=== PATIENT | female | born 1940 | race African-American/Black ===

== ENCOUNTER 2017-04-04 09:41 | Emergency (ER) | payer MEDICARE, OTHER ==
--- NOTE | 2017-04-04 11:27 | ED ---
GI Bleed HPI - General Chief complaint: GI Bleed Stated complaint: Blood in stool Time Seen by Provider: 04/04/17 11:00 Source: patient, RN notes reviewed Mode of arrival: wheelchair Limitations: no limitations - History of Present Illness Initial comments: This is a 77-year-old female who presents with complaints of blood per rectum. She did have a history of hemorrhoids in the past she denies any overt abdominal pain though she did have some left-sided chest pain was sharp in nature and radiated to her back area. He does state the pain was sharp she has had this chest pain and back pain for last 4 days she states it gets worse with movements and deep breathing she has any fevers chills sweats cough or other symptoms. MD complaint: blood on toilet paper - Related Data Home Medications Medication Instructions Recorded Confirmed Ascorbic Acid [Vitamin C] 500 mg PO DAILY@1200 06/20/14 04/04/17 Chlorthalidone 25 mg PO DAILY 06/20/14 04/04/17 Isosorbide Mononitrate [Imdur] 30 mg PO DAILY 06/20/14 04/04/17 Lisinopril [Lisinopril] 20 mg PO HS 06/20/14 04/04/17 Nitroglycerin Sl Tabs [Nitrostat] 0.4 mg SUBLINGUAL Q5M PRN 06/20/14 04/04/17 Simvastatin [Simvastatin] 40 mg PO HS 06/20/14 04/04/17 amLODIPine [amLODIPine] 10 mg PO DAILY 06/20/14 04/04/17 Cholecalciferol [Vitamin D3] 1,000 unit PO DAILY 04/04/17 04/04/17 Fish Oil/Dha/Epa [Fish Oil 1,200 1 cap PO DAILY 04/04/17 04/04/17 mg Fish Oil] Allergies Allergy/AdvReac Type Severity Reaction Status Date / Time Penicillins AdvReac Unknown Verified 04/04/17 11:25 Review of Systems ROS Statement: Those systems with pertinent positive or pertinent negative responses have been documented in the HPI. ROS Other: All systems not noted in ROS Statement are negative. Past Medical History Past Medical History: Coronary Artery Disease (CAD), Chest Pain / Angina, Heart Failure, COPD, GERD/Reflux, Hyperlipidemia, Hypertension, Pneumonia Additional Past Medical History / Comment(s): GOUT History of Any Multi-Drug Resistant Organisms: None Reported Additional Past Surgical History / Comment(s): breast biopdy Past Anesthesia/Blood Transfusion Reactions: No Reported Reaction Past Psychological History: No Psychological Hx Reported Smoking Status: Never smoker Past Alcohol Use History: None Reported Past Drug Use History: None Reported General Exam - General Exam Comments Initial Comments: This is a well-developed well-nourished awake alert oriented 3 female Limitations: no limitations General appearance: alert, in no apparent distress Head exam: Present: atraumatic, normocephalic, normal inspection Eye exam: Present: normal appearance, PERRL, EOMI. Absent: scleral icterus, conjunctival injection, periorbital swelling ENT exam: Present: normal exam, mucous membranes moist Neck exam: Present: normal inspection. Absent: tenderness, meningismus, lymphadenopathy Respiratory exam: Present: normal lung sounds bilaterally, chest wall tenderness (Reproducible tenderness palpation along the costochondral margin.). Absent: respiratory distress, wheezes, rales, rhonchi, stridor Cardiovascular Exam: Present: regular rate, normal rhythm, normal heart sounds. Absent: systolic murmur, diastolic murmur, rubs, gallop, clicks GI/Abdominal exam: Present: soft, normal bowel sounds. Absent: distended, tenderness, guarding, rebound, rigid, pulsatile mass, hernia Extremities exam: Present: normal inspection, full ROM, normal capillary refill. Absent: tenderness, pedal edema, joint swelling, calf tenderness Back exam: Present: normal inspection Neurological exam: Present: alert, oriented X3, CN II-XII intact Psychiatric exam: Present: normal affect, normal mood Skin exam: Present: warm, dry, intact, normal color. Absent: rash Course Vital Signs 04/04/17 04/04/17 04/04/17 10:11 10:28 14:26 Temperature 98.4 F 97.1 F L 97.2 F L Pulse Rate 62 56 L 55 L Respiratory 20 15 18 Rate Blood Pressure 142/61 125/63 160/72 O2 Sat by Pulse 98 100 100 Oximetry - Reevaluation(s) Reevaluation #1: 04/04/17 14:48 I did perform rectal exam of the patient with female 7 present no gross blood and was heme-negative. Medical Decision Making - Medical Decision Making I did discuss findings with the patient family - Lab Data Result diagrams: 04/04/17 11:30 04/04/17 11:30 Lab Results 04/04/17 04/04/17 04/04/17 Range/Units 11:30 11:30 11:30 WBC 4.9 (3.8-10.6) k/uL RBC 3.70 L (3.80-5.40) m/uL Hgb 11.1 L (11.4-16.0) gm/dL Hct 34.0 (34.0-46.0) % MCV 91.9 (80.0-100.0) fL MCH 30.1 (25.0-35.0) pg MCHC 32.7 (31.0-37.0) g/dL RDW 13.1 (11.5-15.5) % Plt Count 162 (150-450) k/uL Neutrophils % 51 % Lymphocytes % 36 % Monocytes % 7 % Eosinophils % 2 % Basophils % 1 % Neutrophils # 2.5 (1.3-7.7) k/uL Lymphocytes # 1.7 (1.0-4.8) k/uL Monocytes # 0.4 (0-1.0) k/uL Eosinophils # 0.1 (0-0.7) k/uL Basophils # 0.1 (0-0.2) k/uL PT (9.0-12.0) sec INR (<1.1) APTT (22.0-30.0) sec Sodium 138 (137-145) mmol/L Potassium 4.2 (3.5-5.1) mmol/L Chloride 100 (98-107) mmol/L Carbon Dioxide 30 (22-30) mmol/L Anion Gap 8 mmol/L BUN 22 H (7-17) mg/dL Creatinine 1.16 H (0.52-1.04) mg/dL Est GFR (MDRD) Af Amer 55 (>60 ml/min/1.73 sqM) Est GFR (MDRD) Non-Af 45 (>60 ml/min/1.73 sqM) Glucose 96 (74-99) mg/dL Calcium 9.5 (8.4-10.2) mg/dL Magnesium 1.9 (1.6-2.3) mg/dL Total Bilirubin 0.7 (0.2-1.3) mg/dL AST 37 H (14-36) U/L ALT 31 (9-52) U/L Alkaline Phosphatase 43 (38-126) U/L Total Creatine Kinase 460 H (30-135) U/L CK-MB (CK-2) 2.6 H* (0.0-2.4) ng/mL CK-MB (CK-2) Rel Index 0.6 Troponin I <0.012 (0.000-0.034) ng/mL Total Protein 7.2 (6.3-8.2) g/dL Albumin 4.0 (3.5-5.0) g/dL Stool Occult Blood (Negative) Blood Type Blood Type Recheck Antibody Screen Spec Expiration Date 04/04/17 04/04/17 04/04/17 Range/Units 11:30 11:30 13:33 WBC (3.8-10.6) k/uL RBC (3.80-5.40) m/uL Hgb (11.4-16.0) gm/dL Hct (34.0-46.0) % MCV (80.0-100.0) fL MCH (25.0-35.0) pg MCHC (31.0-37.0) g/dL RDW (11.5-15.5) % Plt Count (150-450) k/uL Neutrophils % % Lymphocytes % % Monocytes % % Eosinophils % % Basophils % % Neutrophils # (1.3-7.7) k/uL Lymphocytes # (1.0-4.8) k/uL Monocytes # (0-1.0) k/uL Eosinophils # (0-0.7) k/uL Basophils # (0-0.2) k/uL PT 10.5 (9.0-12.0) sec INR 1.0 (<1.1) APTT 24.3 (22.0-30.0) sec Sodium (137-145) mmol/L Potassium (3.5-5.1) mmol/L Chloride (98-107) mmol/L Carbon Dioxide (22-30) mmol/L Anion Gap mmol/L BUN (7-17) mg/dL Creatinine (0.52-1.04) mg/dL Est GFR (MDRD) Af Amer (>60 ml/min/1.73 sqM) Est GFR (MDRD) Non-Af (>60 ml/min/1.73 sqM) Glucose (74-99) mg/dL Calcium (8.4-10.2) mg/dL Magnesium (1.6-2.3) mg/dL Total Bilirubin (0.2-1.3) mg/dL AST (14-36) U/L ALT (9-52) U/L Alkaline Phosphatase (38-126) U/L Total Creatine Kinase (30-135) U/L CK-MB (CK-2) (0.0-2.4) ng/mL CK-MB (CK-2) Rel Index Troponin I (0.000-0.034) ng/mL Total Protein (6.3-8.2) g/dL Albumin (3.5-5.0) g/dL Stool Occult Blood Negative (Negative) Blood Type O Positive Blood Type Recheck No Antibody Screen NEGATIVE Spec Expiration Date 04/07/2017 - 7164 - EKG Data -: EKG Interpreted by Nv EKG shows normal: sinus rhythm (Sinus bradycardia with a rate of 55 LA interval 206 QRS duration 90 QT/QTC of 470/449 moderate voltage criteria for LVH no acute ST-T wave changes.) - Radiology Data Radiology results: report reviewed (I did review the imaging and reports no acute findings.), image reviewed Disposition Clinical Impression: Chest wall pain, Costochondritis Disposition: HOME SELF-CARE Condition: Good Instructions: Costochondritis (ED) Referrals: Blaise Liao MD [Primary Care Provider] - 1-2 days
[2017-04-04 11:45] LABS: Basophils # (A) 0.1 k/uL (0-0.2); Basophils % (A) 1 %; CH 30.1; CHCM 32.9; Eosinophils # (A) 0.1 k/uL (0-0.7); Eosinophils % (A) 2 %; HDW 2.11; HGB 11.1 gm/dL (11.4-16.0); Luc # (Auto) 0.14; Luc % (Auto) 3; Lymphocytes # (A) 1.7 k/uL (1.0-4.8); Lymphocytes % (A) 36 %; MCH 30.1 pg (25.0-35.0); MCHC 32.7 g/dL (31.0-37.0); MCV 91.9 fL (80.0-100.0); Mean Platelet Volume 7.4; Monocytes # (A) 0.4 k/uL (0-1.0); Monocytes % (A) 7 %; Neutrophils # (A) 2.5 k/uL (1.3-7.7); Neutrophils % (A) 51 %; RDW 13.1 % (11.5-15.5); WBC 4.9 k/uL (3.8-10.6); WBC (Perox) 4.69
[2017-04-04 11:56] LABS: Partial Thromboplastin Time 24.3 sec (22.0-30.0); Prothrombin Time 10.5 sec (9.0-12.0)
--- NOTE | 2017-04-04 11:56 | XR ---
EXAMINATION TYPE: XR abdomen 1V DATE OF EXAM: 04/04/2017 11:51 AM COMPARISON: NONE HISTORY: Rectal bleeding TECHNIQUE: One view abdominal series FINDINGS: The osseous structures are intact. The bowel gas pattern is nonspecific. Severe scoliosis noted. Art hropathy of the hips. IMPRESSION: 1. Nonspecific abdomen.
--- NOTE | 2017-04-04 11:58 | XR ---
EXAMINATION TYPE: XR chest 2V DATE OF EXAM: 04/04/2017 11:51 AM COMPARISON: 12/27/2013 TECHNIQUE: PA and lateral views submitted. HISTORY: Cough FINDINGS: The lungs are clear and there is no pneumothorax, pleural effusion, or focal pneumonia. Scoliotic c urvature noted. Limited inspiration. Calcified granuloma left upper lobe suspected stable apical pleu ral thickening. Arthropathy of the shoulders and diffuse osteopenia. No overt failure. IMPRESSION: 1. No acute process.
[2017-04-04 12:04] LABS: Calcium 9.5 mg/dL (8.4-10.2); Magnesium 1.9 mg/dL (1.6-2.3); Potassium 4.2 mmol/L (3.5-5.1); Total Bilirubin 0.7 mg/dL (0.2-1.3); Total Protein 7.2 g/dL (6.3-8.2)
[2017-04-04 12:10] LABS: Creatine Kinase 460 U/L (30-135)
[2017-04-04 12:24] LABS: Troponin I <0.012 ng/mL (0.000-0.034)
[2017-04-04 12:45] LABS: Creatine Kinase MB 2.6 ng/mL (0.0-2.4)
[2017-04-04 14:26] VITALS: BP 160/72; PULSE 55; RESP 18; TEMP 97.2
== END 2017-04-04 15:00 | disposition home or self-care (01) ==
LOC: EC 09:41
DX: M94.0 Chondrocostal junction syndrome [Tietze] (principal); K92.2 Gastrointestinal hemorrhage, unspecified; I25.10 Atherosclerotic heart disease of native coronary artery without angina pectoris; E78.5 Hyperlipidemia, unspecified; I11.0 Hypertensive heart disease with heart failure; I50.9 Heart failure, unspecified; Z79.899 Other long term (current) drug therapy; Z88.0 Allergy status to penicillin
CPT/HCPCS: 36415; 71020; 74000; 80053; 82272; 82550; 82553; 83735; 84484; 85025; 85610; 85730; 86850; 86900; 86901; 93005; 99285

== ENCOUNTER 2018-01-15 10:04 | Emergency (ER) | payer MEDICARE, OTHER ==
[2018-01-15] MEDS ORDERED: SODIUM CHLORIDE 0.9% 1,000 ML IV STA (11:04)
[2018-01-15] MEDS ORDERED: FAMOTIDINE 20 MG/2 ML VIAL IV STA (11:05)
--- NOTE | 2018-01-15 11:21 | ED ---
GI Bleed HPI - General Chief complaint: GI Bleed Stated complaint: black stool Time Seen by Provider: 01/15/18 10:29 Source: patient, family, RN notes reviewed Mode of arrival: ambulatory Limitations: no limitations - History of Present Illness Initial comments: This is an 78-year-old female who states she had the onset of diarrhea on the first of this month some mild epigastric discomfort which she states she's been having black stools for last day or so she does admit she's been taking Pepto- Bismol. She has no prior history of GI bleed. Her son states she's been eating pigtail and believes this may be part of the problem. She also looks a little pale per the patient's son she has been slightly lightheaded she had no nausea vomiting fevers chills sweats or other symptoms. MD complaint: melena - Related Data Home Medications Medication Instructions Recorded Confirmed Ascorbic Acid [Vitamin C] 500 mg PO DAILY 06/20/14 01/15/18 Chlorthalidone 25 mg PO DAILY 06/20/14 01/15/18 Isosorbide Mononitrate [Imdur] 30 mg PO DAILY 06/20/14 01/15/18 Cholecalciferol [Vitamin D3] 1,000 unit PO DAILY 04/04/17 01/15/18 Fish Oil/Dha/Epa [Fish Oil 1,200 2 cap PO DAILY@1200 04/04/17 01/15/18 mg Fish Oil] amLODIPine [Norvasc] 5 mg PO DAILY 09/16/17 01/15/18 Albuterol Inhaler [Ventolin Hfa 2 puff INHALATION RT-QID PRN 01/15/18 01/15/18 Inhaler] Cyanocobalamin [Vitamin B-12] 500 mcg PO DAILY@1200 01/15/18 01/15/18 Lisinopril [Zestril] 20 mg PO DAILY 01/15/18 01/15/18 Allergies Allergy/AdvReac Type Severity Reaction Status Date / Time Penicillins AdvReac Unknown Verified 01/15/18 10:43 Review of Systems ROS Statement: Those systems with pertinent positive or pertinent negative responses have been documented in the HPI. ROS Other: All systems not noted in ROS Statement are negative. Past Medical History Past Medical History: Coronary Artery Disease (CAD), Chest Pain / Angina, Heart Failure, COPD, GERD/Reflux, Hyperlipidemia, Hypertension, Pneumonia Additional Past Medical History / Comment(s): GOUT History of Any Multi-Drug Resistant Organisms: None Reported Additional Past Surgical History / Comment(s): breast biopdy Past Anesthesia/Blood Transfusion Reactions: No Reported Reaction Past Psychological History: No Psychological Hx Reported Smoking Status: Never smoker Past Alcohol Use History: None Reported Past Drug Use History: None Reported General Exam - General Exam Comments Initial Comments: This is a well-developed well-nourished awake alert oriented 3 female Limitations: no limitations General appearance: alert, in no apparent distress Head exam: Present: atraumatic, normocephalic, normal inspection Eye exam: Present: normal appearance, PERRL, EOMI. Absent: scleral icterus, conjunctival injection, periorbital swelling ENT exam: Present: normal exam, mucous membranes moist Neck exam: Present: normal inspection. Absent: tenderness, meningismus, lymphadenopathy Respiratory exam: Present: normal lung sounds bilaterally. Absent: respiratory distress, wheezes, rales, rhonchi, stridor Cardiovascular Exam: Present: regular rate, normal rhythm, normal heart sounds. Absent: systolic murmur, diastolic murmur, rubs, gallop, clicks GI/Abdominal exam: Present: soft, normal bowel sounds. Absent: distended, tenderness, guarding, rebound, rigid Rectal exam: Present: normal inspection, other (Brown soft stool no gross blood no evidence of any black material) Extremities exam: Present: normal inspection, full ROM, normal capillary refill. Absent: tenderness, pedal edema, joint swelling, calf tenderness Back exam: Present: normal inspection Neurological exam: Present: alert, oriented X3, CN II-XII intact Psychiatric exam: Present: normal affect, normal mood Skin exam: Present: warm, dry, intact, normal color. Absent: rash Course Vital Signs 01/15/18 01/15/18 10:25 12:31 Temperature 97.7 F Pulse Rate 70 55 L Respiratory 20 18 Rate Blood Pressure 145/72 165/70 O2 Sat by Pulse 100 99 Oximetry Medical Decision Making - Medical Decision Making Reevaluation patient reveals no symptoms. I did discuss the findings with her and her son were present. The dark-colored stools are consistent with Pepto- Bismol ingestion. The Hemoccult was negative. Patient be discharged to follow- up with her doctor. - Lab Data Result diagrams: 01/15/18 11:55 01/15/18 11:55 Lab Results 01/15/18 01/15/18 01/15/18 Range/Units 11:55 11:55 11:55 WBC 4.9 (3.8-10.6) k/uL RBC 3.68 L (3.80-5.40) m/uL Hgb 10.8 L (11.4-16.0) gm/dL Hct 32.9 L (34.0-46.0) % MCV 89.3 (80.0-100.0) fL MCH 29.4 (25.0-35.0) pg MCHC 32.9 (31.0-37.0) g/dL RDW 13.3 (11.5-15.5) % Plt Count 163 (150-450) k/uL Neutrophils % 52 % Lymphocytes % 37 % Monocytes % 6 % Eosinophils % 2 % Basophils % 0 % Neutrophils # 2.5 (1.3-7.7) k/uL Lymphocytes # 1.8 (1.0-4.8) k/uL Monocytes # 0.3 (0-1.0) k/uL Eosinophils # 0.1 (0-0.7) k/uL Basophils # 0.0 (0-0.2) k/uL PT 10.2 (9.0-12.0) sec INR 1.0 (<1.2) APTT 23.5 (22.0-30.0) sec Sodium 138 (137-145) mmol/L Potassium 3.5 (3.5-5.1) mmol/L Chloride 100 (98-107) mmol/L Carbon Dioxide 31 H (22-30) mmol/L Anion Gap 7 mmol/L BUN 28 H (7-17) mg/dL Creatinine 1.24 H (0.52-1.04) mg/dL Est GFR (MDRD) Af Amer 50 (>60 ml/min/1.73 sqM) Est GFR (MDRD) Non-Af 42 (>60 ml/min/1.73 sqM) Glucose 87 (74-99) mg/dL Calcium 9.4 (8.4-10.2) mg/dL Magnesium 2.1 (1.6-2.3) mg/dL Total Bilirubin 0.4 (0.2-1.3) mg/dL AST 29 (14-36) U/L ALT 27 (9-52) U/L Alkaline Phosphatase 49 (38-126) U/L Total Creatine Kinase (30-135) U/L CK-MB (CK-2) (0.0-2.4) ng/mL CK-MB (CK-2) Rel Index Troponin I (0.000-0.034) ng/mL Total Protein 6.8 (6.3-8.2) g/dL Albumin 3.8 (3.5-5.0) g/dL Stool Occult Blood (Negative) 01/15/18 01/15/18 Range/Units 11:55 11:55 WBC (3.8-10.6) k/uL RBC (3.80-5.40) m/uL Hgb (11.4-16.0) gm/dL Hct (34.0-46.0) % MCV (80.0-100.0) fL MCH (25.0-35.0) pg MCHC (31.0-37.0) g/dL RDW (11.5-15.5) % Plt Count (150-450) k/uL Neutrophils % % Lymphocytes % % Monocytes % % Eosinophils % % Basophils % % Neutrophils # (1.3-7.7) k/uL Lymphocytes # (1.0-4.8) k/uL Monocytes # (0-1.0) k/uL Eosinophils # (0-0.7) k/uL Basophils # (0-0.2) k/uL PT (9.0-12.0) sec INR (<1.2) APTT (22.0-30.0) sec Sodium (137-145) mmol/L Potassium (3.5-5.1) mmol/L Chloride (98-107) mmol/L Carbon Dioxide (22-30) mmol/L Anion Gap mmol/L BUN (7-17) mg/dL Creatinine (0.52-1.04) mg/dL Est GFR (MDRD) Af Amer (>60 ml/min/1.73 sqM) Est GFR (MDRD) Non-Af (>60 ml/min/1.73 sqM) Glucose (74-99) mg/dL Calcium (8.4-10.2) mg/dL Magnesium (1.6-2.3) mg/dL Total Bilirubin (0.2-1.3) mg/dL AST (14-36) U/L ALT (9-52) U/L Alkaline Phosphatase (38-126) U/L Total Creatine Kinase 252 H (30-135) U/L CK-MB (CK-2) 1.9 (0.0-2.4) ng/mL CK-MB (CK-2) Rel Index 0.8 Troponin I <0.012 (0.000-0.034) ng/mL Total Protein (6.3-8.2) g/dL Albumin (3.5-5.0) g/dL Stool Occult Blood Negative (Negative) - EKG Data -: EKG Interpreted by La EKG shows normal: sinus rhythm (EKG shows sinus bradycardia rate of 49 UT interval 192 QRS duration 94 QT since QTC of 468/422 minimal voltage criteria for LVH no acute ST-T wave changes) - Radiology Data Radiology results: report reviewed (Imaging was reviewed no acute findings.), image reviewed Disposition Clinical Impression: Enteritis, Feared condition not demonstrated, Chronic renal insufficiency, Chronic anemia Disposition: HOME SELF-CARE Condition: Good Instructions: Enteritis (ED) Referrals: Blaise Liao MD [Primary Care Provider] - 1-2 days
[2018-01-15 12:22] LABS: Basophils % (A) 0 %; Eosinophils # (A) 0.1 k/uL (0-0.7); Eosinophils % (A) 2 %; HCT 32.9 % (34.0-46.0); HGB 10.8 gm/dL (11.4-16.0); Lymphocytes # (A) 1.8 k/uL (1.0-4.8); Lymphocytes % (A) 37 %; MCH 29.4 pg (25.0-35.0); MCHC 32.9 g/dL (31.0-37.0); MCV 89.3 fL (80.0-100.0); Mean Platelet Volume 7.3; Monocytes # (A) 0.3 k/uL (0-1.0); Monocytes % (A) 6 %; Neutrophils # (A) 2.5 k/uL (1.3-7.7); Neutrophils % (A) 52 %; Platelet Count 163 k/uL (150-450); RBC 3.68 m/uL (3.80-5.40); RDW 13.3 % (11.5-15.5); WBC 4.9 k/uL (3.8-10.6)
[2018-01-15 12:29] LABS: Partial Thromboplastin Time 23.5 sec (22.0-30.0); Prothrombin Time 10.2 sec (9.0-12.0)
[2018-01-15 12:31] LABS: Albumin 3.8 g/dL (3.5-5.0); Calcium 9.4 mg/dL (8.4-10.2); Potassium 3.5 mmol/L (3.5-5.1); Total Bilirubin 0.4 mg/dL (0.2-1.3); Total Protein 6.8 g/dL (6.3-8.2)
[2018-01-15 12:32] VITALS: RESP 18
[2018-01-15 12:34] LABS: Creatine Kinase 252 U/L (30-135)
--- NOTE | 2018-01-15 12:44 | XR ---
EXAMINATION TYPE: XR abdomen acute w cxr DATE OF EXAM: 01/15/2018 CLINICAL HISTORY: Diarrhea for 4 days. Chest pain. TECHNIQUE: Single frontal view of chest is obtained. Supine and upright views of the abdomen are acq uired. COMPARISON: CXR from 09/16/2017. FINDINGS: There is chronic parenchymal change without suspicious focal airspace opacity, pleural effu gino, or pneumothorax seen bilaterally. Cardiac silhouette size appears stable and upper limits of n ormal with ectatic thoracic aorta. Underlying scoliosis is redemonstrated. Gas is noted in nondistended small bowel loops. Gas and fecal material is seen in nondistended colon . Scattered pelvic phleboliths are seen. Underlying scoliosis is present. No pneumoperitoneum is iden tified. IMPRESSION: 1. No acute pulmonary process. 2. Overall nonspecific but likely nonobstructive bowel gas pattern.
[2018-01-15 12:47] LABS: Creatine Kinase MB 1.9 ng/mL (0.0-2.4); Troponin I <0.012 ng/mL (0.000-0.034)
[2018-01-15 13:44] VITALS: BP 166/79; PULSE 60; TEMP 98
== END 2018-01-15 13:41 | disposition home or self-care (01) ==
LOC: EC 10:04
DX: K52.9 Noninfective gastroenteritis and colitis, unspecified (principal); D64.9 Anemia, unspecified; N18.9 Chronic kidney disease, unspecified; Z71.1 Person with feared health complaint in whom no diagnosis is made; R00.1 Bradycardia, unspecified; I13.0 Hypertensive heart and chronic kidney disease with heart failure and stage 1 through stage 4 chronic kidney disease, or unspecified chronic kidney disease; I50.9 Heart failure, unspecified; I25.10 Atherosclerotic heart disease of native coronary artery without angina pectoris; Z79.899 Other long term (current) drug therapy; Z88.0 Allergy status to penicillin; Z86.79 Personal history of other diseases of the circulatory system
CPT/HCPCS: 36415; 74022; 80053; 82272; 82550; 82553; 83735; 84484; 85025; 85610; 85730; 86850; 86900; 86901; 93005; 96361; 96374; 99285

== ENCOUNTER → 2018-03-12 | Outpatient (CLI) | payer MEDICARE, OTHER ==
[2018-03-12 12:01] LABS: Basophils % (A) 1 %; Eosinophils # (A) 0.1 k/uL (0-0.7); Eosinophils % (A) 1 %; HCT 36.4 % (34.0-46.0); HGB 11.5 gm/dL (11.4-16.0); Lymphocytes # (A) 2.2 k/uL (1.0-4.8); Lymphocytes % (A) 39 %; MCH 28.4 pg (25.0-35.0); MCHC 31.5 g/dL (31.0-37.0); Mean Platelet Volume 7.2; Monocytes # (A) 0.4 k/uL (0-1.0); Monocytes % (A) 7 %; Neutrophils # (A) 2.9 k/uL (1.3-7.7); Neutrophils % (A) 51 %; Platelet Count 219 k/uL (150-450); RBC 4.05 m/uL (3.80-5.40); RDW 13.1 % (11.5-15.5); WBC 5.7 k/uL (3.8-10.6)
[2018-03-12 12:12] LABS: Appearance,Urine Cloudy (Clear); Bilirubin,Urine Negative (Negative); Blood,Urine Negative (Negative); Calcium 9.8 mg/dL (8.4-10.2); Color,Urine Yellow; Glucose,Urine (UA) Negative (Negative); Hyaline Casts,Urine 3 /lpf (0-2); Ketones,Urine Negative (Negative); Leukocyte Esterase,Urine Trace (Negative); Mucus,Urine Rare /hpf; Nitrite,Urine Negative (Negative); PH, Urine 6.5 (5.0-8.0); Phosphorus 3.7 mg/dL (2.5-4.5); Potassium 3.8 mmol/L (3.5-5.1); Protein,Urine Trace (Negative); RBC,Urine <1 /hpf (0-5); Specific Gravity,Urine 1.017 (1.001-1.035); Squamous Epithelial Cell,Urine 6 /hpf (0-4); Uric Acid 6.7 mg/dL (3.7-7.4); Urobilinogen,Urine <2.0 mg/dL (<2.0); WBC,Urine 1 /hpf (0-5)
[2018-03-12 17:33] LABS: Parathyroid Hormone Intact 54.3 pg/mL (14.0-72.0)
[2018-03-12 17:49] LABS: Iron Saturation 18.15 (12.00-45.00)
[2018-03-12 17:57] LABS: Vitamin D 25 Hydroxy 27.4 ng/mL (30.0-100.0)
== END | disposition home or self-care (01) ==
LOC: LABWHC1 11:14
PROVIDERS: ATTEND Internal Medicine Nephrology
DX: M10.9 Gout, unspecified (principal); D63.1 Anemia in chronic kidney disease; E83.39 Other disorders of phosphorus metabolism; N18.3 Chronic kidney disease, stage 3 (moderate)
CPT/HCPCS: 36415; 80048; 81001; 82306; 82728; 83540; 83550; 83735; 83970; 84100; 84550; 85025

== ENCOUNTER → 2018-07-31 | Outpatient (CLI) | payer MEDICARE, OTHER ==
--- NOTE | 2018-07-31 11:39 | XR ---
EXAMINATION TYPE: XR foot complete bilateral DATE OF EXAM: 07/31/2018 COMPARISON: NONE HISTORY: Pain TECHNIQUE: Three views are submitted of each foot. FINDINGS: The osseous structures are intact. There is no acute fracture or dislocation. There is diffuse ost eopenia. There is arthropathy of the first MTP joint bilaterally. Pes planus deformity noted bilatera lly and there are calcaneal spurs bilaterally. Hammertoe deformities bilaterally. Hallux valgus defor mity of the first digit bilaterally. There is a hypertrophic change and narrowing of the calcaneocuboid joint on the left greater than the right. IMPRESSION: 1. Pes planus deformities bilaterally 2. Diffuse osteopenia 3. Arthropathy
== END | disposition home or self-care (01) ==
LOC: RADXRMAIN 11:05
PROVIDERS: ATTEND Family Medicine
DX: M21.42 Flat foot [pes planus] (acquired), left foot (principal); M21.41 Flat foot [pes planus] (acquired), right foot; M85.872 Other specified disorders of bone density and structure, left ankle and foot; M85.871 Other specified disorders of bone density and structure, right ankle and foot; M12.872 Other specific arthropathies, not elsewhere classified, left ankle and foot; M12.871 Other specific arthropathies, not elsewhere classified, right ankle and foot

== ENCOUNTER → 2018-11-02 | Outpatient (CLI) | payer MEDICARE, OTHER ==
--- NOTE | 2018-11-08 10:05 | MM ---
Reason for exam: screening (asymptomatic). Last mammogram was performed 1 year ago. History: Patient is postmenopausal. Benign excisional biopsy of the left breast, June 2014. Benign left mammotome panel of the left breast, October 21, 2013. Benign core biopsy of the left breast. Benign excisional biopsy of the left breast. Took hormonal contraceptives for 2 years. Physical Findings: A clinical breast exam by your physician is recommended on an annual basis and results should be correlated with mammographic findings. MG 3D Screening Mammo W/Cad Bilateral CC and MLO view(s) were taken. Prior study comparison: October 24, 2017, bilateral MG 3d screening mammo w/cad. October 03, 2016, bilateral MG 3d screening mammo w/cad. There are scattered fibroglandular densities. Stable benign calcifications. There is no discrete abnormality. No significant changes when compared with prior studies. ASSESSMENT: Benign, BI-RAD 2 RECOMMENDATION: Routine screening mammogram of both breasts in 1 year.
== END | disposition home or self-care (01) ==
LOC: RADMAMWWP 13:53
PROVIDERS: ATTEND Family Medicine
DX: Z12.31 Encounter for screening mammogram for malignant neoplasm of breast (principal)
CPT/HCPCS: 77063; 77067

== ENCOUNTER 2018-11-09 13:35 | Emergency (ER) | payer MEDICARE, OTHER ==
[2018-11-09 13:47] VITALS: RESP 18; TEMP 98.1
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
[2018-11-09 14:34] LABS: Basophils % (A) 1 %; Eosinophils # (A) 0.2 k/uL (0-0.7); Eosinophils % (A) 3 %; HCT 35.6 % (34.0-46.0); HGB 11.9 gm/dL (11.4-16.0); Lymphocytes # (A) 2.4 k/uL (1.0-4.8); Lymphocytes % (A) 38 %; MCH 29.9 pg (25.0-35.0); MCHC 33.3 g/dL (31.0-37.0); MCV 89.7 fL (80.0-100.0); Mean Platelet Volume 6.8; Monocytes # (A) 0.4 k/uL (0-1.0); Monocytes % (A) 6 %; Neutrophils # (A) 3.1 k/uL (1.3-7.7); Neutrophils % (A) 51 %; Platelet Count 194 k/uL (150-450); RBC 3.97 m/uL (3.80-5.40); RDW 13.7 % (11.5-15.5); WBC 6.2 k/uL (3.8-10.6)
[2018-11-09 14:44] LABS: Calcium 9.6 mg/dL (8.4-10.2)
--- NOTE | 2018-11-09 15:22 | US ---
EXAMINATION TYPE: US venous doppler duplex LE DATE OF EXAM: 11/09/2018 2:09 PM COMPARISON: NONE CLINICAL HISTORY: Pain. SIDE PERFORMED: Bilateral TECHNIQUE: The lower extremity deep venous system is examined utilizing real time linear array sonog ozzy with graded compression, doppler sonography and color-flow sonography. VESSELS IMAGED: External Iliac Vein (EIV) Common Femoral Vein Deep Femoral Vein Greater Saphenous Vein * Femoral Vein Popliteal Vein Small Saphenous Vein * Proximal Calf Veins (* superficial vessels) Right Leg: Negative for DVT Left Leg: Negative for DVT Unable to augment due to patient position. IMPRESSION: 1. Bilateral Lower extremity ultrasound negative for deep venous tendinosis.
--- NOTE | 2018-11-09 16:31 | XR ---
EXAMINATION TYPE: XR chest 2V DATE OF EXAM: 11/09/2018 COMPARISON: Chest x-ray September 16, 2017 HISTORY: Lower leg swelling and chest pain. TECHNIQUE: Frontal and lateral views of the chest are obtained. FINDINGS: Exam suboptimal due to patient's large body habitus There is redemonstration of cardiomega ly with ectatic thoracic aorta. Densities over the epigastric region on frontal view do not reproduc e on lateral view presumed external to the patient. Suspect mild central vascular congestion. No new focal airspace opacity, pleural effusion, or pneumothorax is seen. Underlying scoliosis is redemonstr ated. IMPRESSION: Cardiomegaly with perhaps mild central vascular congestion but no focal infiltrate.
[2018-11-09 16:59] VITALS: BP 149/74; PULSE 61
== END 2018-11-09 16:59 | disposition home or self-care (01) ==
LOC: EC 13:35
DX: M79.89 Other specified soft tissue disorders (principal); M79.604 Pain in right leg; M79.605 Pain in left leg; I25.10 Atherosclerotic heart disease of native coronary artery without angina pectoris; I11.0 Hypertensive heart disease with heart failure; I50.9 Heart failure, unspecified; Z79.899 Other long term (current) drug therapy; Z88.0 Allergy status to penicillin
CPT/HCPCS: 36415; 71046; 80048; 83880; 85025; 93005; 93970; 99284

== ENCOUNTER → 2019-01-11 | Outpatient (CLI) | payer MEDICARE, OTHER ==
[2019-01-11 13:21] LABS: Appearance,Urine Clear (Clear); Bilirubin,Urine Negative (Negative); Blood,Urine Negative (Negative); Color,Urine Yellow; Glucose,Urine (UA) Negative (Negative); Ketones,Urine Negative (Negative); Leukocyte Esterase,Urine Negative (Negative); Nitrite,Urine Negative (Negative); Protein,Urine Trace (Negative); Specific Gravity,Urine 1.009 (1.001-1.035); Urobilinogen,Urine <2.0 mg/dL (<2.0)
[2019-01-11 13:22] LABS: Basophils % (A) 1 %; Eosinophils # (A) 0.1 k/uL (0-0.7); Eosinophils % (A) 2 %; HCT 37.9 % (34.0-46.0); HGB 12.2 gm/dL (11.4-16.0); Lymphocytes # (A) 2.1 k/uL (1.0-4.8); Lymphocytes % (A) 38 %; MCH 29.5 pg (25.0-35.0); MCHC 32.3 g/dL (31.0-37.0); MCV 91.4 fL (80.0-100.0); Mean Platelet Volume 6.3; Monocytes # (A) 0.3 k/uL (0-1.0); Monocytes % (A) 6 %; Neutrophils # (A) 2.9 k/uL (1.3-7.7); Neutrophils % (A) 52 %; Platelet Count 211 k/uL (150-450); RBC 4.15 m/uL (3.80-5.40); RDW 13.7 % (11.5-15.5); WBC 5.6 k/uL (3.8-10.6)
[2019-01-11 19:42] LABS: Iron Saturation 31.62 (12.00-45.00)
[2019-01-11 19:48] LABS: Albumin 4.5 g/dL (3.80-4.90); Anion Gap 10.6 mmol/L (4.00-12.00); Carbon Dioxide 27.4 mmol/L (21.6-31.8); LDL Cholesterol,Calculated 141.8 mg/dL (0.0-131.0); Phosphorus 4.2 mg/dL (2.4-5.1); Potassium 4.4 mmol/L (3.5-5.5); Uric Acid 5.8 mg/dL (2.9-7.7); VLDL Calculation 12.2 mg/dL (5.00-40.00)
[2019-01-11 20:15] LABS: Parathyroid Hormone Intact 73.7 pg/mL (14.0-72.0)
== END ==
LOC: LABWHC1 01-10 13:14
PROVIDERS: ATTEND Nurse Practitioner Family
DX: E55.9 Vitamin D deficiency, unspecified (principal); E83.39 Other disorders of phosphorus metabolism; D63.1 Anemia in chronic kidney disease; N18.3 Chronic kidney disease, stage 3 (moderate); D50.9 Iron deficiency anemia, unspecified; N25.81 Secondary hyperparathyroidism of renal origin; M10.9 Gout, unspecified; N39.0 Urinary tract infection, site not specified; E83.52 Hypercalcemia
CPT/HCPCS: 36415; 80048; 80061; 81003; 82040; 82728; 83540; 83550; 83735; 83970; 84100; 84550; 85025

== ENCOUNTER 2019-01-16 12:26 | Emergency (ER) | payer MEDICARE, OTHER ==
[2019-01-16] MEDS ORDERED: Acetaminophen-Codeine 300-30mg TAB PO STA (13:19)
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
[2019-01-16 15:58] VITALS: BP 158/70; PULSE 68; RESP 18; TEMP 98
== END 2019-01-16 15:30 | disposition home or self-care (01) ==
LOC: EC 12:26
DX: S39.012A Strain of muscle, fascia and tendon of lower back, initial encounter (principal); S16.1XXA Strain of muscle, fascia and tendon at neck level, initial encounter; I25.119 Atherosclerotic heart disease of native coronary artery with unspecified angina pectoris; I11.0 Hypertensive heart disease with heart failure; I50.9 Heart failure, unspecified; Z79.899 Other long term (current) drug therapy; Z88.0 Allergy status to penicillin; V89.2XXA Person injured in unspecified motor-vehicle accident, traffic, initial encounter; Y92.410 Unspecified street and highway as the place of occurrence of the external cause
CPT/HCPCS: 70450; 72125; 72128; 72131; 99284

== ENCOUNTER → 2019-02-28 | Outpatient (CLI) | payer MEDICARE, OTHER ==
--- NOTE | 2019-02-28 14:11 | US ---
EXAMINATION TYPE: US venous doppler duplex LE LT DATE OF EXAM: 02/28/2019 1:51 PM COMPARISON: Bilateral lower extremity venous ultrasound November 09, 2018 CLINICAL HISTORY: R60.0 left leg swelling. Left leg swelling x couple weeks SIDE PERFORMED: Left TECHNIQUE: The lower extremity deep venous system is examined utilizing real time linear array sonog ozzy with graded compression, doppler sonography and color-flow sonography. VESSELS IMAGED: External Iliac Vein (EIV) Common Femoral Vein Deep Femoral Vein Greater Saphenous Vein * Femoral Vein Popliteal Vein Small Saphenous Vein * Proximal Calf Veins (* superficial vessels) Left Leg: Appears negative for DVT Grayscale, color doppler, spectral doppler imaging performed of the deep veins of the left lower extr emity. There is normal flow, compressibility, vascular waveforms. IMPRESSION: No ultrasound evidence for acute DVT in the left lower extremity. No significant change from prior.
== END | disposition home or self-care (01) ==
LOC: RADUSWWP 13:22
PROVIDERS: ATTEND Family Medicine
DX: R60.0 Localized edema (principal); Z88.0 Allergy status to penicillin

== ENCOUNTER → 2019-03-20 | Outpatient (CLI) | payer MEDICARE, OTHER ==
--- NOTE | 2019-03-21 09:45 | XR ---
EXAMINATION TYPE: XR tibia fibula LT DATE OF EXAM: 03/20/2019 COMPARISON: NONE HISTORY: Pain TECHNIQUE: Two views are submitted. FINDINGS: The osseous structures are intact. There is severe narrowing of the medial compartment knee joint wit h hypertrophic spurring. Findings compatible severe osteoarthritis. Soft tissue edema noted distally. IMPRESSION: 1. No acute osseous abnormality.
--- NOTE | 2019-03-21 09:48 | XR ---
EXAMINATION TYPE: XR knee complete LT DATE OF EXAM: 03/20/2019 COMPARISON: NONE HISTORY: Pain TECHNIQUE: Four views are submitted. FINDINGS: There is hypertrophic spurring and narrowing of all elements of the joint spaces. Spur extending off the left noted.. Osseous structures are intact. No acute fracture seen. IMPRESSION: 1. No acute fracture or dislocation. 2. Severe osteoarthritis.
== END | disposition home or self-care (01) ==
LOC: RADXRMAIN 15:53
PROVIDERS: ATTEND Family Medicine
DX: M17.12 Unilateral primary osteoarthritis, left knee (principal); M79.662 Pain in left lower leg

== ENCOUNTER → 2019-04-12 | Outpatient (CLI) | payer MEDICARE, OTHER ==
--- NOTE | 2019-04-12 16:35 | US ---
EXAMINATION TYPE: US venous doppler duplex LE LT DATE OF EXAM: 04/12/2019 4:22 PM COMPARISON: NONE CLINICAL HISTORY: M25.562 PAIN LT KNEE,M79.662 PAIN LT LOWER LEG. SIDE PERFORMED: TECHNIQUE: The lower extremity deep venous system is examined utilizing real time linear array sonog ozzy with graded compression, doppler sonography and color-flow sonography. VESSELS IMAGED: External Iliac Vein (EIV) Common Femoral Vein Deep Femoral Vein Greater Saphenous Vein * Femoral Vein Popliteal Vein Small Saphenous Vein * Proximal Calf Veins (* superficial vessels) Left Leg: Negative for DVT Left GSV also scanned per order, no thrombus seen. Posterior tib veins not visualized due to edema in left calf. IMPRESSION: No evidence of deep venous thrombosis in the left leg.
== END | disposition home or self-care (01) ==
LOC: RADUSWWP 15:54
PROVIDERS: ATTEND Orthopaedic Surgery Sports Medicine
DX: M79.662 Pain in left lower leg (principal); M25.562 Pain in left knee

== ENCOUNTER → 2019-10-02 | Outpatient (CLI) | payer MEDICARE, OTHER ==
--- NOTE | 2019-10-02 14:25 | US ---
EXAMINATION TYPE: US kidneys/renal and bladder DATE OF EXAM: 10/02/2019 COMPARISON: None CLINICAL HISTORY: N18.3 STAGE 3 CKD. Patient states having CKD. EXAM MEASUREMENTS: Right Kidney: 8.8 x 3.8 x 4.4 cm Left Kidney: 8.9 x 4.2 x 4.7 cm Limited exam due to overlying bowel gas Right Kidney: No hydronephrosis or masses seen Left Kidney: No hydronephrosis or masses seen, limited visualization due to bowel gas. Scanned throu gh ribs. Bladder: distended, anechoic Left jet seen There is no evidence for hydronephrosis at this point in time. No nephrolithiasis is seen. No enrique s are identified. The urinary bladder is anechoic. Bilateral ureteral jets are seen. IMPRESSION: Somewhat suboptimal visualization of the left kidney due to overlying bowel gas. Overall unremarkable examination with no hydronephrosis or nephrolithiasis seen.
== END ==
LOC: RADUSWWP 12:59
PROVIDERS: ATTEND Internal Medicine Nephrology
DX: N18.3 Chronic kidney disease, stage 3 (moderate) (principal)
CPT/HCPCS: 76770

== ENCOUNTER 2019-10-11 13:46 | Inpatient (IN) | payer MEDICARE, OTHER ==
[2019-10-11] MEDS ORDERED: SODIUM CHLORIDE 0.9% 1,000 ML IV STA (14:12)
[2019-10-11] MEDS ORDERED: PANTOPRAZOLE 40 MG/10 ML VIAL IVP STA (14:12)
[2019-10-11] MEDS ORDERED: ONDANSETRON 4 MG/2 ML VIAL IVP STA (14:12)
--- NOTE | 2019-10-11 14:16 | ED ---
General Adult HPI - General Chief complaint: Nausea/Vomiting/Diarrhea Stated complaint: Vomiting Time Seen by Provider: 10/11/19 14:04 Source: patient Mode of arrival: ambulatory Limitations: no limitations - History of Present Illness Initial comments: Patient is an 79-year-old female with history of heart failure is presenting to emergency Department with a chief complaint of nausea vomiting abdominal pain and diarrhea. Patient reports she woke up this morning with sudden onset of nausea and multiple episodes of nonbilious vomiting. Patient reports he was same time She has developed diarrhea. She states there is left upper quadrant and epigastric abdominal pain that is more burning sensation. Patient denies increased urgency frequency or dysuria. Patient denies hematuria, hematochezia or melena. Patient denies any chest pain or shortness of breath. Patient denies night sweats or chills. Patient reports she was at it is giving her yesterday and was eating the same food as everybody else, however another person also had similar symptoms with vomiting. - Related Data Home Medications Medication Instructions Recorded Confirmed Ascorbic Acid [Vitamin C] 500 mg PO DAILY 06/20/14 01/16/19 Isosorbide Mononitrate [Imdur] 30 mg PO DAILY 06/20/14 01/16/19 Cyanocobalamin [Vitamin B-12] 500 mcg PO DAILY 01/15/18 01/16/19 Lisinopril [Zestril] 20 mg PO DAILY 01/15/18 01/16/19 Ferrous Sulfate [Feosol] 325 mg PO DAILY 11/09/18 01/16/19 amLODIPine [Norvasc] 10 mg PO DAILY 11/09/18 01/16/19 Cholecalciferol [Vitamin D3] 1,000 unit PO DAILY 01/16/19 01/16/19 [place]-3 Fatty Acids/Fish Oil [Fish 1 cap PO DAILY 01/16/19 01/16/19 Oil 1,000 mg Softgel] Allergies Allergy/AdvReac Type Severity Reaction Status Date / Time Penicillins AdvReac Unknown Verified 10/11/19 13:55 Review of Systems ROS Statement: Those systems with pertinent positive or pertinent negative responses have been documented in the HPI. ROS Other: All systems not noted in ROS Statement are negative. Past Medical History Past Medical History: Coronary Artery Disease (CAD), Chest Pain / Angina, Heart Failure, COPD, GERD/Reflux, Hyperlipidemia, Hypertension, Pneumonia Additional Past Medical History / Comment(s): GOUT History of Any Multi-Drug Resistant Organisms: None Reported Past Surgical History: Back Surgery Additional Past Surgical History / Comment(s): breast biopsy Past Anesthesia/Blood Transfusion Reactions: No Reported Reaction Past Psychological History: No Psychological Hx Reported Smoking Status: Never smoker Past Alcohol Use History: Occasional Past Drug Use History: None Reported General Exam Limitations: no limitations General appearance: alert, in no apparent distress Head exam: Present: atraumatic, normocephalic, normal inspection Eye exam: Present: normal appearance Pupils: Present: normal accommodation ENT exam: Present: normal exam, mucous membranes moist Neck exam: Present: normal inspection, full ROM Respiratory exam: Present: normal lung sounds bilaterally Cardiovascular Exam: Present: regular rate, normal rhythm, normal heart sounds GI/Abdominal exam: Present: soft, tenderness (Left lower quadrant and epigastric tenderness.), normal bowel sounds. Absent: distended, guarding, rebound, rigid, organomegaly, mass, bruit, pulsatile mass, hernia Extremities exam: Present: normal inspection, full ROM, normal capillary refill Back exam: Present: normal inspection, full ROM Neurological exam: Present: alert, oriented X3 Psychiatric exam: Present: normal affect, normal mood Skin exam: Present: warm, dry, intact, normal color Course Vital Signs 10/11/19 13:54 Pulse Rate 67 Respiratory 20 Rate O2 Sat by Pulse 90 L Oximetry Medical Decision Making - Medical Decision Making Patient is an 79-year-old female with history of heart failure is presenting to emergency Department with a chief complaint of nausea vomiting abdominal pain. Physical exam is indicative of diffuse abdominal pain and is otherwise unremarkable. Patient does appear to be slightly dehydrated. UA showed 1+1 ketones. Patient given fluids and antiemetics. A reevaluation patient reports improvement and her symptoms. Patient had a tubal ligation several taking to go and that was the only abdominal surgery. CT of the abdomen and pelvis was obtained showing a distal small bowel obstruction and mild ascites. I suspect the ascites to be related to her heart failure. Patient has no shortness of breath or chest pain at this time. Patient will be admitted for further medical management. Case discussed with Dr. Salmeron. Accepting physician is Dr Little - Lab Data Result diagrams: 10/11/19 14:32 10/11/19 14:32 Lab Results 10/11/19 10/11/1919 Range/Units 14:32 14:32 15:27 WBC 9.1 (3.8-10.6) k/uL RBC 4.42 (3.80-5.40) m/uL Hgb 13.2 (11.4-16.0) gm/dL Hct 40.6 (34.0-46.0) % MCV 91.7 (80.0-100.0) fL MCH 29.9 (25.0-35.0) pg MCHC 32.6 (31.0-37.0) g/dL RDW 13.2 (11.5-15.5) % Plt Count 199 (150-450) k/uL Neutrophils % 87 % Lymphocytes % 10 % Monocytes % 2 % Eosinophils % 1 % Basophils % 0 % Neutrophils # 7.9 H (1.3-7.7) k/uL Lymphocytes # 0.9 L (1.0-4.8) k/uL Monocytes # 0.2 (0-1.0) k/uL Eosinophils # 0.1 (0-0.7) k/uL Basophils # 0.0 (0-0.2) k/uL Sodium 139 (137-145) mmol/L Potassium 3.6 (3.5-5.1) mmol/L Chloride 100 (98-107) mmol/L Carbon Dioxide 27 (22-30) mmol/L Anion Gap 12 mmol/L BUN 20 H (7-17) mg/dL Creatinine 1.02 (0.52-1.04) mg/dL Est GFR (CKD-EPI)AfAm 60 (>60 ml/min/1.73 sqM) Est GFR (CKD-EPI)NonAf 52 (>60 ml/min/1.73 sqM) Glucose 161 H (74-99) mg/dL Calcium 10.1 (8.4-10.2) mg/dL Total Bilirubin 0.7 (0.2-1.3) mg/dL AST 32 (14-36) U/L ALT 23 (9-52) U/L Alkaline Phosphatase 72 (38-126) U/L Total Protein 8.2 (6.3-8.2) g/dL Albumin 4.7 (3.5-5.0) g/dL Amylase 125 H (30-110) U/L Lipase 110 (23-300) U/L Urine Color Light Yellow Urine Appearance Clear (Clear) Urine pH 6.0 (5.0-8.0) Ur Specific [place] 1.012 (1.001-1.035) Urine Protein 1+ H (Negative) Urine Glucose (UA) Negative (Negative) Urine Ketones 1+ H (Negative) Urine Blood Negative (Negative) Urine Nitrite Negative (Negative) Urine Bilirubin Negative (Negative) Urine Urobilinogen <2.0 (<2.0) mg/dL Ur Leukocyte Esterase Negative (Negative) Urine RBC 1 (0-5) /hpf Urine WBC 1 (0-5) /hpf Ur Squamous Epith Cells 2 (0-4) /hpf Disposition Clinical Impression: Small bowel obstruction Disposition: ADMITTED IP TO THIS [facility] Condition: Good Instructions (If sedation given, give patient instructions): Acute Nausea and Vomiting (ED) Additional Instructions: Patient will be admitted Is patient prescribed a controlled substance at d/c from ED?: No Referrals: Blaise Liao MD [Primary Care Provider] - 1-2 days Time of Disposition: 17:00
[2019-10-11 14:53] LABS: Basophils % (A) 0 %; Eosinophils # (A) 0.1 k/uL (0-0.7); Eosinophils % (A) 1 %; HCT 40.6 % (34.0-46.0); HGB 13.2 gm/dL (11.4-16.0); Lymphocytes # (A) 0.9 k/uL (1.0-4.8); Lymphocytes % (A) 10 %; MCH 29.9 pg (25.0-35.0); MCHC 32.6 g/dL (31.0-37.0); MCV 91.7 fL (80.0-100.0); Mean Platelet Volume 7.1; Monocytes # (A) 0.2 k/uL (0-1.0); Monocytes % (A) 2 %; Neutrophils # (A) 7.9 k/uL (1.3-7.7); Neutrophils % (A) 87 %; Platelet Count 199 k/uL (150-450); RBC 4.42 m/uL (3.80-5.40); RDW 13.2 % (11.5-15.5); WBC 9.1 k/uL (3.8-10.6)
[2019-10-11 15:02] LABS: Albumin 4.7 g/dL (3.5-5.0); Calcium 10.1 mg/dL (8.4-10.2); Potassium 3.6 mmol/L (3.5-5.1); Total Bilirubin 0.7 mg/dL (0.2-1.3); Total Protein 8.2 g/dL (6.3-8.2)
[2019-10-11 15:41] LABS: Appearance,Urine Clear (Clear); Bilirubin,Urine Negative (Negative); Blood,Urine Negative (Negative); Color,Urine Light Yellow; Glucose,Urine (UA) Negative (Negative); Ketones,Urine 1+ (Negative); Leukocyte Esterase,Urine Negative (Negative); Nitrite,Urine Negative (Negative); Protein,Urine 1+ (Negative); RBC,Urine 1 /hpf (0-5); Specific Gravity,Urine 1.012 (1.001-1.035); Squamous Epithelial Cell,Urine 2 /hpf (0-4); Urobilinogen,Urine <2.0 mg/dL (<2.0)
--- NOTE | 2019-10-11 16:34 | CT ---
EXAMINATION TYPE: CT abdomen pelvis w con DATE OF EXAM: 10/11/2019 COMPARISON: 11/12/2012 HISTORY: Left sided abdominal pain with nausea, vomiting and dysuria. CT DLP: 1090.6 mGycm CONTRAST: CT scan of the abdomen and pelvis is performed without Oral Contrast and with IV Contrast, patient in jected with 100 mL of Isovue 300. FINDINGS: LUNG BASES-: No visible nodule. No infiltrate. LIVER/GB: No calcified gallstones. No space occupying hepatic lesion. Biliary tree is of normal ca liber. PANCREAS: No inflammation. No distinct mass. SPLEEN: No splenic enlargement. No lesion seen. ADRENALS: No nodule. No thickening. KIDNEYS/BLADDER: No hydronephrosis. No nephrolithiasis. No distinct renal mass. Urinary bladder g rossly unremarkable. BOWEL: Dilated small bowel measuring up to 3.1 cm with right lower quadrant transition zone. Small am ount of interloop fluid noted. No evidence for free air. There is ascites left upper quadrant noted a s well as within the pelvis. GENITAL ORGANS: No gross abnormality. LYMPH NODES: No greater than 1cm abdominal or pelvic lymph nodes are appreciated. AORTA: No significant abnormality. OSSEOUS STRUCTURES: No significant abnormality is seen. OTHER: No significant additional abnormality is seen. IMPRESSION: 1. Distal small bowel obstruction with zone of transition right lower quadrant. 2. Mild Ascites.
[2019-10-11] MEDS ORDERED: ONDANSETRON 4 MG/2 ML VIAL IVP PRN (17:17)
[2019-10-11] MEDS ORDERED: NALOXONE 0.4 MG/ML 1 ML VIAL IV PRN (17:17)
[2019-10-11] MEDS ORDERED: Acetaminophen-Codeine 300-30mg TAB PO PRN (17:17)
[2019-10-11] MEDS ORDERED: HYDROmorphone 1 MG/ML 1 ML SYRINGE IVP PRN (17:17)
[2019-10-11] MEDS ORDERED: ALPRAZolam 0.25 MG TAB PO PRN (17:17)
--- NOTE | 2019-10-11 19:16 | XR ---
EXAMINATION TYPE: XR chest 1V portable DATE OF EXAM: 10/11/2019 COMPARISON: 11/09/2018 HISTORY: Small bowel obstruction. Heart failure TECHNIQUE: Single frontal view of the chest is obtained. FINDINGS: There is no heart failure nor confluent pneumonic infiltrate. Thoracic aorta is atheromato us. Costophrenic angles are clear. IMPRESSION: No active cardiopulmonary disease. No change.
--- NOTE | 2019-10-11 20:18 | HP ---
HISTORY AND PHYSICAL I am covering for Dr. Liao. DATE OF SERVICE: 10/11/2019 CHIEF COMPLAINTS: Vomiting and abdominal pain. HISTORY OF PRESENT ILLNESS: This 79-year-old woman with a past medical history of multiple medical problems, including CAD, CHF, COPD, GERD, hypertension, hyperlipidemia, history of pneumonia, history of gout, history of back surgery, being followed by Dr. Liao in the outpatient setting, is complaining of abdominal discomfort and pain for the last several days. The patient had some nausea. The patient also had some diarrhea. The pain was diffuse in nature. The patient was taken to [facility] for further evaluation and treatment. Initial labs showed normal CBC and UA was unremarkable. However, CT scan of the abdomen and pelvis was done which showed distal small-bowel obstruction with a zone of transition in the right lower quadrant with some mild ascites. Patient was admitted for evaluation. There is no history of any fever, rigor or chills. No history of headache, loss of consciousness, seizures, chest pain or palpitations at this time. PAST MEDICAL HISTORY: 1. History of CAD. 2. History of chest pain. 3. CHF. 4. COPD. 5. GERD. 6. Hypertension. 7. Hyperlipidemia. 8. History of pneumonia. 9. History of gout. HOME MEDICATIONS: Home medications are reviewed and include: 1. Iron sulfate 325 mg p.o. daily. 2. Vitamin B12 500 mcg p.o. daily. 3. . 4. Norvasc 5 mg p.o. daily. 5. [place]-3 fish oil 2 capsules p.o. daily. 6. Zestril 20 mg p.o. daily. 7. Lasix 20 mg p.o. daily. 8. Imdur 30 mg p.o. daily. ALLERGIES: PENICILLIN. FAMILY HISTORY: No history of heart disease or strokes in the family. SOCIAL HISTORY: No history of smoking. Occasional alcohol intake. REVIEW OF SYSTEMS: ENT: No diminished hearing. No diminished vision. CARDIOVASCULAR SYSTEM: No angina, palpitations. RESPIRATORY SYSTEM: No cough, hemoptysis. GI: As mentioned earlier. : No dysuria or retention. NERVOUS SYSTEM: No numbness, weakness. ALLERGY/IMMUNOLOGY: No asthma, hayfever. MUSCULOSKELETAL: As mentioned earlier. HEMATOLOGY/ONCOLOGY: No history of anemia. ENDOCRINE: No history of diabetes, hypothyroidism. CONSTITUTIONAL: As mentioned earlier. DERMATOLOGY: Negative. RHEUMATOLOGY: Negative. PSYCHIATRY: As mentioned earlier. PHYSICAL EXAMINATION: Patient alert and oriented x3. Pulse is 83, blood pressure 158/84, respiration 18, temperature normal, pulse ox 96% on room air. HEENT: Conjunctivae normal. Oral mucosa moist. NECK: No jugular venous distention. No carotid bruit. No lymph node enlargement. CARDIOVASCULAR SYSTEM: S1, S2 muffled. RESPIRATORY SYSTEM: Breath sounds diminished at the bases. A few scattered rhonchi. No crackles. ABDOMEN: Soft. Obese. Mild diffuse distention present. Mild diffuse tenderness also present. No guarding. No rigidity. Bowel sounds diminished. No ascites. No mass palpable. LEGS: No edema. No swelling. NERVOUS SYSTEM: Higher functions as mentioned earlier. Moves all 4 limbs. No focal motor or sensory deficit. LYMPHATICS: No lymph node palpable in neck, axillae or groin. SKIN: No ulcer, rash, bleeding. JOINTS: No active deforming arthropathy. LABS/IMAGING: Labs at this time show CBC within normal limits and sodium 139, potassium 3.6. CT scan personally reviewed. ASSESSMENT: 1. Abdominal pain, nausea; possible acute gastroenteritis, possible acute small-bowel obstruction with a transition zone. 2. History of coronary artery disease. 3. History of chest pain. 4. History of congestive heart failure, ejection fraction unknown. 5. Chronic obstructive pulmonary disease. 6. Gastroesophageal reflux disease. 7. Hypertension. 8. Hyperlipidemia. 9. History of pneumonia. 10.History of gout. 11.History of back surgery. 12.History of breast biopsy. 13.Obesity with body mass index of 33.2. 14.FULL CODE. RECOMMENDATIONS AND DISCUSSION: In 79-year-old woman who presented with multiple complex medical issues, we will monitor the patient closely, continue the current medications, continue with symptomatic treatment. Will keep the patient n.p.o. except medications. Surgical consultation. Resume the home medications. DVT prophylaxis. Conservative line of management. The exact etiology of the abdominal symptoms is unclear at this time. The CT scan findings point to the possibility of bowel obstruction. Will observe closely and continue to monitor. Prognosis guarded because of multiple complex medical issues. Discussed with the patient and family and granddaughter at the bedside. Further recommendations to follow. Surgical consultation has been requested. A copy of this dictation is being forwarded to Dr. Liao, who is the primary physician. MMODL / IJN: [id number] /
[2019-10-11] MEDS: PANTOPRAZOLE 40 MG/10 ML VIAL IVP SCH (21:18)
[2019-10-11] MEDS: LISINOPRIL 20 MG TAB PO SCH ×2 (21:20→21:26)
[2019-10-11] MEDS: HEPARIN SODIUM,PORCINE 5,000 UNIT/ML 1 ML VIAL SQ SCH (21:20)
[2019-10-11] MEDS: SODIUM CHLORIDE 0.9% 1,000 ML IV SCH (21:21)
[2019-10-11] MEDS: ONDANSETRON 4 MG/2 ML VIAL IVP PRN (22:11)
[2019-10-11] MEDS: HYDROmorphone 0.5 MG/0.5 ML SYRINGE IVP PRN (22:12)
[2019-10-12] MEDS: PANTOPRAZOLE 40 MG/10 ML VIAL IVP SCH ×2 (07:01→22:24)
[2019-10-12] MEDS: amLODIPine 5 MG TAB PO SCH (07:01)
[2019-10-12] MEDS: ISOSORBIDE MONONITRATE ER 30 MG TAB.ER.24H PO SCH (07:01)
[2019-10-12] MEDS: FUROSEMIDE 20 MG TAB PO SCH (07:01)
[2019-10-12] MEDS: HEPARIN SODIUM,PORCINE 5,000 UNIT/ML 1 ML VIAL SQ SCH ×2 (07:02→22:24)
[2019-10-12] MEDS: SODIUM CHLORIDE 0.9% 1,000 ML IV SCH ×2 (07:07→22:37)
[2019-10-12 08:05] LABS: Calcium 9.2 mg/dL (8.4-10.2); Potassium 4.2 mmol/L (3.5-5.1)
[2019-10-12 08:09] LABS: Basophils % (A) 0 %; Eosinophils % (A) 0 %; HCT 39.5 % (34.0-46.0); HGB 13.3 gm/dL (11.4-16.0); Lymphocytes # (A) 1.1 k/uL (1.0-4.8); Lymphocytes % (A) 12 %; MCH 30.5 pg (25.0-35.0); MCHC 33.6 g/dL (31.0-37.0); MCV 90.9 fL (80.0-100.0); Monocytes # (A) 0.6 k/uL (0-1.0); Monocytes % (A) 7 %; Neutrophils # (A) 7.2 k/uL (1.3-7.7); Neutrophils % (A) 80 %; Platelet Count 181 k/uL (150-450); RBC 4.34 m/uL (3.80-5.40); RDW 13.2 % (11.5-15.5)
--- NOTE | 2019-10-12 08:54 | XR ---
EXAMINATION TYPE: XR abdomen 2V DATE OF EXAM: 10/12/2019 CLINICAL HISTORY: Small bowel obstruction TECHNIQUE: Supine and upright views of the abdomen are obtained. COMPARISON: CT abdomen and pelvis from one day earlier FINDINGS: Underlying scoliosis is redemonstrated. Contrast from recent CT filled urinary bladder. Dil ated fluid-filled small bowel loops on CT corresponds possibly of bowel gas in the lower abdomen and pelvis. Gas filled mildly prominent small and large bowel loops upper to mid abdomen with air-fluid l evels in small bowel loops remains present. Lung bases are not included. IMPRESSION: Overall nonspecific bowel gas pattern remains present favoring distal small bowel obstru ction redemonstrated without significant interval change.
--- NOTE | 2019-10-12 10:07 | P.GSCN ---
History of Present Illness Consult date: 10/12/19 Reason for Consult: Small bowel obstruction History of present illness: 79-year-old female comes in the hospital complaining of abdominal pain. This started over the last 2 days. This is associated with episodes of nausea and vomiting. Pain was crampy in nature. Similar episodes per the family less than 2 years ago. Patient underwent laparoscopy followed by laparotomy for bowel obstruction. They believe patient had a bowel resection. Other surgeries include C-sections in the past. She has minimal pain currently. Small amount of emesis last night. No hunger. Still having some mild left-sided abdominal pain. Repeat abdominal x-rays today show some persistent mildly dilated small bowel loops. White blood cell count is normal. Patient is afebrile without tachycardia. Review of Systems The patient denies any acute changes in vision or hearing, no dysphagia or odynophagia, no chest pain or shortness of breath, no dysuria or hematuria, no headache, no runny nose, no rectal bleeding or melena, no unexplained weight loss Past Medical History Past Medical History: Coronary Artery Disease (CAD), Chest Pain / Angina, Heart Failure, COPD, GERD/Reflux, Hyperlipidemia, Hypertension, Pneumonia Additional Past Medical History / Comment(s): GOUT History of Any Multi-Drug Resistant Organisms: None Reported Past Surgical History: Back Surgery Additional Past Surgical History / Comment(s): breast biopsy Past Anesthesia/Blood Transfusion Reactions: No Reported Reaction Past Psychological History: No Psychological Hx Reported Smoking Status: Never smoker Past Alcohol Use History: Occasional Past Drug Use History: None Reported Medications and Allergies Home Medications Medication Instructions Recorded Confirmed Type Isosorbide Mononitrate [Imdur] 30 mg PO DAILY@0900 06/20/14 10/11/19 History Cyanocobalamin [Vitamin B-12] 500 mcg PO DAILY@1200 01/15/18 10/11/19 History Lisinopril [Zestril] 20 mg PO DAILY@2100 01/15/18 10/11/19 History Ferrous Sulfate [Feosol] 325 mg PO DAILY@1200 11/09/18 10/11/19 History amLODIPine [Norvasc] 5 mg PO DAILY@0900 11/09/18 10/11/19 History [place]-3 Fatty Acids/Fish Oil [Fish 2 cap PO DAILY@1800 01/16/19 10/11/19 History Oil 1,000 mg Softgel] Furosemide [Lasix] 20 mg PO DAILY@0900 10/11/19 10/11/19 History Allergies Allergy/AdvReac Type Severity Reaction Status Date / Time Penicillins AdvReac Unknown Verified 10/11/19 17:08 Surgical - Exam Vital Signs Pulse Resp Pulse Ox 67 20 90 L 10/11/19 13:54 10/11/19 13:54 10/11/19 13:54 Physical exam: General: Well-developed, well-nourished HEENT: Normocephalic, sclerae nonicteric Abdomen: Mild left-sided tenderness, nondistended Extremities: No edema Neuro: Alert and oriented Results - Labs 10/12/19 07:09 10/12/19 07:09 Abnormal Lab Results - Last 24 Hours (Table) 10/11/19 10/11/19 10/11/19 Range/Units 14:32 14:32 15:27 Neutrophils # 7.9 H (1.3-7.7) k/uL Lymphocytes # 0.9 L (1.0-4.8) k/uL BUN 20 H (7-17) mg/dL Creatinine (0.52-1.04) mg/dL Glucose 161 H (74-99) mg/dL Amylase 125 H (30-110) U/L Urine Protein 1+ H (Negative) Urine Ketones 1+ H (Negative) 10/12/19 Range/Units 07:09 Neutrophils # (1.3-7.7) k/uL Lymphocytes # (1.0-4.8) k/uL BUN 26 H (7-17) mg/dL Creatinine 1.85 H (0.52-1.04) mg/dL Glucose 116 H (74-99) mg/dL Amylase (30-110) U/L Urine Protein (Negative) Urine Ketones (Negative) Diabetes panel 10/11/19 10/12/19 Range/Units 14:32 07:09 Sodium 139 138 (137-145) mmol/L Potassium 3.6 4.2 (3.5-5.1) mmol/L Chloride 100 105 (98-107) mmol/L Carbon Dioxide 27 25 (22-30) mmol/L BUN 20 H 26 H (7-17) mg/dL Creatinine 1.02 1.85 H (0.52-1.04) mg/dL Glucose 161 H 116 H (74-99) mg/dL Calcium 10.1 9.2 (8.4-10.2) mg/dL AST 32 (14-36) U/L ALT 23 (9-52) U/L Alkaline Phosphatase 72 (38-126) U/L Total Protein 8.2 (6.3-8.2) g/dL Albumin 4.7 (3.5-5.0) g/dL Calcium panel 10/11/19 10/12/19 Range/Units 14:32 07:09 Calcium 10.1 9.2 (8.4-10.2) mg/dL Albumin 4.7 (3.5-5.0) g/dL Pituitary panel 10/11/19 10/12/19 Range/Units 14:32 07:09 Sodium 139 138 (137-145) mmol/L Potassium 3.6 4.2 (3.5-5.1) mmol/L Chloride 100 105 (98-107) mmol/L Carbon Dioxide 27 25 (22-30) mmol/L BUN 20 H 26 H (7-17) mg/dL Creatinine 1.02 1.85 H (0.52-1.04) mg/dL Glucose 161 H 116 H (74-99) mg/dL Calcium 10.1 9.2 (8.4-10.2) mg/dL Adrenal panel 10/11/19 10/12/19 Range/Units 14:32 07:09 Sodium 139 138 (137-145) mmol/L Potassium 3.6 4.2 (3.5-5.1) mmol/L Chloride 100 105 (98-107) mmol/L Carbon Dioxide 27 25 (22-30) mmol/L BUN 20 H 26 H (7-17) mg/dL Creatinine 1.02 1.85 H (0.52-1.04) mg/dL Glucose 161 H 116 H (74-99) mg/dL Calcium 10.1 9.2 (8.4-10.2) mg/dL Total Bilirubin 0.7 (0.2-1.3) mg/dL AST 32 (14-36) U/L ALT 23 (9-52) U/L Alkaline Phosphatase 72 (38-126) U/L Total Protein 8.2 (6.3-8.2) g/dL Albumin 4.7 (3.5-5.0) g/dL Assessment and Plan (1) Small bowel obstruction Narrative/Plan: 79-year-old female with recurrent small bowel obstruction. Keep nothing by mouth for now with the exception of ice chips and popsicles. Will reevaluate tomorrow. Possible small bowel series Monday morning depending on the patient's progress. Increase ambulation. Current Visit: Yes Status: Acute Code(s): K56.609 - UNSP INTESTNL OBST, UNSP TO PARTIAL VERSUS COMPLETE OBST SNOMED Code(s): 031126411
[2019-10-12] MEDS: HYDROmorphone 0.5 MG/0.5 ML SYRINGE IVP PRN ×2 (11:05→18:12)
--- NOTE | 2019-10-12 19:47 | PN ---
PROGRESS NOTE DATE OF SERVICE: 10/12/2019 This 79-year-old woman was admitted with abdominal pain, nausea, possibly had a small bowel obstruction with a transition zone surgery. Dr. Santiago has seen the patient and recommended n.p.o. and re-evaluation at this time. Abdominal x-ray did show some by dilated bowel loops. PAST MEDICAL HISTORY: Reviewed. REVIEW OF SYSTEMS: Cardiovascular system: No angina or palpitations. Respiration as mentioned earlier. GI: As mentioned earlier. : No dysuria or hematuria. CENTRAL NERVOUS SYSTEM: No focal deficits. CURRENT MEDICATIONS: Reviewed and include: 1. Tylenol No.3 q.4h p.r.n. 2. Xanax 0.5 q.6h. 3. Norvasc 5 mg b.i.d. 4. Lasix 20 mg daily. 5. Heparin 5000 units subcu b.i.d. 6. Dilaudid p.r.n. 7. Imdur 30 mg daily. 8. Zestril 20 mg p.o. daily. 9. Narcan. 10.Zofran. 11.Protonix. PHYSICAL EXAM: Patient is alert, oriented x3. Pulse is 80. Blood pressure 168/83, respiration 16, temperature 98.6, pulse ox 98% on room air. HEENT is conjunctivae normal. NECK: No JVD. CARDIOVASCULAR: S1, S2 muffled. RESPIRATORY SYSTEM: Breath sounds diminished at the bases. Scattered rhonchi and crackles. ABDOMEN: Soft, obese, nontender. No mass palpable. LEGS are no edema. No swelling. CENTRAL NERVOUS SYSTEM: No focal deficits. LABORATORY DATA: CBC within normal limits and creatinine is 1.85. ASSESSMENT: 1. Abdominal pain, nausea, possible acute gastroenteritis, possible acute small-bowel obstruction with a transition zone. 2. Elevated creatinine, possibly acute renal failure secondary to contrast nephropathy. 3. History of coronary artery disease. 4. History of chest pain. 5. History of congestive heart failure acute ejection fraction unknown. 6. Chronic obstructive pulmonary disease. 7. Gastroesophageal reflux disease. 8. Hypertension. 9. Hyperlipidemia. 10.History of pneumonia. 11.History of gout. 12.History of back surgery. 13.History of breast biopsy. 14.Obesity with body mass index 33.2. 15.FULL CODE. RECOMMENDATIONS AND DISCUSSION: I recommend to continue current medications, management and symptomatic treatment. The n.p.o. except medications as mentioned earlier. Otherwise creatinine is elevated. I would recommend continue with IV fluids and continue to monitor. Plain x-rays personally reviewed by me. Chest x-ray showed no active changes. Repeat labs are ordered. Closely follow with surgery. Avoid nephrotoxic medications. Continue the proton pump inhibitors. DVT prophylaxis. Further recommendations to follow. See orders for further details. MMODL / IJN: [id number] /
[2019-10-12] MEDS: LISINOPRIL 20 MG TAB PO SCH (22:24)
[2019-10-13] MEDS: ONDANSETRON 4 MG/2 ML VIAL IVP PRN (00:07)
[2019-10-13] MEDS: HYDROmorphone 0.5 MG/0.5 ML SYRINGE IVP PRN ×4 (04:56→17:51)
[2019-10-13] MEDS: SODIUM CHLORIDE 0.9% 1,000 ML IV SCH ×2 (05:03→23:50)
[2019-10-13] MEDS: ISOSORBIDE MONONITRATE ER 30 MG TAB.ER.24H PO SCH (07:04)
[2019-10-13] MEDS: FUROSEMIDE 20 MG TAB PO SCH (07:04)
[2019-10-13] MEDS: PANTOPRAZOLE 40 MG/10 ML VIAL IVP SCH ×2 (07:05→20:19)
[2019-10-13] MEDS: amLODIPine 5 MG TAB PO SCH (07:05)
[2019-10-13] MEDS: HEPARIN SODIUM,PORCINE 5,000 UNIT/ML 1 ML VIAL SQ SCH ×2 (07:05→20:19)
[2019-10-13 07:57] LABS: Basophils % (A) 0 %; Eosinophils % (A) 0 %; HCT 37.4 % (34.0-46.0); HGB 12.2 gm/dL (11.4-16.0); Lymphocytes # (A) 1.4 k/uL (1.0-4.8); Lymphocytes % (A) 15 %; MCH 30.1 pg (25.0-35.0); MCHC 32.5 g/dL (31.0-37.0); MCV 92.8 fL (80.0-100.0); Monocytes # (A) 0.4 k/uL (0-1.0); Monocytes % (A) 5 %; Neutrophils # (A) 7.1 k/uL (1.3-7.7); Neutrophils % (A) 79 %; Platelet Count 183 k/uL (150-450); RBC 4.04 m/uL (3.80-5.40); RDW 13.2 % (11.5-15.5)
[2019-10-13 07:59] LABS: Potassium 4.1 mmol/L (3.5-5.1)
--- NOTE | 2019-10-13 10:26 | P.PN ---
Subjective Progress Note Date: 10/13/19 Principal diagnosis: Small bowel obstruction Patient says she feels better today. Still with mild pain. No vomiting. Some nausea earlier this morning however. White blood cell count 9. Objective - Vital Signs Vital signs: Vital Signs Temp 98.9 F 10/13/19 05:00 Pulse 84 10/13/19 05:00 Resp 17 10/13/19 07:20 BP 173/81 10/13/19 05:00 Pulse Ox 94 L 10/13/19 05:00 Intake & Output 10/12/19 10/13/19 10/13/19 18:59 06:59 18:59 Intake Total 0 Balance 0 Intake: Oral 0 Other: # Voids 1 1 # [place] 0 - Exam Abdomen: Soft, nondistended, minimal tenderness - Labs CBC & Chem 7: 10/13/19 07:22 10/13/19 07:22 Labs: Abnormal Lab Results - Last 24 Hours (Table) 10/13/19 Range/Units 07:22 Chloride 108 H (98-107) mmol/L BUN 27 H (7-17) mg/dL Creatinine 1.52 H (0.52-1.04) mg/dL Glucose 109 H (74-99) mg/dL Assessment and Plan (1) Small bowel obstruction Narrative/Plan: Continue nothing by mouth. Check abdominal x-rays tomorrow. Further decisions based on those films. Current Visit: Yes Status: Acute Code(s): K56.609 - UNSP INTESTNL OBST, UNSP TO PARTIAL VERSUS COMPLETE OBST SNOMED Code(s): 041103809
--- NOTE | 2019-10-13 16:54 | PN ---
PROGRESS NOTE DATE OF SERVICE: 10/13/2019. This 79-year-old woman who was admitted with abdominal pain and nausea, had possible acute gastroenteritis, possible acute small-bowel obstruction also being considered with transition zone. Patient is being seen by surgery with conservative line of management. No chest pain. No palpitations. No fever. EXAM: Alert and oriented x3. Pulse 79, blood pressure 165/69, respiration 20, temperature 98.8, pulse ox 94% on room air. HEENT: Conjunctivae normal. NECK: No JVD. CARDIOVASCULAR: S1, S2 muffled. RESPIRATORY SYSTEM: Breath sounds diminished at the bases. Scattered rhonchi. ABDOMEN soft, nontender. No mass palpable. LEGS are no edema, no swelling. CENTRAL NERVOUS SYSTEM: No focal deficits. LABS: CBC within normal limits. Creatinine is 1.52. ASSESSMENT: 1. Abdominal pain, nausea, possible acute partial small bowel obstruction with transition zone or acute gastroenteritis. 2. Elevated creatinine, possible acute renal failure secondary to contrast nephropathy. 3. History of coronary artery disease. 4. History of chest pain. 5. History of congestive heart failure, ejection fraction unknown. 6. Chronic obstructive pulmonary disease. 7. Gastroesophageal reflux disease. 8. Hypertension. 9. Hyperlipidemia. 10.History of pneumonia. 11.History of gout. 12.History of back surgery. 13.History of breast biopsy. 14.Obesity with body mass index of 33.2. 15.FULL CODE. RECOMMENDATIONS AND DISCUSSION: Recommend to continue current medications, continue with monitoring, management and symptomatic treatment. Otherwise, at this time I recommend monitor the creatinine closely. Creatinine is rather stable at this time. We will repeat creatinine tomorrow and Dr. Liao will follow. MMODL / IJN: [id number] /
[2019-10-13] MEDS: LISINOPRIL 20 MG TAB PO SCH (20:19)
[2019-10-14] MEDS: ONDANSETRON 4 MG/2 ML VIAL IVP PRN ×2 (02:38→08:21)
[2019-10-14] MEDS: amLODIPine 5 MG TAB PO SCH (05:20)
--- NOTE | 2019-10-14 07:45 | P.PN ---
Subjective Progress Note Date: 10/14/19 Principal diagnosis: Small bowel obstruction. This is an 79-year-old black female essentially admitted for partial small bowel obstruction. Still no flatus today. She feels bloating. However, this morning she does have a sense of humor and does not look in acute respiratory distress. Objective - Vital Signs Vital signs: Vital Signs Temp 97.4 F L 10/14/19 05:05 Pulse 81 10/14/19 06:19 Resp 20 10/14/19 05:05 BP 172/79 10/14/19 06:19 Pulse Ox 94 L 10/14/19 05:05 Intake & Output 10/13/19 10/14/19 10/14/19 18:59 06:59 18:59 Other: Voiding Method Toilet Toilet # Voids 1 1 # Emeses 0 0 - Constitutional General appearance: Present: average body habitus - EENT Eyes: Absent: abnormal pupil - Neck Neck: Absent: lymphadenopathy - Respiratory Respiratory: bilateral: CTA - Cardiovascular Rhythm: regular Heart sounds: normal: S1, S2 Abnormal Heart Sounds: Absent: S3 Gallop - Gastrointestinal General gastrointestinal: Present: decreased bowel sounds, distended - Psychiatric Psychiatric: Present: A&O x's 3 - Labs CBC & Chem 7: 10/13/19 07:22 10/13/19 07:22 Labs: Abnormal Lab Results - Last 24 Hours (Table) 10/13/19 Range/Units 07:22 Chloride 108 H (98-107) mmol/L BUN 27 H (7-17) mg/dL Creatinine 1.52 H (0.52-1.04) mg/dL Glucose 109 H (74-99) mg/dL Assessment and Plan (1) Small bowel obstruction Current Visit: Yes Status: Acute Code(s): K56.609 - UNSP INTESTNL OBST, UNSP TO PARTIAL VERSUS COMPLETE OBST SNOMED Code(s): 619281756 (2) Dehydration Current Visit: No Status: Acute Code(s): E86.0 - DEHYDRATION SNOMED Code(s): 44408271 Plan: Continue current regimen of treatment. Abdominal film is pending. Appreciate surgery input. We'll continue to follow. See orders otherwise.
[2019-10-14 08:09] LABS: Calcium 9.1 mg/dL (8.4-10.2); Potassium 3.3 mmol/L (3.5-5.1)
[2019-10-14] MEDS: HEPARIN SODIUM,PORCINE 5,000 UNIT/ML 1 ML VIAL SQ SCH ×2 (08:11→21:32)
[2019-10-14 08:17] LABS: Basophils % (A) 0 %; Eosinophils # (A) 0.1 k/uL (0-0.7); Eosinophils % (A) 1 %; HCT 36.6 % (34.0-46.0); HGB 12.4 gm/dL (11.4-16.0); Lymphocytes % (A) 14 %; MCH 30.6 pg (25.0-35.0); MCHC 33.9 g/dL (31.0-37.0); MCV 90.2 fL (80.0-100.0); Mean Platelet Volume 7.1; Monocytes # (A) 0.5 k/uL (0-1.0); Monocytes % (A) 7 %; Neutrophils # (A) 5.5 k/uL (1.3-7.7); Neutrophils % (A) 78 %; Platelet Count 177 k/uL (150-450); RBC 4.06 m/uL (3.80-5.40); RDW 13.1 % (11.5-15.5)
[2019-10-14] MEDS: PANTOPRAZOLE 40 MG/10 ML VIAL IVP SCH ×2 (08:20→21:32)
--- NOTE | 2019-10-14 08:20 | XR ---
EXAMINATION TYPE: XR abdomen 2V DATE OF EXAM: 10/14/2019 COMPARISON: 10/12/2019 HISTORY: Bowel obstruction TECHNIQUE: One view abdominal series FINDINGS: The osseous structures are intact. The bowel gas pattern is nonspecific. Numerous dilated small blossom l loops with air-fluid levels in a pattern highly suggestive of small bowel obstruction. Report dunne d to the patient's nurse. Scoliosis and degenerative changes of the spine. Arthropathy of the hips. O steitis pubis condensans noted. IMPRESSION: 1. Interval increase in dilation of small bowel loops in a pattern highly suggestive of small bowel o bstruction.
[2019-10-14] MEDS: FUROSEMIDE 20 MG TAB PO SCH (08:21)
[2019-10-14] MEDS: ISOSORBIDE MONONITRATE ER 30 MG TAB.ER.24H PO SCH (08:21)
[2019-10-14] MEDS ORDERED: Potassium Replacement Protocol 1 EACH MISC MISCELLANE PRN (08:35)
[2019-10-14] MEDS: POTASSIUM CHLORIDE 10 MEQ in WATER FOR INJECTION 1 100ML.BAG IVPB SCH ×5 (09:45→21:52)
[2019-10-14] MEDS ORDERED: IV FLUID CONTINUATION 1,000 ML IV ONE (12:13)
[2019-10-14] MEDS: SODIUM CHLORIDE 0.9% 1,000 ML IV SCH ×2 (13:06→21:53)
[2019-10-14] MEDS ORDERED: fentaNYL (PF) 50 MCG/ML 2 ML AMP IVP ONE ×2 (13:27→13:37)
[2019-10-14] MEDS ORDERED: MIDAZOLAM 2 MG/2 ML VIAL IVP ONE (13:27)
[2019-10-14] MEDS ORDERED: NALOXONE 0.4 MG/ML 1 ML VIAL IV PRN (13:55)
[2019-10-14] MEDS ORDERED: ROPIVACAINE EPIDURAL PRN (13:55)
[2019-10-14] MEDS ORDERED: HYDROMORPHONE EPIDURAL PRN (13:55)
[2019-10-14] MEDS ORDERED: SODIUM CHLORIDE 0.9% EPIDURAL PRN (13:55)
[2019-10-14] MEDS ORDERED: ONDANSETRON 4 MG/2 ML VIAL IVP ONE (14:03)
[2019-10-14] MEDS ORDERED: HEPARIN SODIUM,PORCINE 5,000 UNIT/ML 1 ML VIAL SQ ONE (14:03)
[2019-10-14] MEDS ORDERED: CLINDAMYCIN 600 MG in DEXTROSE 5% IN WATER 50 ML IVPB STA ×2 (14:08)
--- NOTE | 2019-10-14 16:04 | P.PN ---
Progress Note - Text Progress Note Date: 10/14/19 The patient has complaints of abdominal pain. Her recent x-rays show persistent small bowel obstruction. Patient undergo exploratory laparotomy today.
[2019-10-14] MEDS ORDERED: SUCCINYLCHOLINE CHLORIDE 100 MG/5 ML SYR IV ONE (16:06)
[2019-10-14] MEDS ORDERED: fentaNYL (PF) 50 MCG/ML 2 ML AMP ONE (16:06)
[2019-10-14] MEDS ORDERED: ROCURONIUM BROMIDE 10 MG/ML 10 ML VIAL IV ONE (16:06)
[2019-10-14] MEDS ORDERED: PHENYLEPHRINE-0.9% NACL SYG 1 MG/10 ML SYRINGE ONE (16:06)
[2019-10-14] MEDS ORDERED: NEOSTIGMINE 1 MG/ML 10 ML VIAL ONE (16:06)
[2019-10-14] MEDS ORDERED: GLYCOPYRROLATE 0.2 MG/ML 2 ML VIAL ONE (16:06)
[2019-10-14] MEDS ORDERED: PROPOFOL 10 MG/ML 20 ML VIAL IV ONE (16:06)
[2019-10-14] MEDS ORDERED: LACTATED RINGERS 1,000 ML IV ONE (16:52)
--- NOTE | 2019-10-14 16:56 | P.OP ---
Date of Procedure: 10/14/19 Preoperative Diagnosis: Small bowel obstruction Postoperative Diagnosis: Small bowel obstruction secondary to internal hernia Procedure(s) Performed: Exploratory laparotomy Lysis of adhesions Anesthesia: LUCIANO Surgeon: Sterling Dumont Estimated Blood Loss (ml): 10 Pathology: none sent Condition: stable Disposition: PACU Description of Procedure: The patient's placed on the operative table in supine position. She received general anesthesia. Her abdomen was prepped and draped in usual sterile fashion. The abdomen was entered through a midline. There was some serosanguineous ascites. The small bowel was grossly dilated. The Bookwalter tract with wound. Small bowel was run and in the pelvis there was a closed loop obstruction secondary to internal hernia. The adhesive band was lysed. The transition point was seen. Small bowel was then run from the ileocecal valve to the ligament Treitz. No other structure was seen. The small bowel appeared to be viable. There is no evidence of any significant ischemia. At this point the abdomen was irrigated there is no bleeding seen. The fascia was closed with looped #1 PDS suture. 2 sutures used to close the fascia. Skin was closed og. Patient top she will was sent to recovery room stable condition.
[2019-10-14] MEDS ORDERED: HYDROmorphone 1 MG/ML 1 ML SYRINGE IM PRN (16:57)
[2019-10-14] MEDS: LISINOPRIL 20 MG TAB PO SCH (21:32)
--- NOTE | 2019-10-15 07:58 | P.PN ---
Progress Note - Text 10/15 650am 79-year-old female status post exploratory lap, dysemia. Patient has an epidural catheter for postop pain control and was hemodynamically unstable last night epidural had to be switched off, patient required fluid boluses. Patient has seen this morning and evaluated again, epidural solution is running at 2 mL an hour with a VAS of 0 and she is hemodynamically stable. Plan to continue epidural infusion
[2019-10-15] MEDS: HEPARIN SODIUM,PORCINE 5,000 UNIT/ML 1 ML VIAL SQ SCH ×2 (08:32→22:07)
[2019-10-15] MEDS: PANTOPRAZOLE 40 MG/10 ML VIAL IVP SCH ×2 (08:32→22:07)
[2019-10-15] MEDS: ONDANSETRON 4 MG/2 ML VIAL IVP PRN (08:32)
[2019-10-15] MEDS: FUROSEMIDE 20 MG TAB PO SCH (08:33)
[2019-10-15] MEDS: amLODIPine 5 MG TAB PO SCH (08:33)
[2019-10-15] MEDS: ISOSORBIDE MONONITRATE ER 30 MG TAB.ER.24H PO SCH (08:33)
[2019-10-15] MEDS ORDERED: BENZOCAINE SPRAY 1 CAN MUCOUS MEM PRN (14:56)
--- NOTE | 2019-10-15 15:51 | P.PN ---
Subjective Progress Note Date: 10/15/19 CHIEF COMPLAINT: Abdominal pain HISTORY OF PRESENT ILLNESS: Patient is status post exploratory laparotomy and lysis of adhesions secondary to internal hernia. Postop day #1. Patient examined at the bedside. She reports her pain is tolerable. Epidural infusing at 2 mL an hour. NG tube with minimal output. Patient denies passing flatus. PHYSICAL EXAM: VITAL SIGNS: Reviewed. GENERAL: Well-developed in no acute distress. HEENT: No sclera icterus. Extraocular movements grossly intact. Moist buccal mucosa. Head is atraumatic, normocephalic. ABDOMEN: Soft. Nondistended. Appropriate surgical tenderness. NEUROLOGIC: Alert and oriented. Cranial nerves II through XII grossly intact. ASSESSMENT: 1. Small bowel obstruction secondary to internal hernia, status post exploratory laparotomy with lysis of adhesions PLAN: Pain control. Continue epidural Continue Turpin catheter Discontinue NG tube Patient may have ice chips and popsicles. Await bowel function Incentive spirometer Activity as tolerated Nurse practitioner note has been reviewed by physician. Signing provider agrees with the documented findings, assessment, and plan of care. Objective - Vital Signs Vital signs: Vital Signs Temp 99.0 F 10/15/19 14:16 Pulse 81 10/15/19 14:16 Resp 16 10/15/19 15:16 BP 153/79 10/15/19 14:16 Pulse Ox 99 10/15/19 14:16 Intake & Output 10/14/19 10/15/19 10/15/19 18:59 06:59 18:59 Intake Total 1354 Output Total 70 225 Balance 1284 -225 Weight 77.111 kg Intake: IV 1354 Output: Urine 50 225 Estimated Blood Loss 20 Other: Voiding Method Toilet Indwelling Catheter Indwelling Catheter # Voids 2 # Bowel Movements 0 # Emeses 0 - Labs CBC & Chem 7: 10/14/19 07:37 10/14/19 07:37
[2019-10-15] MEDS: SODIUM CHLORIDE 0.9% 1,000 ML IV SCH (16:10)
--- NOTE | 2019-10-15 21:57 | P.PN ---
Subjective Principal diagnosis: Small bowel obstruction. This is an 79-year-old black female essentially admitted for partial small bowel obstruction. Status post laparotomy with surgical repair. The patient feels much better this evening. Objective - Vital Signs Vital signs: Vital Signs Temp 99.0 F 10/15/19 20:34 Pulse 97 10/15/19 20:34 Resp 14 10/15/19 20:34 BP 160/69 10/15/19 20:34 Pulse Ox 92 L 10/15/19 20:34 Intake & Output 10/15/19 10/15/19 10/16/19 06:59 18:59 06:59 Output Total 225 300 250 Balance -225 -300 -250 Weight 77.111 kg Output: Urine 225 300 250 Other: Voiding Method Indwelling Catheter Indwelling Catheter # Bowel Movements 0 - Constitutional General appearance: Present: no acute distress - EENT Eyes: Absent: abnormal pupil - Neck Neck: Absent: lymphadenopathy - Respiratory Respiratory: bilateral: CTA - Cardiovascular Rhythm: regular Heart sounds: normal: S1, S2 Abnormal Heart Sounds: Absent: S3 Gallop - Gastrointestinal General gastrointestinal: Present: soft. Absent: tenderness - Psychiatric Psychiatric: Present: A&O x's 3, appropriate affect - Labs CBC & Chem 7: 10/14/19 07:37 10/14/19 07:37 Assessment and Plan (1) Small bowel obstruction Current Visit: Yes Status: Acute Code(s): K56.609 - UNSP INTESTNL OBST, UNSP TO PARTIAL VERSUS COMPLETE OBST SNOMED Code(s): 631403542 (2) Dehydration Current Visit: No Status: Acute Code(s): E86.0 - DEHYDRATION SNOMED Code(s): 28715454 Plan: Continue current regimen of treatment. Status post Exploratory laparotomy with surgical repair. Check CBC and CMP in a.m. Time with Patient: Less than 30
[2019-10-15] MEDS: LISINOPRIL 20 MG TAB PO SCH (22:07)
[2019-10-16] MEDS: SODIUM CHLORIDE 0.9% 1,000 ML IV SCH ×2 (06:15→16:40)
[2019-10-16] MEDS: amLODIPine 5 MG TAB PO SCH (06:22)
[2019-10-16] MEDS: PANTOPRAZOLE 40 MG/10 ML VIAL IVP SCH ×2 (07:30→21:17)
[2019-10-16] MEDS: HEPARIN SODIUM,PORCINE 5,000 UNIT/ML 1 ML VIAL SQ SCH ×2 (07:30→21:17)
[2019-10-16] MEDS: FUROSEMIDE 20 MG TAB PO SCH (07:30)
[2019-10-16] MEDS: ISOSORBIDE MONONITRATE ER 30 MG TAB.ER.24H PO SCH (07:30)
--- NOTE | 2019-10-16 08:54 | P.PN ---
Subjective Principal diagnosis: Small bowel obstruction. Status post expiratory laparotomy with repair. This is an 79-year-old black female essentially admitted for partial small bowel obstruction. Status post laparotomy with surgical repair. The patient feels much better this morning and would like to eat. Postop day #2 Objective - Vital Signs Vital signs: Vital Signs Temp 98.2 F 10/16/19 05:59 Pulse 96 10/16/19 05:59 Resp 18 10/16/19 05:59 BP 170/90 10/16/19 07:45 Pulse Ox 94 L 10/16/19 05:59 Intake & Output 10/15/19 10/16/19 10/16/19 18:59 06:59 18:59 Intake Total 200 Output Total 300 600 Balance -300 -400 Weight 77.111 kg Intake: Oral 200 Output: Urine 300 600 Other: Voiding Method Indwelling Catheter Indwelling Catheter # Voids 0 # Bowel Movements 0 - Constitutional General appearance: Present: average body habitus - EENT Eyes: Absent: abnormal pupil - Neck Neck: Absent: lymphadenopathy - Respiratory Respiratory: bilateral: CTA - Cardiovascular Rhythm: regular Heart sounds: normal: S1, S2 Abnormal Heart Sounds: Absent: S3 Gallop - Gastrointestinal General gastrointestinal: Present: decreased bowel sounds - Integumentary Integumentary: Present: normal - Labs CBC & Chem 7: 10/14/19 07:37 10/14/19 07:37 Assessment and Plan (1) Small bowel obstruction Current Visit: Yes Status: Acute Code(s): K56.609 - UNSP INTESTNL OBST, UNSP TO PARTIAL VERSUS COMPLETE OBST SNOMED Code(s): 353491244 (2) Dehydration Current Visit: No Status: Acute Code(s): E86.0 - DEHYDRATION SNOMED Code(s): 47511687 Plan: Continue current regimen of treatment. Status post Exploratory laparotomy with surgical repair. Place on appropriate potassium protocol. Anticipate discharge in next 24-48 hours.
--- NOTE | 2019-10-16 09:30 | P.PN ---
Progress Note - Text 10/16 615am 79-year-old female status post left hemicolectomy by Dr. oneil. Patient has an epidural catheter for postop pain control with the solution running at 2 mL an hour with a VAS of 1. No motor or sensory deficits. Plan to continue epidural infusion
--- NOTE | 2019-10-16 11:02 | P.PN ---
Subjective Progress Note Date: 10/16/19 CHIEF COMPLAINT: Abdominal pain HISTORY OF PRESENT ILLNESS: Patient is status post exploratory laparotomy and lysis of adhesions secondary to internal hernia. Postop day #2. Patient examined at the bedside. She reports her pain is tolerable. Epidural infusing at 2 mL an hour. She is passing flatus. Denies BM. Vital signs are stable. She is afebrile. PHYSICAL EXAM: VITAL SIGNS: Reviewed. GENERAL: Well-developed in no acute distress. HEENT: No sclera icterus. Extraocular movements grossly intact. Moist buccal mucosa. Head is atraumatic, normocephalic. ABDOMEN: Soft. Nondistended. Appropriate surgical tenderness. Abdominal binder noted. NEUROLOGIC: Alert and oriented. Cranial nerves II through XII grossly intact. ASSESSMENT: 1. Small bowel obstruction secondary to internal hernia, status post ex ploratory laparotomy with lysis of adhesions PLAN: Pain control. Continue epidural. Discontinue tomorrow. Continue Turpin catheter while epidural is infusing Advance diet to full liquid Incentive spirometer Activity as tolerated Nurse practitioner note has been reviewed by physician. Signing provider agrees with the documented findings, assessment, and plan of care. Objective - Vital Signs Vital signs: Vital Signs Temp 98.2 F 10/16/19 05:59 Pulse 96 10/16/19 05:59 Resp 18 10/16/19 05:59 BP 157/85 10/16/19 08:53 Pulse Ox 94 L 10/16/19 05:59 Intake & Output 10/15/19 10/16/19 10/16/19 18:59 06:59 18:59 Intake Total 200 Output Total 300 600 Balance -300 -400 Weight 77.111 kg Intake: Oral 200 Output: Urine 300 600 Other: Voiding Method Indwelling Catheter Indwelling Catheter Indwelling Catheter # Voids 0 # Bowel Movements 0 - Labs CBC & Chem 7: 10/14/19 07:37 10/14/19 07:37
[2019-10-16 11:34] LABS: HCT 35.8 % (34.0-46.0); HGB 11.8 gm/dL (11.4-16.0); MCH 30.7 pg (25.0-35.0); MCV 93.1 fL (80.0-100.0); Mean Platelet Volume 7.2; Platelet Count 184 k/uL (150-450); RBC 3.84 m/uL (3.80-5.40); RDW 13.1 % (11.5-15.5); WBC 5.7 k/uL (3.8-10.6)
[2019-10-16 11:58] LABS: Calcium 9.1 mg/dL (8.4-10.2); Potassium 3.3 mmol/L (3.5-5.1)
[2019-10-16] MEDS ORDERED: Potassium Replacement Protocol 1 EACH MISC MISCELLANE PRN (12:08)
[2019-10-16] MEDS: POTASSIUM CHLORIDE ER 20 MEQ TAB.ER PO SCH ×2 (13:23→14:38)
[2019-10-16] MEDS: ONDANSETRON 4 MG/2 ML VIAL IVP PRN (17:14)
[2019-10-16] MEDS: LISINOPRIL 20 MG TAB PO SCH (21:18)
[2019-10-17] MEDS: ONDANSETRON 4 MG/2 ML VIAL IVP PRN (01:51)
--- NOTE | 2019-10-17 05:47 | P.PN ---
Progress Note - Text Progress Note Date: 10/17/19 79 yo female s/p Ex. Lap. and hemicolectomy. POD#3. Adequate pain control, VAS=2/10. No motor or sensory deficits. Epidural catheter insertion site clean. Patient is complaining of nausea and she vomited brownish gastric content after midnight per her RN. I asked the RN to contact the surgeon and make her aware. We will continue the epidural at same rate.
[2019-10-17] MEDS: SODIUM CHLORIDE 0.9% 1,000 ML IV SCH ×2 (07:05→20:35)
[2019-10-17] MEDS: amLODIPine 5 MG TAB PO SCH (08:00)
[2019-10-17] MEDS: FUROSEMIDE 20 MG TAB PO SCH (08:00)
[2019-10-17] MEDS: ISOSORBIDE MONONITRATE ER 30 MG TAB.ER.24H PO SCH (08:01)
[2019-10-17] MEDS ORDERED: hydrALAZINE HCL 20 MG/ML 1 ML VIAL IVP PRN (08:03)
[2019-10-17] MEDS: HEPARIN SODIUM,PORCINE 5,000 UNIT/ML 1 ML VIAL SQ SCH ×2 (08:08→21:24)
[2019-10-17] MEDS: PANTOPRAZOLE 40 MG/10 ML VIAL IVP SCH ×2 (08:08→21:24)
--- NOTE | 2019-10-17 08:15 | P.PN ---
Subjective Principal diagnosis: Small bowel obstruction. Status post expiratory laparotomy with repair. Postop day #3 This is an 79-year-old black female essentially admitted for partial small bowel obstruction. Status post laparotomy with surgical repair. The patient feels much better this morning and would like to eat. Postop day 3. Blood pressure is slightly elevated. We will give Apresoline until she is not NPo. Otherwise small BM this morning. Pain is tolerated Objective - Vital Signs Vital signs: Vital Signs Temp 98.5 F 10/17/19 05:00 Pulse 96 10/17/19 05:00 Resp 20 10/17/19 05:00 BP 178/92 10/17/19 05:00 Pulse Ox 95 10/17/19 05:00 Intake & Output 10/16/19 10/17/19 10/17/19 18:59 06:59 18:59 Intake Total 200 Output Total 600 1500 Balance -600 -1300 Intake: Oral 200 Output: Urine 600 600 Emesis 900 Other: Voiding Method Indwelling Catheter Indwelling Catheter # Emeses 1 - Constitutional General appearance: Present: no acute distress - EENT Eyes: Absent: abnormal pupil - Neck Neck: Absent: lymphadenopathy - Respiratory Respiratory: bilateral: CTA - Cardiovascular Rhythm: regular Heart sounds: normal: S1, S2 Abnormal Heart Sounds: Absent: S3 Gallop - Gastrointestinal General gastrointestinal: Present: soft. Absent: tenderness - Psychiatric Psychiatric: Present: A&O x's 3 - Labs CBC & Chem 7: 10/16/19 10:53 10/16/19 19:22 Labs: Abnormal Lab Results - Last 24 Hours (Table) 10/16/19 Range/Units 10:53 Potassium 3.3 L (3.5-5.1) mmol/L Chloride 110 H (98-107) mmol/L BUN 24 H (7-17) mg/dL Creatinine 1.37 H (0.52-1.04) mg/dL Glucose 104 H (74-99) mg/dL Assessment and Plan (1) Small bowel obstruction Current Visit: Yes Status: Acute Code(s): K56.609 - UNSP INTESTNL OBST, UNSP TO PARTIAL VERSUS COMPLETE OBST SNOMED Code(s): 830929294 (2) Dehydration Current Visit: No Status: Acute Code(s): E86.0 - DEHYDRATION SNOMED Code(s): 11029876 Plan: Continue current regimen of treatment. Status post Exploratory laparotomy with surgical repair. Place on appropriate potassium protocol. Anticipate discharge in next 24-48 hours. Otherwise, we will give Apresoline today until nothing by mouth is relieved.
--- NOTE | 2019-10-17 09:22 | XR ---
EXAMINATION TYPE: XR abdomen 2V DATE OF EXAM: 10/17/2019 9:07 AM CLINICAL HISTORY: Ileus and abdominal pain. TECHNIQUE: Supine and upright images of the abdomen. COMPARISON: 10/14/2019 FINDINGS:. There remain multiple loops of dilated small bowel. Small bowel is dilated up to 4.7 cm. L oops are predominantly centralized. New midline surgical og are seen. Differential air-fluid lev els remain. S-shaped scoliosis of the thoracolumbar spine. No gross evidence of pneumoperitoneum on t he upright view. Lung bases are well aerated. IMPRESSION: There is a numerous loops of dilated small bowel despite apparent interval surgical inter vention. Severe ileus or continued obstruction or possible.
[2019-10-17] MEDS ORDERED: HYDROcodone/APAP 5-325MG 1 EACH TAB PO PRN (10:21)
[2019-10-17] MEDS: METOCLOPRAMIDE 5 MG/ML 2 ML VIAL IVP SCH ×3 (12:06→23:58)
--- NOTE | 2019-10-17 15:28 | P.PN ---
Subjective Progress Note Date: 10/17/19 CHIEF COMPLAINT: Abdominal pain HISTORY OF PRESENT ILLNESS: Patient is status post exploratory laparotomy and lysis of adhesions secondary to internal hernia. Postop day #3. Patient examined at the bedside. She reports her pain is tolerable. Epidural infusing at 2 mL an hour. Patient had nausea and a few episodes of emesis overnight. She was made nothing by mouth. She reports passing flatus. Nursing reports 2 small bowel movements. Abdominal x-ray performed this morning reveals numerous loops of dilated small bowel. Small bowel dilated up to 4.7 cm. PHYSICAL EXAM: VITAL SIGNS: Reviewed. GENERAL: Well-developed in no acute distress. HEENT: No sclera icterus. Extraocular movements grossly intact. Moist buccal mucosa. Head is atraumatic, normocephalic. ABDOMEN: Soft. Nondistended. Appropriate surgical tenderness. Abdominal binder noted. NEUROLOGIC: Alert and oriented. Cranial nerves II through XII grossly intact. ASSESSMENT: 1. Small bowel obstruction secondary to internal hernia, status post exploratory laparotomy with lysis of adhesions 2. Postoperative ileus, an expected outcome of surgery PLAN: Discontinue epidural catheter. Pain control with IV Dilaudid and [place] as needed Discontinue Turpin catheter Begin ice chips and popsicles only. Begin Reglan 10 mg IV every 6 hours Repeat abdominal x-ray tomorrow morning Incentive spirometer Activity as tolerated Nurse practitioner note has been reviewed by physician. Signing provider agrees with the documented findings, assessment, and plan of care. Objective - Vital Signs Vital signs: Vital Signs Temp 97.7 F 10/17/19 12:40 Pulse 100 10/17/19 12:40 Resp 18 10/17/19 12:40 BP 173/91 10/17/19 12:40 Pulse Ox 97 10/17/19 12:40 Intake & Output 10/16/19 10/17/19 10/17/19 18:59 06:59 18:59 Intake Total 200 Output Total 600 1500 Balance -600 -1300 Intake: Oral 200 Output: Urine 600 600 Emesis 900 Other: Voiding Method Indwelling Catheter Indwelling Catheter Indwelling Catheter # Voids 0 # Bowel Movements 1 # Emeses 1 - Labs CBC & Chem 7: 10/16/19 10:53 10/16/19 19:22
[2019-10-17] MEDS: LISINOPRIL 20 MG TAB PO SCH (21:26)
[2019-10-18] MEDS: METOCLOPRAMIDE 5 MG/ML 2 ML VIAL IVP SCH ×4 (05:18→22:27)
--- NOTE | 2019-10-18 07:47 | P.PN ---
Subjective Principal diagnosis: Small bowel obstruction. Status post expiratory laparotomy with repair. Postop day #4 This is an 79-year-old black female essentially admitted for partial small bowel obstruction. Status post laparotomy with surgical repair. The patient feels much better this morning and would like to eat. Postop day 4. Appetite is somewhat poor Objective - Vital Signs Vital signs: Vital Signs Temp 98.1 F 10/18/19 06:00 Pulse 96 10/18/19 06:00 Resp 20 10/18/19 06:00 BP 145/77 10/18/19 06:00 Pulse Ox 97 10/18/19 06:00 Intake & Output 10/17/19 10/18/19 10/18/19 18:59 06:59 18:59 Intake Total 0 Output Total 15 Balance -15 0 Intake: Oral 0 Output: Post Void Residual 15 Other: Voiding Method Bedside Commode # Voids 1 2 # Bowel Movements 1 3 - Constitutional General appearance: Present: no acute distress - EENT Eyes: Absent: abnormal pupil - Neck Neck: Absent: lymphadenopathy - Respiratory Respiratory: bilateral: CTA - Cardiovascular Rhythm: regular Heart sounds: normal: S1, S2 Abnormal Heart Sounds: Absent: S3 Gallop - Gastrointestinal General gastrointestinal: Present: soft. Absent: tenderness - Musculoskeletal Musculoskeletal: Present: gait normal - Labs CBC & Chem 7: 10/16/19 10:53 10/16/19 19:22 Assessment and Plan (1) Small bowel obstruction Current Visit: Yes Status: Acute Code(s): K56.609 - UNSP INTESTNL OBST, UNSP TO PARTIAL VERSUS COMPLETE OBST SNOMED Code(s): 186345378 (2) Dehydration Current Visit: No Status: Acute Code(s): E86.0 - DEHYDRATION SNOMED Code(s): 76858144 Plan: Continue current regimen of treatment. Status post Exploratory laparotomy with surgical repair. Place on appropriate potassium protocol. Anticipate discharge in next 24-48 hours. Advance diet per surgery.
[2019-10-18] MEDS: PANTOPRAZOLE 40 MG/10 ML VIAL IVP SCH ×2 (08:33→22:27)
[2019-10-18] MEDS: HEPARIN SODIUM,PORCINE 5,000 UNIT/ML 1 ML VIAL SQ SCH ×2 (08:33→22:27)
[2019-10-18] MEDS: FUROSEMIDE 20 MG TAB PO SCH (08:33)
[2019-10-18] MEDS: ISOSORBIDE MONONITRATE ER 30 MG TAB.ER.24H PO SCH (08:33)
[2019-10-18] MEDS: amLODIPine 5 MG TAB PO SCH (08:33)
[2019-10-18] MEDS: SODIUM CHLORIDE 0.9% 1,000 ML IV SCH (08:34)
[2019-10-18 09:24] LABS: HCT 35.6 % (34.0-46.0); HGB 11.7 gm/dL (11.4-16.0); MCH 30.3 pg (25.0-35.0); MCHC 32.8 g/dL (31.0-37.0); MCV 92.5 fL (80.0-100.0); Mean Platelet Volume 9.2; Platelet Count 212 k/uL (150-450); RBC 3.85 m/uL (3.80-5.40); RDW 13.3 % (11.5-15.5); WBC 6.5 k/uL (3.8-10.6)
[2019-10-18 09:37] LABS: Albumin 3.4 g/dL (3.5-5.0); Calcium 9.3 mg/dL (8.4-10.2); Potassium 3.1 mmol/L (3.5-5.1); Total Bilirubin 0.7 mg/dL (0.2-1.3); Total Protein 6.4 g/dL (6.3-8.2)
--- NOTE | 2019-10-18 10:23 | XR ---
EXAMINATION TYPE: XR abdomen 2V DATE OF EXAM: 10/18/2019 COMPARISON: 10/17/2019 HISTORY: pain TECHNIQUE: One view abdominal series FINDINGS: The osseous structures are intact. The bowel gas pattern is nonspecific. Numerous dilated small blossom l loops. Curvature the spine noted. Arthropathy of the hips. Osteitis pubis condensans noted. Calcifi cations the pelvis likely vascular. IMPRESSION: 1. Nonspecific abdomen. Persistent dilated small bowel loops correlates for severe ileus versus blossom l obstruction. There may be slight reduction in the degree of distention of the small bowel loops.
--- NOTE | 2019-10-18 11:59 | P.PN ---
Subjective Progress Note Date: 10/18/19 CHIEF COMPLAINT: Abdominal pain HISTORY OF PRESENT ILLNESS: Patient is status post exploratory laparotomy and lysis of adhesions secondary to internal hernia. Postop day #4. Patient examined at the bedside. She reports her pain is tolerable. Patient denies fu rther episodes of nausea and vomiting. Passing flatus. Abdominal x-ray reveals persistent dilated small bowel loops. Correlate for severe ileus or bowel obstruction. There may be slight reduction in degree of distention of the small bowel loops. PHYSICAL EXAM: VITAL SIGNS: Reviewed. GENERAL: Well-developed in no acute distress. HEENT: No sclera icterus. Extraocular movements grossly intact. Moist buccal mucosa. Head is atraumatic, normocephalic. ABDOMEN: Soft. Nondistended. Appropriate surgical tenderness. Abdominal binder noted. NEUROLOGIC: Alert and oriented. Cranial nerves II through XII grossly intact. ASSESSMENT: 1. Small bowel obstruction secondary to internal hernia, status post exploratory laparotomy with lysis of adhesions 2. Postoperative ileus, an expected outcome of surgery PLAN: NPO. Repeat abdominal xray tomorrow Continue Reglan 10 mg IV every 6 hours Repeat abdominal x-ray tomorrow morning Incentive spirometer Activity as tolerated Nurse practitioner note has been reviewed by physician. Signing provider agrees with the documented findings, assessment, and plan of care. Objective - Vital Signs Vital signs: Vital Signs Temp 98.1 F 10/18/19 06:00 Pulse 96 10/18/19 06:00 Resp 20 10/18/19 06:00 BP 145/77 10/18/19 06:00 Pulse Ox 97 10/18/19 06:00 Intake & Output 10/17/19 10/18/19 10/18/19 18:59 06:59 18:59 Intake Total 0 Output Total 15 Balance -15 0 Intake: Oral 0 Output: Post Void Residual 15 Other: Voiding Method Bedside Commode Bedside Commode # Voids 1 2 # Bowel Movements 1 3 3 - Labs CBC & Chem 7: 10/18/19 08:33 10/18/19 08:33 Labs: Abnormal Lab Results - Last 24 Hours (Table) 10/18/19 Range/Units 08:33 Sodium 148 H (137-145) mmol/L Potassium 3.1 L (3.5-5.1) mmol/L Chloride 111 H (98-107) mmol/L BUN 22 H (7-17) mg/dL Creatinine 1.16 H (0.52-1.04) mg/dL Albumin 3.4 L (3.5-5.0) g/dL
[2019-10-18] MEDS: LISINOPRIL 20 MG TAB PO SCH (22:27)
[2019-10-19] MEDS: SODIUM CHLORIDE 0.9% 1,000 ML IV SCH ×2 (01:30→11:59)
[2019-10-19] MEDS: METOCLOPRAMIDE 5 MG/ML 2 ML VIAL IVP SCH ×4 (05:23→23:37)
--- NOTE | 2019-10-19 09:04 | XR ---
EXAMINATION TYPE: XR abdomen 2V , 2 VIEWS DATE OF EXAM ORDERED: 10/19/2019 HISTORY: ileus, compare small bowel dilation. COMPARISON: Previous study dated 10/18/2019. FINDINGS: The lung bases are clear. Within the abdomen there are nondistended loops of large and small bowel throughout the abdomen. Thes e are less prominent than yesterday's examination. There are phleboliths within the pelvis. There are metallic skin sutures projecting over the lower abdomen. There is a moderate rotoscoliosis involving the lumbar spine. IMPRESSION: NONSPECIFIC ABDOMINAL PICTURE WHICH MAY HAVE IMPROVED SLIGHTLY FROM THE PREVIOUS STUDY.
[2019-10-19] MEDS: PANTOPRAZOLE 40 MG/10 ML VIAL IVP SCH ×2 (10:17→21:02)
[2019-10-19] MEDS: HEPARIN SODIUM,PORCINE 5,000 UNIT/ML 1 ML VIAL SQ SCH ×2 (10:17→21:02)
[2019-10-19] MEDS: ISOSORBIDE MONONITRATE ER 30 MG TAB.ER.24H PO SCH (10:18)
[2019-10-19] MEDS: amLODIPine 5 MG TAB PO SCH (10:18)
[2019-10-19] MEDS: FUROSEMIDE 20 MG TAB PO SCH (10:18)
[2019-10-19] MEDS ORDERED: POTASSIUM CHLORIDE ER 10 MEQ TAB.ER.PRT PO STA (10:26)
[2019-10-19] MEDS ORDERED: amLODIPine 5 MG TAB PO STA (11:15)
--- NOTE | 2019-10-19 11:24 | P.PN ---
Subjective Progress Note Date: 10/19/19 CHIEF COMPLAINT: Ileus HISTORY OF PRESENT ILLNESS: The patient is a 79-year-old female status post l aparotomy for internal hernia. This morning she is passing flatus and having bowel movement. Abdominal x-rays has been obtained. She reports abdominal pain has improved. ROS: No reports of nausea and vomiting. No fevers or chills. No new chest pain. No productive sputum PHYSICAL EXAM: VITAL SIGNS: Reviewed CONSTITUTIONAL: Well developed and in no acute distress. EYES: Conjuctivae without sclera icterus. Extraocular movements grossly intact. HEAD, EARS, NOSE, THROAT: Moist buccal mucosa. Head is atraumatic, normocephalic. Hears conversational speech. No nasal drainage. RESPIRATORY: Non-labored respirations and equal bilateral excursions. CARDIOVASCULAR: Palpable 2+ radial pulses. Regular rate. Regular rhythm. ABDOMEN: No peritonitis. MUSCULOSKELETAL: No gross deformity of the lower extremities noted. No clubbing. No cyanosis. SKIN: Good skin turgor. Well perfused. NEUROLOGIC: Cranial nerves I through XII grossly intact. No focal or lateralizing signs. PSYCH: Appropriate affect. CLINICAL LABS: White blood cell count normal STUDIES: Abdominal x-ray report consistent with improved ileus. ASSESSMENT: 1. Small bowel obstruction status post laparotomy PLAN: 1. Clinically, abdominal pain is improved and is passing flatus with ileus resolved. 2. Will start clears. Objective - Vital Signs Vital signs: Vital Signs Temp 98.2 F 10/19/19 05:50 Pulse 82 10/19/19 05:50 Resp 15 10/19/19 05:50 BP 167/80 10/19/19 05:50 Pulse Ox 96 10/19/19 05:50 Intake & Output 10/18/19 10/19/19 10/19/19 18:59 06:59 18:59 Intake Total 600 Balance 600 Weight 77.111 kg Intake: IV 600 Sodium Chloride 0.9% 1, 600 000 ml @ 75 mls/hr IV . [id number] [facility] Rx#:[id number] Other: Voiding Method Bedside Commode Bedside Commode # Voids 1 # Bowel Movements 4 1 - Labs CBC & Chem 7: 10/18/19 08:33 10/18/19 08:33 Assessment and Plan (1) Small bowel obstruction Current Visit: Yes Status: Acute Code(s): K56.609 - UNSP INTESTNL OBST, UNSP TO PARTIAL VERSUS COMPLETE OBST SNOMED Code(s): 373876287
[2019-10-19] MEDS: LISINOPRIL 20 MG TAB PO SCH (21:02)
[2019-10-20] MEDS: METOCLOPRAMIDE 5 MG/ML 2 ML VIAL IVP SCH ×3 (05:40→16:22)
[2019-10-20 08:04] LABS: Basophils % (A) 0 %; Eosinophils # (A) 0.3 k/uL (0-0.7); Eosinophils % (A) 3 %; HCT 32.7 % (34.0-46.0); HGB 11.3 gm/dL (11.4-16.0); Lymphocytes # (A) 1.8 k/uL (1.0-4.8); Lymphocytes % (A) 19 %; MCH 31.2 pg (25.0-35.0); MCHC 34.7 g/dL (31.0-37.0); MCV 90.1 fL (80.0-100.0); Mean Platelet Volume 9.4; Monocytes # (A) 0.4 k/uL (0-1.0); Monocytes % (A) 5 %; Neutrophils # (A) 6.9 k/uL (1.3-7.7); Neutrophils % (A) 72 %; Platelet Count 209 k/uL (150-450); RBC 3.63 m/uL (3.80-5.40); WBC 9.6 k/uL (3.8-10.6)
[2019-10-20 08:16] LABS: Calcium 8.7 mg/dL (8.4-10.2); Potassium 2.9 mmol/L (3.5-5.1)
[2019-10-20] MEDS ORDERED: Potassium Replacement Protocol 1 EACH MISC MISCELLANE PRN (09:11)
[2019-10-20] MEDS: HEPARIN SODIUM,PORCINE 5,000 UNIT/ML 1 ML VIAL SQ SCH ×2 (09:21→22:04)
[2019-10-20] MEDS: FUROSEMIDE 20 MG TAB PO SCH (09:21)
[2019-10-20] MEDS: ISOSORBIDE MONONITRATE ER 30 MG TAB.ER.24H PO SCH (09:21)
[2019-10-20] MEDS: amLODIPine 10 MG TAB PO SCH (09:21)
[2019-10-20] MEDS: PANTOPRAZOLE 40 MG/10 ML VIAL IVP SCH ×2 (09:22→22:04)
[2019-10-20] MEDS: POTASSIUM CHLORIDE ER 20 MEQ TAB.ER PO SCH ×3 (09:28→12:59)
--- NOTE | 2019-10-20 11:23 | P.PN ---
Subjective Progress Note Date: 10/20/19 CHIEF COMPLAINT: Ileus HISTORY OF PRESENT ILLNESS: The patient is a 79-year-old female status post l aparotomy for internal hernia. She tolerated liquid diet. Passing moderate flatus and having moderate bowel movements. She is an appetite for more food. ROS: No reports of nausea and vomiting. No fevers or chills. No new chest pain. No productive sputum PHYSICAL EXAM: VITAL SIGNS: Reviewed CONSTITUTIONAL: Well developed and in no acute distress. EYES: Conjuctivae without sclera icterus. Extraocular movements grossly intact. HEAD, EARS, NOSE, THROAT: Moist buccal mucosa. Head is atraumatic, normocephalic. Hears conversational speech. No nasal drainage. RESPIRATORY: Non-labored respirations and equal bilateral excursions. CARDIOVASCULAR: Palpable 2+ radial pulses. Regular rate. Regular rhythm. ABDOMEN: No peritonitis. Soft. Nontender. MUSCULOSKELETAL: No gross deformity of the lower extremities noted. No clubbing. No cyanosis. SKIN: Good skin turgor. Well perfused. NEUROLOGIC: Cranial nerves I through XII grossly intact. No focal or lateralizing signs. PSYCH: Appropriate affect. CLINICAL LABS: White blood cell count normal ASSESSMENT: 1. Small bowel obstruction status post laparotomy PLAN: 1. Will advance diet to grounded consistency. Objective - Vital Signs Vital signs: Vital Signs Temp 98.4 F 10/20/19 05:27 Pulse 78 10/20/19 05:27 Resp 15 10/20/19 05:27 BP 172/85 10/20/19 05:27 Pulse Ox 95 10/20/19 05:27 Intake & Output 10/19/19 10/20/19 10/20/19 18:59 06:59 18:59 Intake Total 1080 Balance 1080 Intake: Oral 1080 Other: Voiding Method Bedside Commode # Voids 3 1 # Bowel Movements 4 1 - Labs CBC & Chem 7: 10/20/19 07:33 10/20/19 07:33 Labs: Abnormal Lab Results - Last 24 Hours (Table) 10/20/19 10/20/19 Range/Units 07:33 07:33 RBC 3.63 L (3.80-5.40) m/uL Hgb 11.3 L (11.4-16.0) gm/dL Hct 32.7 L (34.0-46.0) % Sodium 136 L (137-145) mmol/L Potassium 2.9 L (3.5-5.1) mmol/L Chloride 95 L (98-107) mmol/L Carbon Dioxide 35 H (22-30) mmol/L Glucose 114 H (74-99) mg/dL Assessment and Plan (1) Small bowel obstruction Current Visit: Yes Status: Acute Code(s): K56.609 - UNSP INTESTNL OBST, UNSP TO PARTIAL VERSUS COMPLETE OBST SNOMED Code(s): 691437808
--- NOTE | 2019-10-20 17:30 | P.PN ---
Subjective Progress Note Date: 10/19/19 Principal diagnosis: Small bowel obstruction is a 79-year-old female with a past medical history of coronary artery disease, heart failure, COPD, GERD, hypertension, hyperlipidemia, gout admitted to the hospital with a chief complaint of abdominal pain with nausea and vomiting. Patient had abdominal x-rays showing persistent mildly dilated small bowel loops. Eventually the patient had exploratory laparotomy on 10/14/2019 for small bowel obstruction and lysis of adhesions. On 10/19/2019- patient was lying in bed comfortably appears to be no acute distress. No acute events reported by nursing staff. Patient has abdominal soreness. She is passing flatus and had a bowel movement. She denies having any fevers chills or rigors. No nausea or vomiting. No cough or difficulty in breathing. No chest pain or palpitations. Patient's labs and medications have been reviewed. Objective - Vital Signs Vital signs: Vital Signs Temp 97.5 F L 10/19/19 13:13 Pulse 91 10/19/19 13:13 Resp 16 10/19/19 13:13 BP 156/80 10/19/19 13:13 Pulse Ox 95 10/19/19 13:13 Intake & Output 10/18/19 10/19/19 10/19/19 18:59 06:59 18:59 Intake Total 600 1080 Balance 600 1080 Weight 77.111 kg Intake: IV 600 Sodium Chloride 0.9% 1, 600 000 ml @ 75 mls/hr IV . [id number] [facility] Rx#:[id number] Oral 1080 Other: Voiding Method Bedside Commode Bedside Commode # Voids 1 3 # Bowel Movements 4 1 4 - Exam GEN. APPEARANCE: alert, in no apparent distress HEENT: Normocephalic. Atraumatic. No pallor. No icterus. RESPIRATORY EXAM: normal lung sounds bilaterally. No wheeze or crackles. CARDIOVASCULAR EXAM: regular rate, normal rhythm, normal heart sounds. GI/ABDOMINAL EXAM: soft, normal bowel sounds. Mild soreness at the site of surgical site. Dressing intact and dry. EXTREMITIES EXAM: No pedal edema NEUROLOGICAL EXAM: alert, oriented X3, no focal deficits - Labs CBC & Chem 7: 10/20/19 07:33 10/20/19 07:33 Assessment and Plan Assessment: ASSESSMENT Small bowel obstruction Status post exploratory laparotomy Coronary artery disease Hypertension Hyperlipidemia GERD/reflux COPD Gout PLAN: Continue the patient on current medication regimen. Patient's diet is being advanced as tolerated. Further recommendations depending on the progress of the patient.
--- NOTE | 2019-10-20 17:32 | P.PN ---
Subjective Progress Note Date: 10/20/19 Principal diagnosis: Small bowel obstruction - status post exploratory laparotomy is a 79-year-old female with a past medical history of coronary artery disease, heart failure, COPD, GERD, hypertension, hyperlipidemia, gout admitted to the hospital with a chief complaint of abdominal pain with nausea and vomiting. Patient had abdominal x-rays showing persistent mildly dilated small bowel loops. Eventually the patient had exploratory laparotomy on 10/14/2019 for small bowel obstruction and lysis of adhesions. On 10/20- patient was lying in bed comfortably appears to be no acute distress. No acute events reported by nursing staff. Patient has abdominal soreness. She is passing flatus and had a bowel movement. She denies having any fevers chills or rigors. No nausea or vomiting. No cough or difficulty in breathing. No chest pain or palpitations. On reviewing the labs patient's potassium has been low. No new complaints. Patient's labs and medications have been reviewed. Active Medications Acetaminophen/Codeine Phosphate (Tylenol #3) 1 each PO Q4HR PRN PRN Reason: Moderate Pain Hydrocodone Bitart/Acetaminophen ([place] 5-325) 1 each PO Q4HR PRN PRN Reason: Pain Alprazolam (Xanax) 0.25 mg PO Q6HR PRN PRN Reason: Anxiety Amlodipine Besylate (Norvasc) 10 mg PO DAILY@0900 [facility] Last Admin: 10/20/19 09:21 Dose: 10 mg Documented by: Benzocaine (Hurricaine Edison) 1 spray MUCOUS MEM QID PRN PRN Reason: Mouth Irritation Furosemide (Lasix) 20 mg PO DAILY@0900 [facility] Last Admin: 10/20/19 09:21 Dose: 20 mg Documented by: Heparin Sodium (Porcine) (Heparin) 5,000 unit SQ Q12HR [facility] Last Admin: 10/20/19 09:21 Dose: 5,000 unit Documented by: Hydralazine HCl (Apresoline) 10 mg IVP Q4HR PRN PRN Reason: Blood Pressure - High Last Admin: 10/17/19 13:29 Dose: 10 mg Documented by: Hydromorphone HCl (Dilaudid) 0.5 mg IVP Q4HR PRN PRN Reason: Severe Pain Last Admin: 10/13/19 17:51 Dose: 0.5 mg Documented by: Hydromorphone HCl (Dilaudid) 1 mg IM Q3HR PRN PRN Reason: Pain Ropivacaine 400 mg/Hydromorphone HCl 1.25 mg/Sodium Chloride 250.125 mls @ 0 mls/hr EPIDURAL .Q0M PRN; Protocol PRN Reason: Pain Control Last Infusion: 10/14/19 22:00 Dose: 2 mls/hr Documented by: Isosorbide Mononitrate (Imdur) 30 mg PO DAILY@0900 [facility] Last Admin: 10/20/19 09:21 Dose: 30 mg Documented by: Lisinopril (Zestril) 20 mg PO DAILY@2100 [facility] Last Admin: 10/19/19 21:02 Dose: 20 mg Documented by: Metoclopramide HCl (Reglan) 10 mg IVP Q6HR [facility] Last Admin: 10/20/19 16:22 Dose: Not Given Documented by: Miscellaneous Information (Potassium Per Protocol) 1 each MISCELLANE DAILY PRN; Protocol PRN Reason: Per Protocol Miscellaneous Information (Potassium Per Protocol) 1 each MISCELLANE DAILY PRN; Protocol PRN Reason: Per Protocol Miscellaneous Information (Potassium Per Protocol) 1 each MISCELLANE DAILY PRN; Protocol PRN Reason: Per Protocol Naloxone HCl (Narcan) 0.2 mg IV Q2M PRN PRN Reason: Opioid Reversal Naloxone HCl (Narcan) 0.2 mg IV Q2M PRN PRN Reason: Opioid Reversal Ondansetron HCl (Zofran) 4 mg IVP Q6HR PRN PRN Reason: Nausea And Vomiting Last Admin: 10/17/19 01:51 Dose: 4 mg Documented by: Pantoprazole Sodium (Protonix) 40 mg IVP BID [facility] Last Admin: 10/20/19 09:22 Dose: 40 mg Documented by: Objective - Vital Signs Vital signs: Vital Signs Temp 99.1 F 10/20/19 13:34 Pulse 92 10/20/19 13:34 Resp 16 10/20/19 13:34 BP 153/83 10/20/19 13:34 Pulse Ox 96 10/20/19 13:34 Intake & Output 10/19/19 10/20/19 10/20/19 18:59 06:59 18:59 Intake Total 1080 540 Output Total 2 Balance 1080 538 Intake: Oral 1080 540 Output: Stool 2 Other: Voiding Method Bedside Commode # Voids 3 1 3 # Bowel Movements 4 1 - Exam GEN. APPEARANCE: Sitting comfortably in a chair by the bedside. HEENT: Normocephalic. Atraumatic. No pallor. No icterus. RESPIRATORY EXAM: normal lung sounds bilaterally. No wheeze or crackles. CARDIOVASCULAR EXAM: regular rate, normal rhythm, normal heart sounds. GI/ABDOMINAL EXAM: soft, normal bowel sounds. Mild soreness at the site of surgical site. Dressing intact and dry. EXTREMITIES EXAM: No pedal edema NEUROLOGICAL EXAM: alert, oriented X3, no focal deficits - Labs CBC & Chem 7: 10/20/19 07:33 10/20/19 07:33 Labs: Abnormal Lab Results - Last 24 Hours (Table) 10/20/19 10/20/19 Range/Units 07:33 07:33 RBC 3.63 L (3.80-5.40) m/uL Hgb 11.3 L (11.4-16.0) gm/dL Hct 32.7 L (34.0-46.0) % Sodium 136 L (137-145) mmol/L Potassium 2.9 L (3.5-5.1) mmol/L Chloride 95 L (98-107) mmol/L Carbon Dioxide 35 H (22-30) mmol/L Glucose 114 H (74-99) mg/dL Assessment and Plan Assessment: ASSESSMENT Small bowel obstruction Status post exploratory laparotomy Hypokalemia Coronary artery disease Hypertension Hyperlipidemia GERD/reflux COPD Gout PLAN: Replace potassium . Continue the patient on current medication regimen. Patient's diet is being advanced as tolerated. Further recommendations depending on the progress of the patient.
[2019-10-20] MEDS: LISINOPRIL 20 MG TAB PO SCH (22:05)
[2019-10-21] MEDS: METOCLOPRAMIDE 5 MG/ML 2 ML VIAL IVP SCH ×3 (01:18→12:48)
[2019-10-21] MEDS: POTASSIUM CHLORIDE ER 20 MEQ TAB.ER PO SCH ×2 (02:09→03:05)
--- NOTE | 2019-10-21 07:30 | P.PN ---
Subjective Principal diagnosis: Small bowel obstruction. Status post expiratory laparotomy with repair. Postop day #7 This is an 79-year-old black female essentially admitted for partial small bowel obstruction. Status post laparotomy with surgical repair. The patient feels much better this morning and would like to eat. Postop day 7. Appetite is improving. Objective - Vital Signs Vital signs: Vital Signs Temp 97.4 F L 10/21/19 05:12 Pulse 78 10/21/19 05:12 Resp 20 10/21/19 05:12 BP 136/79 10/21/19 05:12 Pulse Ox 98 10/21/19 05:12 Intake & Output 10/20/19 10/21/19 10/21/19 18:59 06:59 18:59 Intake Total 540 800 Output Total 2 0 Balance 538 800 Intake: Oral 540 800 Output: Stool 2 0 Other: Voiding Method Bedside Commode # Voids 3 2 # Bowel Movements 2 - Constitutional General appearance: Present: no acute distress - EENT Eyes: Absent: abnormal pupil - Neck Neck: Absent: lymphadenopathy - Respiratory Respiratory: bilateral: CTA - Cardiovascular Rhythm: regular Heart sounds: normal: S1, S2 Abnormal Heart Sounds: Absent: S3 Gallop - Gastrointestinal General gastrointestinal: Present: soft. Absent: tenderness - Integumentary Integumentary: Absent: cellulitis - Labs CBC & Chem 7: 10/20/19 07:33 10/20/19 22:31 Labs: Abnormal Lab Results - Last 24 Hours (Table) 10/20/19 10/20/19 10/20/19 Range/Units 07:33 07:33 22:31 RBC 3.63 L (3.80-5.40) m/uL Hgb 11.3 L (11.4-16.0) gm/dL Hct 32.7 L (34.0-46.0) % Sodium 136 L (137-145) mmol/L Potassium 2.9 L 3.3 L (3.5-5.1) mmol/L Chloride 95 L (98-107) mmol/L Carbon Dioxide 35 H (22-30) mmol/L Glucose 114 H (74-99) mg/dL Assessment and Plan (1) Small bowel obstruction Current Visit: Yes Status: Acute Code(s): K56.609 - UNSP INTESTNL OBST, UNSP TO PARTIAL VERSUS COMPLETE OBST SNOMED Code(s): 008183095 (2) Dehydration Current Visit: No Status: Acute Code(s): E86.0 - DEHYDRATION SNOMED Code(s): 84407880 Plan: Continue current regimen of treatment. Status post Exploratory laparotomy with surgical repair. Advance diet per surgery. Hopefully home soon. DC when cleared by surgery.
[2019-10-21] MEDS: PANTOPRAZOLE 40 MG/10 ML VIAL IVP SCH (08:36)
[2019-10-21] MEDS: HEPARIN SODIUM,PORCINE 5,000 UNIT/ML 1 ML VIAL SQ SCH (08:37)
[2019-10-21] MEDS: FUROSEMIDE 20 MG TAB PO SCH (08:38)
[2019-10-21] MEDS: ISOSORBIDE MONONITRATE ER 30 MG TAB.ER.24H PO SCH (08:38)
[2019-10-21] MEDS: amLODIPine 10 MG TAB PO SCH (08:38)
[2019-10-21 10:31] VITALS: BMI 31.4
--- NOTE | 2019-10-21 11:27 | P.PN ---
Subjective Progress Note Date: 10/21/19 CHIEF COMPLAINT: Abdominal pain HISTORY OF PRESENT ILLNESS: Patient is status post exploratory laparotomy and lysis of adhesions secondary to internal hernia. Patient examined at the bedside. She currently denies abdominal pain. Tolerating diet without nausea or vomiting. Potassium place and having bowel movements. She is anxious to be discharged home today. PHYSICAL EXAM: VITAL SIGNS: Reviewed. GENERAL: Well-developed in no acute distress. HEENT: No sclera icterus. Extraocular movements grossly intact. Moist buccal mucosa. Head is atraumatic, normocephalic. ABDOMEN: Soft. Nondistended. Appropriate surgical tenderness. NEUROLOGIC: Alert and oriented. Cranial nerves II through XII grossly intact. ASSESSMENT: 1. Small bowel obstruction secondary to internal hernia, status post exploratory laparotomy with lysis of adhesions 2. Postoperative ileus, an expected outcome of surgery resolved PLAN: Continue diet as tolerated. Patient is stable for discharge from a surgical standpoint. She is to follow up with Dr. Dumont outpatient next week. Nurse practitioner note has been reviewed by physician. Signing provider agrees with the documented findings, assessment, and plan of care. Objective - Vital Signs Vital signs: Vital Signs Temp 97.4 F L 10/21/19 05:12 Pulse 78 10/21/19 05:12 Resp 20 10/21/19 08:00 BP 136/79 10/21/19 05:12 Pulse Ox 98 10/21/19 05:12 Intake & Output 10/20/19 10/21/19 10/21/19 18:59 06:59 18:59 Intake Total 540 800 120 Output Total 2 0 Balance 538 800 120 Weight 72.892 kg Intake: Oral 540 800 120 Output: Stool 2 0 Other: Voiding Method Bedside Commode Bedside Commode # Voids 3 2 # Bowel Movements 2 - Labs CBC & Chem 7: 10/20/19 07:33 10/20/19 22:31 Labs: Abnormal Lab Results - Last 24 Hours (Table) 10/20/19 Range/Units 22:31 Potassium 3.3 L (3.5-5.1) mmol/L
[2019-10-21 13:24] VITALS: BP 125/73; PULSE 86; RESP 16; TEMP 98.1
== END 2019-10-21 17:55 | disposition home health service (06) | DRG 336 ==
LOC: EC 13:46 → 4MS4W 16:52
PROVIDERS: ADMIT Family Medicine; ATTEND Family Medicine
PROC: 0DN80ZZ Release Small Intestine, Open Approach (ICD-10-PCS; principal; 2019-10-14 12:35)
DX: K46.0 Unspecified abdominal hernia with obstruction, without gangrene (principal); K56.51 Intestinal adhesions [bands], with partial obstruction; K56.7 Ileus, unspecified; R18.8 Other ascites; E66.9 Obesity, unspecified; E78.5 Hyperlipidemia, unspecified; E86.0 Dehydration; E87.6 Hypokalemia; F41.9 Anxiety disorder, unspecified; I11.0 Hypertensive heart disease with heart failure; I25.10 Atherosclerotic heart disease of native coronary artery without angina pectoris; I50.9 Heart failure, unspecified; J44.9 Chronic obstructive pulmonary disease, unspecified; K21.9 Gastro-esophageal reflux disease without esophagitis; M10.9 Gout, unspecified; Z68.33 Body mass index [BMI] 33.0-33.9, adult; Z79.899 Other long term (current) drug therapy; Z87.01 Personal history of pneumonia (recurrent); Z88.0 Allergy status to penicillin
CPT/HCPCS: 36415; 71045; 74019; 74177; 80048; 80053; 81001; 82150; 83690; 84132; 85025; 85027; 87324; 88305; 96361; 96374; 96375; 99285

== ENCOUNTER 2022-11-22 14:50 | Emergency (ER) | payer MEDICARE, OTHER ==
[2022-11-22] MEDS ORDERED: lisinopriL 20 MG TAB PO STA (15:36)
--- NOTE | 2022-11-22 15:36 | ED ---
Dizziness HPI - General Chief Complaint: Dizziness Stated Complaint: fall Time Seen by Provider: 11/22/22 15:08 Source: patient Mode of arrival: EMS Limitations: no limitations - History of Present Illness Initial Comments: This patient is an 82-year-old woman presenting with complaint that she has not been feeling quite right, she is having an unsteady balance feeling and did have a fall. She is denying focal weakness. She denies change in vision. She states the symptoms are worse when she is up walking, better at rest. MD Complaint: dizziness, difficulty walking -: days(s) Timing: gradual onset Description: off-balance, difficulty walking History of Trauma: Yes Severity: mild Improves With: rest Worsens With: movement Associated Symptoms: denies other symptoms - Related Data Home Medications Medication Instructions Recorded Confirmed Isosorbide Mononitrate [Imdur] 30 mg PO DAILY@0900 06/20/14 10/11/19 Cyanocobalamin [Vitamin B-12] 500 mcg PO DAILY@1200 01/15/18 10/11/19 lisinopriL [Zestril] 20 mg PO DAILY@2100 01/15/18 10/11/19 Ferrous Sulfate [Iron (65 MG 325 mg PO DAILY@1200 11/09/18 10/11/19 Elemental)] amLODIPine [Norvasc] 5 mg PO DAILY@0900 11/09/18 10/11/19 [place]-3 Fatty Acids/Fish Oil [Fish 2 cap PO DAILY@1800 01/16/19 10/11/19 Oil 1,000 mg Softgel] Furosemide [Lasix] 20 mg PO DAILY@0900 10/11/19 10/11/19 Previous Rx's Medication Instructions Recorded Hydrocodone/Acetaminophen [[place] 1 tab PO Q6HR PRN 3 Days #12 tab 10/21/19 5-325] Allergies Allergy/AdvReac Type Severity Reaction Status Date / Time Penicillins AdvReac Unknown Verified 11/22/22 16:56 Review of Systems ROS Statement: Those systems with pertinent positive or pertinent negative responses have been documented in the HPI. ROS Other: All systems not noted in ROS Statement are negative. Constitutional: Reports: weakness. Denies: fever, chills Eyes: Denies: eye pain, vision change ENT: Denies: ear pain, epistaxis Respiratory: Denies: cough Cardiovascular: Denies: chest pain, palpitations, edema, syncope Gastrointestinal: Reports: nausea. Denies: abdominal pain, vomiting, diarrhea Genitourinary: Denies: dysuria, hematuria Musculoskeletal: Denies: back pain Skin: Denies: rash Neurological: Denies: headache, weakness, numbness Hematological/Lymphatic: Denies: easy bleeding Past Medical History Past Medical History: Coronary Artery Disease (CAD), Chest Pain / Angina, Heart Failure, COPD, GERD/Reflux, Hyperlipidemia, Hypertension, Pneumonia Additional Past Medical History / Comment(s): GOUT History of Any Multi-Drug Resistant Organisms: None Reported Past Surgical History: Back Surgery Additional Past Surgical History / Comment(s): breast biopsy Past Anesthesia/Blood Transfusion Reactions: No Reported Reaction Past Psychological History: No Psychological Hx Reported Past Alcohol Use History: Occasional Past Drug Use History: None Reported General Exam Limitations: no limitations General appearance: alert, in no apparent distress Head exam: Present: atraumatic, normocephalic Eye exam: Present: normal appearance, PERRL, EOMI. Absent: scleral icterus, conjunctival injection, nystagmus ENT exam: Present: normal oropharynx Neck exam: Present: normal inspection, full ROM. Absent: tenderness Respiratory exam: Present: normal lung sounds bilaterally. Absent: respiratory distress, wheezes, rales, rhonchi, stridor, chest wall tenderness, accessory muscle use Cardiovascular Exam: Present: normal rhythm, bradycardia (Rate approximately 56 bpm), systolic murmur. Absent: diastolic murmur, rubs, gallop GI/Abdominal exam: Present: soft. Absent: distended, tenderness, guarding, rebound, rigid, mass Extremities exam: Present: normal inspection, normal capillary refill. Absent: pedal edema, calf tenderness Back exam: Present: normal inspection. Absent: CVA tenderness (R), CVA tenderness (L) Neurological exam: Present: alert, oriented X3, CN II-XII intact. Absent: motor sensory deficit Skin exam: Present: warm, dry, intact, normal color. Absent: rash Course Vital Signs 11/22/22 11/22/22 11/22/22 14:56 16:48 18:00 Temperature 98.6 F 98.5 F Pulse Rate 55 L 59 L Respiratory 18 19 Rate Blood Pressure 198/80 192/89 176/81 O2 Sat by Pulse 98 100 Oximetry EKG Findings - EKG Results: EKG: interpreted by ERMD, sinus rhythm, normal axis EKG shows: bradycardia (Rate 51 bpm) - Blocks, [place], Hypertrophy, ST Abn: AV and intraventricular conduction: 1 AV block Chamber hypertrophy or enlargement: left ventricular hypertrophy or enlargement (LVE) Repolarization changes or abnormalities: nonspecific abnormality, ST segment, and/or T wave Medical Decision Making - Medical Decision Making This patient is an 82-year-old woman presenting with complaint that she has not been feeling quite right, she is having an unsteady balance feeling and did have a fall. She is denying focal weakness. She denies change in vision. She states the symptoms are worse when she is up walking, better at rest. The patient has chest x-ray which I interpreted as showing no pulmonary infiltrate, no mediastinal widening. The patient has CT of the brain which I interpreted as showing no skull fracture or acute intracranial hemorrhage Was pt. sent in by a medical professional or institution? @ -no Did you speak to anyone other than the patient for history? @ -[no Did you review nursing and triage notes? @ -[agree Were old charts reviewed? @ -[No Differential Diagnosis? @ -[Differential Dizziness: Benign paroxysmal positional Vertigo, Menieres disease, otitis media, acoustic neuroma, vertebrobasilar insufficiency, cerebellar stroke, encephalitis, hypovolemic, arrhythmia, coronary artery syndrome, anemia, this is not meant to be an all-inclusive list EKG interpreted by me (3pts min.)? @ -[See list X-rays interpreted by me (1pt min.)? @ -See chart CT interpreted by me (1pt min.)? @ -[See chart U/S interpreted by me (1pt. min.)? @ -[none] What testing was considered but not performed? (CT, X-rays, U/S, labs)? Why? @ [no What meds were considered but not given? Why? @ -[none] Did you discuss the management of the patient with other professionals? @ -[No Did you reconcile home meds? @ -[none] Was smoking cessation discussed for >3mins.? @ -[none] Was critical care preformed (if so, how long)? @ -[none] Were there social determinants of health that impacted care today? How? (Homelessness, low income, unemployed, alcoholism, drug addiction, transpo rtation, low edu. Level, literacy, decrease access to med. care, long term, rehab)? @ -No Was there de-escalation of care discussed even if they declined? (Discuss DNR or withdrawal of care, Hospice)? @ -[No What co-morbidities impacted this encounter? (DM, HTN, Smoking, COPD, CAD, Cancer, CVA, Hep., AIDS, mental health diagnosis, sleep apnea, morbid obesity)? @ -[Hypertension Was patient admitted / discharged? @ -[Discharged Undiagnosed new problem with uncertain prognosis? @ -[none] Drug Therapy requiring intensive monitoring for toxicity (Heparin, Nitro, Insulin, Cardizem)? @ -[none] Were any procedures done? @ -[none] Diagnosis/symptom? @ -[1. Dizziness 2. Hypertension Acute, or Chronic, or Acute on Chronic? @ -[1. Acute on chronic 2. Acute on chronic Uncomplicated (without systemic symptoms) or Complicated (systemic symptoms)? @ -[Uncomplicated Side effects of treatment? @ -[none] Exacerbation, Progression, or Severe Exacerbation] @ -[no] Poses a threat to life or bodily function? @ -[no] - Lab Data Result diagrams: 11/22/22 15:47 11/22/22 15:47 Lab Results 11/22/22 11/22/22 11/22/22 Range/Units 15:47 15:47 15:47 WBC 4.7 (3.8-10.6) k/uL RBC 3.98 (3.80-5.40) m/uL Hgb 12.2 (11.4-16.0) gm/dL Hct 36.3 (34.0-46.0) % MCV 91.1 (80.0-100.0) fL MCH 30.6 (25.0-35.0) pg MCHC 33.6 (31.0-37.0) g/dL RDW 13.0 (11.5-15.5) % Plt Count 132 L (150-450) k/uL MPV 8.7 Neutrophils % 51 % Lymphocytes % 37 % Monocytes % 6 % Eosinophils % 2 % Basophils % 1 % Neutrophils # 2.4 (1.3-7.7) k/uL Lymphocytes # 1.8 (1.0-4.8) k/uL Monocytes # 0.3 (0-1.0) k/uL Eosinophils # 0.1 (0-0.7) k/uL Basophils # 0.0 (0-0.2) k/uL Sodium 138 (137-145) mmol/L Potassium 4.1 (3.5-5.1) mmol/L Chloride 108 H (98-107) mmol/L Carbon Dioxide 25 (22-30) mmol/L Anion Gap 5 mmol/L BUN 16 (7-17) mg/dL Creatinine 0.83 (0.52-1.04) mg/dL Est GFR (CKD-EPI)AfAm 75 (>60 ml/min/1.73 sqM) Est GFR (CKD-EPI)NonAf 65 (>60 ml/min/1.73 sqM) Glucose 77 (74-99) mg/dL Plasma Lactic Acid Moshe (0.7-2.0) mmol/L Calcium 7.7 L (8.4-10.2) mg/dL Total Bilirubin 0.9 (0.2-1.3) mg/dL AST 33 (14-36) U/L ALT 17 (4-34) U/L Alkaline Phosphatase 40 (38-126) U/L Troponin I (0.000-0.034) ng/mL Total Protein 7.1 (6.3-8.2) g/dL Albumin 4.0 (3.5-5.0) g/dL Urine Color Colorless Urine Appearance Clear (Clear) Urine pH 6.5 (5.0-8.0) Ur Specific [place] 1.003 (1.001-1.035) Urine Protein Negative (Negative) Urine Glucose (UA) Negative (Negative) Urine Ketones Negative (Negative) Urine Blood Negative (Negative) Urine Nitrite Negative (Negative) Urine Bilirubin Negative (Negative) Urine Urobilinogen <2.0 (<2.0) mg/dL Ur Leukocyte Esterase Negative (Negative) 11/22/22 11/22/22 Range/Units 15:47 15:47 WBC (3.8-10.6) k/uL RBC (3.80-5.40) m/uL Hgb (11.4-16.0) gm/dL Hct (34.0-46.0) % MCV (80.0-100.0) fL MCH (25.0-35.0) pg MCHC (31.0-37.0) g/dL RDW (11.5-15.5) % Plt Count (150-450) k/uL MPV Neutrophils % % Lymphocytes % % Monocytes % % Eosinophils % % Basophils % % Neutrophils # (1.3-7.7) k/uL Lymphocytes # (1.0-4.8) k/uL Monocytes # (0-1.0) k/uL Eosinophils # (0-0.7) k/uL Basophils # (0-0.2) k/uL Sodium (137-145) mmol/L Potassium (3.5-5.1) mmol/L Chloride (98-107) mmol/L Carbon Dioxide (22-30) mmol/L Anion Gap mmol/L BUN (7-17) mg/dL Creatinine (0.52-1.04) mg/dL Est GFR (CKD-EPI)AfAm (>60 ml/min/1.73 sqM) Est GFR (CKD-EPI)NonAf (>60 ml/min/1.73 sqM) Glucose (74-99) mg/dL Plasma Lactic Acid Moshe 1.4 (0.7-2.0) mmol/L Calcium (8.4-10.2) mg/dL Total Bilirubin (0.2-1.3) mg/dL AST (14-36) U/L ALT (4-34) U/L Alkaline Phosphatase (38-126) U/L Troponin I 0.015 (0.000-0.034) ng/mL Total Protein (6.3-8.2) g/dL Albumin (3.5-5.0) g/dL Urine Color Urine Appearance (Clear) Urine pH (5.0-8.0) Ur Specific [place] (1.001-1.035) Urine Protein (Negative) Urine Glucose (UA) (Negative) Urine Ketones (Negative) Urine Blood (Negative) Urine Nitrite (Negative) Urine Bilirubin (Negative) Urine Urobilinogen (<2.0) mg/dL Ur Leukocyte Esterase (Negative) Disposition Clinical Impression: Dizziness, Hypertension Disposition: HOME SELF-CARE Condition: Good Instructions (If sedation given, give patient instructions): Hypertension (ED), Dizziness (ED) Is patient prescribed a controlled substance at d/c from ED?: No Referrals: Blaise Liao MD [Primary Care Provider] - 1-2 days
--- NOTE | 2022-11-22 16:00 | XR ---
EXAMINATION TYPE: XR chest 2V DATE OF EXAM: 11/22/2022 COMPARISON: 10/11/2019 TECHNIQUE: PA and lateral views submitted. HISTORY: Dizziness FINDINGS: The lungs are clear and there is no pneumothorax, pleural effusion, or focal pneumonia. Heart cardi omegaly with ectasia of the aorta. Suggestive a scoliotic curvature of the spine. Multilevel severe d egenerative change. Arthropathy of the shoulders.. Osseous structures demonstrate hypertrophic and de generative changes of the spine. IMPRESSION: 1. No acute process. 2. Cardiomegaly 3. There is a 7 mm vague peripheral left upper lobe pulmonary nodule too small to characterize
[2022-11-22 16:04] LABS: Basophils % (A) 1 %; Eosinophils # (A) 0.1 k/uL (0-0.7); Eosinophils % (A) 2 %; HCT 36.3 % (34.0-46.0); HGB 12.2 gm/dL (11.4-16.0); Lymphocytes # (A) 1.8 k/uL (1.0-4.8); Lymphocytes % (A) 37 %; MCH 30.6 pg (25.0-35.0); MCHC 33.6 g/dL (31.0-37.0); MCV 91.1 fL (80.0-100.0); Mean Platelet Volume 8.7; Monocytes # (A) 0.3 k/uL (0-1.0); Monocytes % (A) 6 %; Neutrophils # (A) 2.4 k/uL (1.3-7.7); Neutrophils % (A) 51 %; Platelet Count 132 k/uL (150-450); RBC 3.98 m/uL (3.80-5.40); WBC 4.7 k/uL (3.8-10.6)
--- NOTE | 2022-11-22 16:06 | CT ---
EXAMINATION TYPE: CT brain wo con CT DLP: 1094.4 mGycm, Automated exposure control for dose reduction was used. DATE OF EXAM: 11/22/2022 4:01 PM COMPARISON: CT brain C-spine 01/16/2019. CLINICAL INDICATION:Female, 82 years old with history of head trauma, moderate, fall TECHNIQUE: Brain: Multiple axial CT images of the brain were obtained without IV contrast. Coronal and sagittal reformats reviewed. FINDINGS: Brain: Extra-axial spaces: No abnormal extra-axial fluid collections. Ventricular system: Within normal limits Cerebral parenchyma: No acute intraparenchymal hemorrhage or mass effect. The berrios-white junction is well differentiated. Scattered hypoattenuating areas are seen within the white matter. Cerebellum: Unremarkable. Mass effect: No evidence of midline shift. Intracranial vasculature: Atherosclerotic calcifications of the intracranial vessels. Soft tissues: Normal. Calvarium/osseous structures: No depressed skull fracture. Paranasal sinuses and mastoid air cells: Clear Visualized orbits: Bilateral aphakia IMPRESSION: 1. No acute intracranial process. 2. Nonspecific white matter changes, likely secondary to chronic small vessel ischemic disease.
[2022-11-22 16:14] LABS: Calcium 7.7 mg/dL (8.4-10.2); Total Bilirubin 0.9 mg/dL (0.2-1.3); Total Protein 7.1 g/dL (6.3-8.2)
[2022-11-22 16:16] LABS: Appearance,Urine Clear (Clear); Bilirubin,Urine Negative (Negative); Blood,Urine Negative (Negative); Color,Urine Colorless; Glucose,Urine (UA) Negative (Negative); Ketones,Urine Negative (Negative); Leukocyte Esterase,Urine Negative (Negative); Nitrite,Urine Negative (Negative); PH, Urine 6.5 (5.0-8.0); Potassium 4.1 mmol/L (3.5-5.1); Protein,Urine Negative (Negative); Specific Gravity,Urine 1.003 (1.001-1.035); Urobilinogen,Urine <2.0 mg/dL (<2.0)
[2022-11-22] MEDS ORDERED: hydrALAZINE HCL 20 MG/ML 1 ML VIAL IVP STA (17:00)
[2022-11-22 18:01] VITALS: BP 176/81; PULSE 59; RESP 19; TEMP 98.5
== END 2022-11-22 18:43 | disposition home or self-care (01) ==
LOC: EC 14:50
DX: I11.0 Hypertensive heart disease with heart failure (principal); I50.9 Heart failure, unspecified; I25.10 Atherosclerotic heart disease of native coronary artery without angina pectoris; J44.9 Chronic obstructive pulmonary disease, unspecified; Z79.899 Other long term (current) drug therapy; Z88.0 Allergy status to penicillin
CPT/HCPCS: 36415; 93005; 80053; 83605; 84484; 85025; 81003; 71046; 70450; 99285; 96374; J0360

== ENCOUNTER 2023-12-22 16:32 | Emergency (ER) | payer MEDICARE, OTHER ==
[2023-12-22 17:01] VITALS: PULSE 64; TEMP 98.2
--- NOTE | 2023-12-22 17:10 | XR ---
EXAMINATION TYPE: XR chest 1V DATE OF EXAM: 12/22/2023 COMPARISON: Chest x-ray January 07, 2023 HISTORY: Chest pain TECHNIQUE: Single frontal view of the chest is obtained. FINDINGS: There is no focal air space opacity, pleural effusion, or pneumothorax seen. Cardiomegaly is redemonstrated with ectatic thoracic aorta. The osseous structures are intact. IMPRESSION: Cardiomegaly without acute pulmonary process. No significant change from prior.
--- NOTE | 2023-12-22 17:11 | XR ---
EXAMINATION TYPE: XR shoulder complete RT DATE OF EXAM: 12/22/2023 CLINICAL HISTORY: Pain after fall TECHNIQUE: Three views of the right shoulder are obtained. COMPARISON: Right shoulder x-ray September 16, 2017 FINDINGS: Osseous structures are demineralized. There is no acute fracture/dislocation evident in th e right shoulder. Moderate to advanced narrowing at the acromioclavicular joint is redemonstrated. Gl enohumeral joint is preserved. Visualized ribs are intact. IMPRESSION: As above.
--- NOTE | 2023-12-22 17:20 | ED ---
Fall HPI - General Chief Complaint: Fall Stated Complaint: Fall, R Shoulder Injury,poss Covid Time Seen by Provider: 12/22/23 16:39 Source: patient, RN notes reviewed, old records reviewed Mode of arrival: ambulatory Limitations: no limitations - History of Present Illness Initial Comments: This is a 83-year-old female to the ER after a fall. Fall from standing with no syncopal event no headache chest pain shortness of breath or abdominal pain. 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: yes, by family Place Fall Occurred: home Loss of Consciousness: none Prolonged Down Time?: no Symptoms Prior to Fall: none Severity: moderate Severity scale (1-10): 3 Quality: sharp Context: tripped/slipped Associated Symptoms: denies - Related Data Home Medications Medication Instructions Recorded Confirmed lisinopriL [Zestril] 20 mg PO DAILY 01/15/18 01/07/23 Furosemide [Lasix] 20 mg PO DAILY 10/11/19 01/07/23 ALPRAZolam [Xanax] 0.5 mg PO DAILY PRN 01/07/23 01/07/23 amLODIPine [Norvasc] 5 mg PO DAILY 01/07/23 01/07/23 Allergies Allergy/AdvReac Type Severity Reaction Status Date / Time Penicillins AdvReac Unknown Verified 12/22/23 16:38 Review of Systems ROS Statement: Those systems with pertinent positive or pertinent negative responses have been documented in the HPI. ROS Other: All systems not noted in ROS Statement are negative. Past Medical History Past Medical History: Coronary Artery Disease (CAD), Chest Pain / Angina, Heart Failure, COPD, CVA/TIA, GERD/Reflux, Hyperlipidemia, Hypertension, Pneumonia Additional Past Medical History / Comment(s): GOUT History of Any Multi-Drug Resistant Organisms: None Reported Past Surgical History: Back Surgery, No Surgical Hx Reported Additional Past Surgical History / Comment(s): breast biopsy Past Anesthesia/Blood Transfusion Reactions: No Reported Reaction Past Psychological History: No Psychological Hx Reported Smoking Status: Former smoker, Never smoker Past Alcohol Use History: None Reported Past Drug Use History: None Reported General Exam Limitations: no limitations General appearance: alert, in no apparent distress, anxious Head exam: Present: atraumatic, normocephalic, normal inspection Eye exam: Present: normal appearance, PERRL, EOMI. Absent: scleral icterus, conjunctival injection, periorbital swelling ENT exam: Present: normal exam, mucous membranes moist Neck exam: Present: normal inspection. Absent: tenderness, meningismus, lymphadenopathy Respiratory exam: Present: normal lung sounds bilaterally. Absent: respiratory distress, wheezes, rales, rhonchi, stridor Cardiovascular Exam: Present: regular rate, normal rhythm, normal heart sounds. Absent: systolic murmur, diastolic murmur, rubs, gallop, clicks GI/Abdominal exam: Present: soft, normal bowel sounds. Absent: distended, tenderness, guarding, rebound, rigid Extremities exam: Present: normal inspection, full ROM, normal capillary refill. Absent: tenderness, pedal edema, joint swelling, calf tenderness Back exam: Present: normal inspection Neurological exam: Present: alert, oriented X3, CN II-XII intact Psychiatric exam: Present: normal affect, normal mood Skin exam: Present: warm, dry, intact, normal color. Absent: rash Course Vital Signs 12/22/23 12/22/23 16:36 18:23 Temperature 98.2 F Pulse Rate 64 64 Respiratory 20 18 Rate Blood Pressure 193/77 174/84 O2 Sat by Pulse 100 97 Oximetry - Reevaluation(s) Reevaluation #1: Medical records reviewed Reevaluation #2: Patient symptoms unchanged Reevaluation #3: Patient informed of results and questions answered Reevaluation #4: Was pt. sent in by a medical professional or institution (, PA, PRIVACY OFFICER, urgent care, hospital, or assisted...) When possible be specific @ -no Did you speak to anyone other than the patient for history (EMS, parent, family, police, friend...)? What history was obtained from this source @ -no Did you review nursing and triage notes (agree or disagree)? Why? @ -agree Are old charts reviewed (outside hosp., previous admission, EMS record, old EKG, old radiological studies, urgent care reports/EKG's, assisted records)? Report findings @ -yes Differential Diagnosis (chest pain, altered mental status, abdominal pain women, abdominal pain men, vaginal bleeding, weakness, fever, dyspnea, syncope, headache, dizziness, GI bleed, back pain, seizure, CVA, palpatations, mental health, musculoskeletal)? @ -prior EKG interpreted by me (3pts min.). @ -yes X-rays interpreted by me (1pt min.). @ -yes negative for acute disease CT interpreted by me (1pt min.). @ -no U/S interpreted by me (1pt. min.). @ -no What testing was considered but not performed or refused? (CT, X-rays, U/S, labs)? Why? @ -none What meds were considered but not given or refused? Why? @ -none Did you discuss the management of the patient with other professionals (professionals i.e. DrDae, PA, PRIVACY OFFICER, lab, RT, psych nurse, psychotherapist social worker, surgical garment assembler, teacher, radiation safety officer, behavioral health case manager)? Give summary @ -no Was smoking cessation discussed for >3mins.? @ -no Was critical care preformed (if so, how long)? @ -no Were there social determinants of health that impacted care today? How? (Homelessness, low income, unemployed, alcoholism, drug addiction, transportation, low edu. Level, literacy, decrease access to med. care, fci, rehab)? @ -none Was there de-escalation of care discussed even if they declined (Discuss DNR or withdrawal of care, Hospice)? DNR status @ -no What co-morbidities impacted this encounter? (DM, HTN, Smoking, COPD, CAD, Cancer, CVA, ARF, Chemo, Hep., AIDS, mental health diagnosis, sleep apnea, morbid obesity)? @ -none Was patient admitted / discharged? Hospital course, mention meds given and route, prescriptions, significant lab abnormalities, going to OR and other pertinent info. @ - 83 female to ER for evaluation of complaints of fall with coronavirus and exposure to influenza or COVID his family also numbers are appearing sick lately. Patient does have severe shoulder pain but no other complaints Discharge Undiagnosed new problem with uncertain prognosis? @ -no Drug Therapy requiring intensive monitoring for toxicity (Heparin, Nitro, Insulin, Cardizem)? @ -no Were any procedures done? @ -no Diagnosis/symptom? @ -Fall with right shoulder pain Acute, or Chronic, or Acute on Chronic? @ -Acute Uncomplicated (without systemic symptoms) or Complicated (systemic symptoms)? @ -Complicated Side effects of treatment? @ -no Exacerbation, Progression, or Severe Exacerbation? @ -exacerbation Poses a threat to life or bodily function? How? (Chest pain, [place], [place], pneumonia, PE, COPD, DKA, ARF, appy, cholecystitis, CVA, Diverticulitis, Homicidal, Suicidal, threat to staff... and all critical care pts) @ -yes Medical Decision Making - Medical Decision Making 83 female to ER for evaluation of complaints of fall with coronavirus and exposure to influenza or COVID his family also numbers are appearing sick lately. Patient does have severe shoulder pain but no other complaints - Lab Data Lab Results 12/22/23 Range/Units 16:48 SARS-CoV-2 (PCR) Not Detected (Not Detectd) - Radiology Data Radiology results: report reviewed (X-ray chest and shoulder negative for acute disease), image reviewed Disposition Clinical Impression: Fall, Right shoulder pain Disposition: HOME SELF-CARE Condition: Good Instructions (If sedation given, give patient instructions): Fall Prevention for Older Adults (ED), Shoulder Pain (ED) Is patient prescribed a controlled substance at d/c from ED?: No Referrals: Blaise Liao MD [Primary Care Provider] - 1-2 days Time of Disposition: 17:20
[2023-12-22 18:48] VITALS: BP 174/84; RESP 18
== END 2023-12-22 18:38 | disposition home or self-care (01) ==
LOC: EC 16:32
DX: M25.511 Pain in right shoulder (principal); I11.0 Hypertensive heart disease with heart failure; I25.10 Atherosclerotic heart disease of native coronary artery without angina pectoris; E78.5 Hyperlipidemia, unspecified; I50.9 Heart failure, unspecified; J44.9 Chronic obstructive pulmonary disease, unspecified; K21.9 Gastro-esophageal reflux disease without esophagitis; Z87.891 Personal history of nicotine dependence; Z88.0 Allergy status to penicillin; Z20.822 Contact with and (suspected) exposure to COVID-19; W18.30XA Fall on same level, unspecified, initial encounter
CPT/HCPCS: 71045; 87635; 99284

== ENCOUNTER 2024-05-13 09:23 | Observation (INO) | payer MEDICARE, OTHER ==
[2024-05-13 09:55] LABS: Glucose,Whole Blood 85 mg/dL (70-110)
[2024-05-13 10:06] LABS: Basophils % (A) 0 %; Eosinophils # (A) 0.1 k/uL (0-0.7); Eosinophils % (A) 2 %; HGB 12.6 gm/dL (11.4-16.0); Lymphocytes # (A) 1.7 k/uL (1.0-4.8); Lymphocytes % (A) 21 %; MCH 29.2 pg (25.0-35.0); MCHC 31.4 g/dL (31.0-37.0); MCV 93.1 fL (80.0-100.0); Mean Platelet Volume 8.4; Monocytes # (A) 0.5 k/uL (0-1.0); Monocytes % (A) 7 %; Neutrophils # (A) 5.4 k/uL (1.3-7.7); Neutrophils % (A) 69 %; Platelet Count 208 k/uL (150-450); RDW 13.4 % (11.5-15.5); WBC 7.8 k/uL (3.8-10.6)
[2024-05-13] MEDS: MORPHINE SULFATE 2 MG/ML SYRINGE IVP ONE (10:06)
[2024-05-13 10:12] LABS: ALT 13 U/L (4-34); AST 39 U/L (14-36); African American GFR (CKD) 49 (>60 ml/min/1.73 sqM); Albumin 4.5 g/dL (3.5-5.0); Alcohol <10 mg/dL; Alkaline Phosphatase 59 U/L (38-126); Anion Gap 9 mmol/L; Blood Urea Nitrogen 27 mg/dL (7-17); Calcium 9.6 mg/dL (8.4-10.2); Carbon Dioxide 26 mmol/L (22-30); Chloride 100 mmol/L (98-107); Creatine Kinase 674 U/L (30-135); Glucose 98 mg/dL (74-99); Non-African American GFR(CKD) 42 (>60 ml/min/1.73 sqM); Potassium 4.3 mmol/L (3.5-5.1); Sodium 135 mmol/L (137-145); Total Bilirubin 1.2 mg/dL (0.2-1.3); Total Protein 7.7 g/dL (6.3-8.2)
[2024-05-13 10:13] LABS: INR 1.1 (<1.2); Partial Thromboplastin Time 24.7 sec (22.0-30.0); Prothrombin Time 11.5 sec (10.0-12.5)
--- NOTE | 2024-05-13 10:23 | ED ---
General Adult HPI - General Chief complaint: Fall Stated complaint: Fall-Neck pain Time Seen by Provider: 05/13/24 09:25 Source: EMS Mode of arrival: EMS Limitations: altered mental status, physical limitation - History of Present Illness Initial comments: 84-year-old female presents emergency department from independent living facility. Staff went into past the patient's medications and found her on the ground this morning. It appeared that the patient had an episode of emesis. Unknown how long she had been on the ground for. Last known well was greater than 12 hours ago. Patient was complaining of neck pain, right shoulder pain an d left hip pain. According to staff she is normally ANO x 4. Patient appears fatigued with some mild confusion. No lateralizing weakness. Patient denies any chest pain or difficulty breathing. No other alleviating, precipitating or modifying factors - Related Data Home Medications Medication Instructions Recorded Confirmed Acetaminophen Tab [Tylenol] 500 mg PO DAILY 05/13/24 05/13/24 Biotin 5,000 mcg PO DAILY 05/13/24 05/13/24 Bisoprolol-Hctz 5-6.25 mg [Ziac 1 tab PO DAILY 05/13/24 05/13/24 5-6.25 MG] Magnesium 250 mg PO DAILY 05/13/24 05/13/24 Allergies Allergy/AdvReac Type Severity Reaction Status Date / Time Penicillins AdvReac Unknown Verified 05/13/24 10:08 Review of Systems ROS Statement: Those systems with pertinent positive or pertinent negative responses have been documented in the HPI. ROS Other: All systems not noted in ROS Statement are negative. Past Medical History Past Medical History: Coronary Artery Disease (CAD), Chest Pain / Angina, Heart Failure, COPD, CVA/TIA, GERD/Reflux, Hyperlipidemia, Hypertension, Pneumonia Additional Past Medical History / Comment(s): GOUT History of Any Multi-Drug Resistant Organisms: None Reported Past Surgical History: Back Surgery, No Surgical Hx Reported Additional Past Surgical History / Comment(s): breast biopsy Past Anesthesia/Blood Transfusion Reactions: No Reported Reaction Past Psychological History: No Psychological Hx Reported Smoking Status: Unknown if ever smoked Past Alcohol Use History: None Reported Past Drug Use History: None Reported General Exam Limitations: altered mental status, physical limitation General appearance: alert, in no apparent distress Head exam: Present: atraumatic, normocephalic, normal inspection Eye exam: Present: normal appearance, PERRL, EOMI. Absent: scleral icterus, conjunctival injection, periorbital swelling ENT exam: Present: mucous membranes dry Neck exam: Present: normal inspection. Absent: tenderness, meningismus, lymphadenopathy Respiratory exam: Present: normal lung sounds bilaterally. Absent: respiratory distress, wheezes, rales, rhonchi, stridor Cardiovascular Exam: Present: regular rate, normal rhythm, normal heart sounds. Absent: systolic murmur, diastolic murmur, rubs, gallop, clicks GI/Abdominal exam: Present: soft, normal bowel sounds. Absent: distended, tenderness, guarding, rebound, rigid Extremities exam: Present: normal inspection, full ROM, normal capillary refill. Absent: tenderness, pedal edema, joint swelling, calf tenderness Back exam: Present: normal inspection Neurological exam: Present: alert Psychiatric exam: Present: flat affect Course Vital Signs 05/13/24 05/13/24 05/13/24 09:25 10:00 11:00 Temperature 96.9 F L Pulse Rate 58 L 55 L 57 L Respiratory 18 17 14 Rate Blood Pressure 214/97 219/99 214/89 O2 Sat by Pulse 98 98 100 Oximetry 05/13/24 05/13/24 05/13/24 13:00 13:30 14:00 Temperature Pulse Rate 53 L 76 56 L Respiratory 15 16 14 Rate Blood Pressure 200/92 188/85 188/85 O2 Sat by Pulse 99 96 97 Oximetry 05/13/24 05/13/24 05/13/24 14:30 14:45 15:00 Temperature 97.4 F L Pulse Rate 56 L 54 L 59 L Respiratory 15 16 16 Rate Blood Pressure 161/76 161/76 161/76 O2 Sat by Pulse 97 98 97 Oximetry 05/13/24 15:15 Temperature Pulse Rate 55 L Respiratory 16 Rate Blood Pressure 147/86 O2 Sat by Pulse 97 Oximetry Medical Decision Making - Medical Decision Making Was pt. sent in by a medical professional or institution (, PA, NETWORK SUPPORT, urgent care, hospital, or long term...) When possible be specific @ -Patient sent in from assisted living facility Did you speak to anyone other than the patient for history (EMS, parent, family, police, friend...)? What history was obtained from this source @ -Spoke with EMS and the patient's son Did you review nursing and triage notes (agree or disagree)? Why? @ -I reviewed and agree with nursing and triage notes Were old charts reviewed (outside hosp., previous admission, EMS record, old EKG, old radiological studies, urgent care reports/EKG's, long term records)? Report findings @ -No old charts were reviewed Differential Diagnosis (chest pain, altered mental status, abdominal pain women, abdominal pain men, vaginal bleeding, weakness, fever, dyspnea, syncope, headache, dizziness, GI bleed, back pain, seizure, CVA, palpatations, mental health, musculoskeletal)? @ -Differential Weakness: Hypoglycemia, shock, sepsis, hyponatremia, anemia, infection, [place], ETOH, adverse medicine reaction, overdose, stroke, this is not meant to be an all-inclusive list. EKG interpreted by me (3pts min.). @ -Yes and demonstrates sinus bradycardia with a rate of 48. Parable 195. QRS 92. QTc of 459. Inverted T wave in V4 through V6 X-rays interpreted by me (1pt min.). @ -Yes and demonstrates no acute fractures CT interpreted by me (1pt min.). @ -Yes and demonstrates no acute intracranial process U/S interpreted by me (1pt. min.). @ -None done What testing was considered but not performed or refused? (CT, X-rays, U/S, labs)? Why? @ -None What meds were considered but not given or refused? Why? @ -None Did you discuss the management of the patient with other professionals (professionals i.e. , PA, NETWORK SUPPORT, lab, RT, psych nurse, health and social care teacher, dry end operator, teacher, general service officer, manager rn case)? Give summary @ -Spoke with Dr. Liao who will keep the patient overnight Was smoking cessation discussed for >3mins.? @ -No Was critical care preformed (if so, how long)? @ -No Were there social determinants of health that impacted care today? How? (Homelessness, low income, unemployed, alcoholism, drug addiction, transportation, low edu. Level, literacy, decrease access to med. care, [place] [facility], rehab)? @ -No Was there de-escalation of care discussed even if they declined (Discuss DNR or withdrawal of care, Hospice)? DNR status @ -No What co-morbidities impacted this encounter? (DM, HTN, Smoking, COPD, CAD, Cancer, CVA, ARF, Chemo, Hep., AIDS, mental health diagnosis, sleep apnea, m orbid obesity)? @ -Dementia Was patient admitted / discharged? Hospital course, mention meds given and route, prescriptions, significant lab abnormalities, going to OR and other pertinent info. @ -Upon arrival patient seen and evaluated in room 2. Thorough history and physical exam was performed. IV access was established. Laboratory studies were conducted. Patient had CT and x-rays performed all of which demonstrate no acute injuries. C-collar was removed. I spoke with family. They do feel that she is somewhat altered and therefore I do recommend admission. Spoke with Dr. Liao who agreed to admit the patient Undiagnosed new problem with uncertain prognosis? @ -No Drug Therapy requiring intensive monitoring for toxicity (Heparin, Nitro, Insulin, Cardizem)? @ -No Were any procedures done? @ -No Diagnosis/symptom? @ -Acute encephalopathy, found down, acute neck pain Acute, or Chronic, or Acute on Chronic? @ -Acute Uncomplicated (without systemic symptoms) or Complicated (systemic symptoms)? @ -Complicated Side effects of treatment? @ -No Exacerbation, Progression, or Severe Exacerbation? @ -No Poses a threat to life or bodily function? How? (Chest pain, [place], NJ, pneumonia, PE, COPD, DKA, ARF, appy, cholecystitis, CVA, Diverticulitis, Homicidal, Suicidal, threat to staff... and all critical care pts) @ -No - Lab Data Result diagrams: 05/14/24 07:45 05/14/24 07:45 Lab Results 05/13/24 05/13/24 05/13/24 Range/Units 09:50 09:50 09:50 WBC 7.8 (3.8-10.6) k/uL RBC 4.30 (3.80-5.40) m/uL Hgb 12.6 (11.4-16.0) gm/dL Hct 40.0 (34.0-46.0) % MCV 93.1 (80.0-100.0) fL MCH 29.2 (25.0-35.0) pg MCHC 31.4 (31.0-37.0) g/dL RDW 13.4 (11.5-15.5) % Plt Count 208 (150-450) k/uL MPV 8.4 Neutrophils % 69 % Lymphocytes % 21 % Monocytes % 7 % Eosinophils % 2 % Basophils % 0 % Neutrophils # 5.4 (1.3-7.7) k/uL Lymphocytes # 1.7 (1.0-4.8) k/uL Monocytes # 0.5 (0-1.0) k/uL Eosinophils # 0.1 (0-0.7) k/uL Basophils # 0.0 (0-0.2) k/uL PT 11.5 (10.0-12.5) sec INR 1.1 (<1.2) APTT 24.7 (22.0-30.0) sec Sodium 135 L (137-145) mmol/L Potassium 4.3 (3.5-5.1) mmol/L Chloride 100 (98-107) mmol/L Carbon Dioxide 26 (22-30) mmol/L Anion Gap 9 mmol/L BUN 27 H (7-17) mg/dL Creatinine 1.17 H (0.52-1.04) mg/dL Est GFR (CKD-EPI)AfAm 49 (>60 ml/min/1.73 sqM) Est GFR (CKD-EPI)NonAf 42 (>60 ml/min/1.73 sqM) Glucose 98 (74-99) mg/dL POC Glucose (mg/dL) (70-110) mg/dL POC Glu Cardiology Specialist ID Calcium 9.6 (8.4-10.2) mg/dL Total Bilirubin 1.2 (0.2-1.3) mg/dL AST 39 H (14-36) U/L ALT 13 (4-34) U/L Alkaline Phosphatase 59 (38-126) U/L Creatine Kinase 674 H (30-135) U/L Troponin I (0.000-0.034) ng/mL Total Protein 7.7 (6.3-8.2) g/dL Albumin 4.5 (3.5-5.0) g/dL Serum Alcohol <10 mg/dL 05/13/24 05/13/24 Range/Units 09:50 09:54 WBC (3.8-10.6) k/uL RBC (3.80-5.40) m/uL Hgb (11.4-16.0) gm/dL Hct (34.0-46.0) % MCV (80.0-100.0) fL MCH (25.0-35.0) pg MCHC (31.0-37.0) g/dL RDW (11.5-15.5) % Plt Count (150-450) k/uL MPV Neutrophils % % Lymphocytes % % Monocytes % % Eosinophils % % Basophils % % Neutrophils # (1.3-7.7) k/uL Lymphocytes # (1.0-4.8) k/uL Monocytes # (0-1.0) k/uL Eosinophils # (0-0.7) k/uL Basophils # (0-0.2) k/uL PT (10.0-12.5) sec INR (<1.2) APTT (22.0-30.0) sec Sodium (137-145) mmol/L Potassium (3.5-5.1) mmol/L Chloride (98-107) mmol/L Carbon Dioxide (22-30) mmol/L Anion Gap mmol/L BUN (7-17) mg/dL Creatinine (0.52-1.04) mg/dL Est GFR (CKD-EPI)AfAm (>60 ml/min/1.73 sqM) Est GFR (CKD-EPI)NonAf (>60 ml/min/1.73 sqM) Glucose (74-99) mg/dL POC Glucose (mg/dL) 85 (70-110) mg/dL POC Glu Cardiology Specialist ID [place] [facility] Calcium (8.4-10.2) mg/dL Total Bilirubin (0.2-1.3) mg/dL AST (14-36) U/L ALT (4-34) U/L Alkaline Phosphatase (38-126) U/L Creatine Kinase (30-135) U/L Troponin I <0.012 (0.000-0.034) ng/mL Total Protein (6.3-8.2) g/dL Albumin (3.5-5.0) g/dL Serum Alcohol mg/dL Disposition Clinical Impression: Fall, Encephalopathy, Left hip pain Disposition: ADMITTED IP TO THIS [facility] Condition: Stable Is patient prescribed a controlled substance at d/c from ED?: No Time of Disposition: 12:57 Decision to Admit Reason: Admit from EC Decision Date: 05/13/24 Decision Time: 12:57
--- NOTE | 2024-05-13 10:37 | CT ---
EXAMINATION TYPE: CT brain cspine wo con CT DLP: 1237.6 mGycm, Automated exposure control for dose reduction was used. DATE OF EXAM: 05/13/2024 10:27 AM COMPARISON: CT brain 11/22/2022, CT Brain and cspine 01/16/2019. CLINICAL INDICATION:Female, 84 years old with history of fall; Altered mental status TECHNIQUE: Brain: Multiple axial CT images of the brain were obtained without IV contrast. Cspine: Axial CT images from the skull base to the inferior aspect of T2 we obtained without intraven ous contrast. Coronal and sagittal reformatted images were also reviewed. FINDINGS: Brain: Extra-axial spaces: No abnormal extra-axial fluid collections. Ventricular system: Within normal limits Cerebral parenchyma: Mild cerebral atrophy. No acute intraparenchymal hemorrhage or mass effect. The berrios-white junction is well differentiated. Scattered hypoattenuating areas are seen within the whit e matter. Cerebellum: Unremarkable. Mass effect: No evidence of midline shift. Intracranial vasculature: Atherosclerotic calcifications of the intracranial vessels. Soft tissues: Normal. Calvarium/osseous structures: No depressed skull fracture. Paranasal sinuses and mastoid air cells: Clear. Visualized orbits: Bilateral aphakia Cervical spine: Fracture: None. Osseous structures: Unremarkable Vertebral alignment: Within normal limits. Spinal canal/Neural Foramina: No evidence of significant spinal canal narrowing. Facet joint uncovert ebral joint arthropathy scattered throughout the cervical spine with varying degrees of neural forami nal stenosis. Neck soft tissues: Prevertebral soft tissues are within normal limits. Other: The airway is patent. The lung apices are clear. Bilateral carotid bulb calcifications. Puncta te calcifications within both parotid glands. 8 millimeter hypodense nodule within the right thyroid lobe with additional smaller nodules identified. IMPRESSION: 1. No acute intracranial process. 2. Nonspecific white matter changes, likely secondary to chronic small vessel ischemic disease. 3. No evidence of cervical spine fracture. 4. Mild to moderate multilevel facet arthropathy.
--- NOTE | 2024-05-13 11:58 | XR ---
EXAMINATION TYPE: XR chest 2V DATE OF EXAM: 05/13/2024 COMPARISON: 12/22/2023 TECHNIQUE: PA and lateral views submitted. HISTORY: Cough FINDINGS: The lungs are clear and there is no pneumothorax, pleural effusion, or focal pneumonia. Heart size stable with no overt failure. Osseous structures demonstrate hypertrophic and degenerative changes of the spine. Scoliotic curvature of the spine with ectasia of the thoracic aorta. Limited inspiration. Generalized demineralization. AC joint arthropathy. Biapical pleural thickening. IMPRESSION: 1. No acute process.
--- NOTE | 2024-05-13 12:00 | XR ---
EXAMINATION TYPE: XR humerus RT DATE OF EXAM: 05/13/2024 COMPARISON: NONE HISTORY: Pain TECHNIQUE: 2 views submitted. FINDINGS: Generalized demineralization. Epicondylar spurring noted. Mild AC joint hypertrophic arthropathy. Oss eous structures intact. IMPRESSION: 1. No acute fracture or dislocation.
--- NOTE | 2024-05-13 12:03 | XR ---
EXAMINATION TYPE: XR pelvis AP view DATE OF EXAM: 05/13/2024 COMPARISON: NONE HISTORY: Pain Findings: There is tubing overlying the left pelvis. There is severe left hip arthropathy and moderate hypertro phic arthropathy of the right hip. Tubing obscures portions of the left pubic rami. Generalized demin eralization. Vascular calcification. Arthropathy of the SI joints. Sacral struts are symmetric. Degen erative change lower lumbar spine. IMPRESSION: 1. Severe left hip arthropathy with complete loss of joint space. Osteonecrosis in the differential d iagnosis. 2. Limited assessment for a fracture due to internal rotation of the hip replacement. If there is hig h clinical concern or difficulty with weightbearing would recommend CT scan.
[2024-05-13] MEDS ORDERED: ACETAMINOPHEN TAB 325 MG TAB PO PRN (12:57)
[2024-05-13] MEDS ORDERED: NALOXONE 0.4 MG/ML 1 ML VIAL IV PRN (12:57)
[2024-05-13] MEDS: SODIUM CHLORIDE 0.9% 1,000 ML IV SCH (13:03)
[2024-05-13] MEDS: BISOPROLOL-HCTZ 5-6.25 MG 1 EACH TAB PO SCH (13:03)
[2024-05-14 04:41] LABS: Appearance,Urine Clear (Clear); Bacteria,Urine Few /hpf; Bilirubin,Urine Negative (Negative); Blood,Urine Negative (Negative); Color,Urine Colorless; Glucose,Urine (UA) Negative (Negative); Hyaline Casts,Urine 8 /lpf (0-2); Ketones,Urine Negative (Negative); Leukocyte Esterase,Urine Negative (Negative); Mucus,Urine Rare /hpf; Nitrite,Urine Negative (Negative); Protein,Urine 1+ (Negative); RBC,Urine 2 /hpf (0-5); Specific Gravity,Urine 1.012 (1.001-1.035); Squamous Epithelial Cell,Urine 1 /hpf (0-4); Urobilinogen,Urine <2.0 mg/dL (<2.0); WBC,Urine 2 /hpf (0-5)
[2024-05-14 04:46] LABS: Amphetamine Screen,Urine Not Detected (NotDetected); Barbiturate Screen,Urine Not Detected (NotDetected); Benzodiazepines Screen,Urine Not Detected (NotDetected); Cocaine Screen,Urine Not Detected (NotDetected); Methadone Screen, Urine Not Detected (NotDetected); Opiate Screen,Urine Detected (NotDetected); Phencyclidine Screen,Urine Not Detected (NotDetected); Tricyclic Antidepressant,Urine Not Detected (NotDetected); Urn Cannabinoid Scrn Not Detected (NotDetected)
[2024-05-14 04:47] LABS: Oxycodone Screen, Urine Not Detected (NotDetected)
--- NOTE | 2024-05-14 08:41 | P.HPIM ---
History of Present Illness H&P Date: 05/14/24 This is an 84-year-old female who presented to the emergency department from her independent living facility after being found on the ground yesterday morning. Staff had found patient on the ground with some emesis present. She was last seen by staff more than 12 hours prior. Patient reports neck pain, right shoulder pain and left hip pain. Imaging was negative except for arthritis. Yesterday in the ER patient had some mild confusion. Patient denies any chest pain or difficulty breathing. This morning patient is seen sitting up in bed eating breakfast. She is alert and oriented x 4 and back to her baseline. She is unable to remember what happened prior to her fall yesterday. Daughter is present this morning. Further medical history as noted below. Review of Systems Constitutional: Reports weakness, Denies chills, Denies fever Cardiovascular: Denies chest pain, Denies dyspnea on exertion Respiratory: Denies dyspnea Gastrointestinal: Denies abdominal pain, Denies nausea, Denies vomiting Musculoskeletal: Denies arm numbness/tingling, Denies leg numbness/tingling Musculoskeletal: right: shoulder pain, left: hip pain Neurological: Reports weakness, Denies headaches Past Medical History Past Medical History: Coronary Artery Disease (CAD), Chest Pain / Angina, Heart Failure, COPD, CVA/TIA, GERD/Reflux, Hyperlipidemia, Hypertension, Pneumonia Additional Past Medical History / Comment(s): GOUT. granddaughter "Desiree chaves pt has dementia History of Any Multi-Drug Resistant Organisms: None Reported Past Surgical History: Back Surgery, No Surgical Hx Reported Additional Past Surgical History / Comment(s): breast biopsy Past Anesthesia/Blood Transfusion Reactions: No Reported Reaction Past Psychological History: No Psychological Hx Reported Smoking Status: Never smoker Past Alcohol Use History: None Reported Past Drug Use History: None Reported Medications and Allergies Home Medications Medication Instructions Recorded Confirmed Type Acetaminophen Tab [Tylenol Tab] 500 mg PO DAILY 05/13/24 05/13/24 History Biotin 5,000 mcg PO DAILY 05/13/24 05/13/24 History Bisoprolol-Hctz 5-6.25 mg [Ziac 1 tab PO DAILY 05/13/24 05/13/24 History 5-6.25 MG] Magnesium 250 mg PO DAILY 05/13/24 05/13/24 History Allergies Allergy/AdvReac Type Severity Reaction Status Date / Time Penicillins AdvReac Unknown Verified 05/13/24 10:08 Physical Exam Vitals: Vital Signs Temp Pulse Pulse Resp BP BP Pulse Ox 05/14/24 07:50 98.3 F 50 L 15 182/71 100 05/14/24 03:51 98.4 F 53 L 18 197/85 100 05/13/24 20:00 61 16 05/13/24 18:21 99 F 61 16 141/73 99 05/13/24 16:00 16 05/13/24 15:15 55 L 16 147/86 97 05/13/24 15:00 59 L 16 161/76 97 05/13/24 14:45 54 L 16 161/76 98 05/13/24 14:30 97.4 F L 56 L 15 161/76 97 05/13/24 14:00 56 L 14 188/85 97 05/13/24 13:30 76 16 188/85 96 05/13/24 13:00 53 L 15 200/92 99 05/13/24 11:00 57 L 14 214/89 100 05/13/24 10:00 55 L 17 219/99 98 05/13/24 09:25 96.9 F L 58 L 18 214/97 98 Intake and Output 05/13/24 05/14/24 05/14/24 22:59 06:59 14:59 Other: Voiding Method Bedside Commode Diaper # Voids 2 2 - Constitutional General appearance: cooperative, no acute distress - EENT Eyes: PERRLA - Neck Neck: no lymphadenopathy, normal ROM, no rigidity - Respiratory Respiratory: bilateral: CTA - Cardiovascular Rhythm: regular Heart sounds: normal: S1, S2 - Gastrointestinal General gastrointestinal: soft, no tenderness - Integumentary Integumentary: normal, normal turgor - Musculoskeletal Musculoskeletal: generalized weakness - Psychiatric Psychiatric: A&O x's 3 Results CBC & Chem 7: 05/13/24 09:50 05/13/24 09:50 Labs: Abnormal Lab Results - Last 24 Hours (Table) 05/13/24 05/14/24 05/14/24 Range/Units 09:50 03:55 03:55 Sodium 135 L (137-145) mmol/L BUN 27 H (7-17) mg/dL Creatinine 1.17 H (0.52-1.04) mg/dL AST 39 H (14-36) U/L Creatine Kinase 674 H (30-135) U/L Urine Protein 1+ H (Negative) Urine Bacteria Few H (None) /hpf Hyaline Casts 8 H (0-2) /lpf Urine Mucus Rare H (None) /hpf Urine Opiates Screen Detected H (NotDetected) Thrombosis Risk Factor Assmnt - Choose All That Apply Any of the Below Risk Factors Present?: Yes Each Factor Represents 1 point: Abnormal pulmonary function (COPD) Other Risk Factors: Yes Each Risk Factor Represents 3 Points: Age 75 years or older Other congenital or acquired thrombophilia - If yes, enter type in comment: No Thrombosis Risk Factor Assessment Total Risk Factor Score: 4 Thrombosis Risk Factor Assessment Level: Moderate Risk Assessment and Plan (1) Fall Current Visit: Yes Status: Acute Code(s): W19.XXXA - UNSPECIFIED FALL, INITIAL ENCOUNTER SNOMED Code(s): 3825928 (2) Left hip pain Current Visit: Yes Status: Acute Code(s): M25.552 - PAIN IN LEFT HIP SNOMED Code(s): 29617748 (3) Hypertension Current Visit: Yes Status: Acute Code(s): I10 - ESSENTIAL (PRIMARY) HYPERTENSION SNOMED Code(s): 00743074 (4) Arthritis Current Visit: Yes Status: Acute Code(s): M19.90 - UNSPECIFIED OSTEOARTHRITIS, UNSPECIFIED SITE SNOMED Code(s): 3141275 Plan: Continue home medications. Consult to PT and OT for evaluation. Possible discharge tomorrow. Patient seen and evaluated by nurse practitioner, physician in agreement with plan
[2024-05-14] MEDS ORDERED: NON FORMULARY DRUG (Biotin [Biotin] 5,000 MCG Tab.Chew) PO SCH (09:00)
[2024-05-14] MEDS: ACETAMINOPHEN TAB 500 MG TAB PO SCH (10:08)
[2024-05-14] MEDS: amLODIPine 5 MG TAB PO SCH (10:09)
[2024-05-14] MEDS: hydroCHLOROthiazide 12.5 MG CAP PO SCH (10:09)
[2024-05-14] MEDS: MAGNESIUM OXIDE 400 MG TAB PO SCH (10:09)
[2024-05-14 11:40] LABS: Basophils # (A) 0.03 X 10*3/uL (0.00-0.10); Basophils % (A) 0.5 %; Eosinophils # (A) 0.14 X 10*3/uL (0.04-0.35); Eosinophils % (A) 2.5 %; HCT 31.5 % (37.2-46.3); HGB 9.7 g/dL (12.0-15.0); Lymphocytes # (A) 1.55 X 10*3/uL (0.90-5.00); Lymphocytes % (A) 27.6 %; MCH 28.9 pg (27.0-32.0); MCHC 30.8 g/dL (32.0-37.0); MCV 93.8 FL (80.0-97.0); Mean Platelet Volume 11.4 FL (9.5-12.2); Monocytes # (A) 0.59 X 10*3/uL (0.20-1.00); Monocytes % (A) 10.5 %; NRBC Per 100 WBC 0 X 10*3/uL (0.00-0.01); Neutrophils # (A) 3.29 X 10*3/uL (1.80-7.70); Neutrophils % (A) 58.7 %; Platelet Count 186 X 10*3/uL (140-440); RBC 3.36 X 10*6/uL (4.10-5.20); RDW 13.3 % (11.5-14.5); WBC 5.61 X 10*3/uL (4.50-10.00)
[2024-05-14 11:58] LABS: Blood Urea Nitrogen 31.2 mg/dL (9.0-27.0); Calcium 8.9 mg/dL (8.7-10.3); Carbon Dioxide 28.7 mmol/L (21.6-31.8); Chloride 99 mmol/L (96-109); Glucose 91 mg/dL (70-110); Potassium 3.7 mmol/L (3.5-5.5); Sodium 139 mmol/L (135-145)
[2024-05-15 02:38] VITALS: RESP 16
[2024-05-15 07:31] VITALS: BP 189/75; PULSE 51; TEMP 97.9
--- NOTE | 2024-05-15 08:56 | P.DS ---
Providers Date of admission: 05/13/24 12:57 Attending physician: Blaise Liao Primary care physician: Blaise Liao Hospital Course: Patient was admitted for generalized weakness after having fall and found on the floor at her assisted living home. She was stabilized. No dizziness PT/OT were consulted. She will have therapy while she is here but she is tolerating diet no voiding difficulties. It is noted that she has significant left hip degenerative joint disease. We will discharge in stable condition and she has appropriate help from her family. Consider orthopedic referral as an outpatient. Patient Condition at Discharge: Stable Plan - Discharge Summary New Discharge Prescriptions: Continue Biotin 5,000 mcg PO DAILY Acetaminophen Tab [Tylenol] 500 mg PO DAILY Magnesium 250 mg PO DAILY Bisoprolol-Hctz 5-6.25 mg [Ziac 5-6.25 MG] 1 tab PO DAILY Discharge Medication List Acetaminophen Tab [Tylenol] 500 mg PO DAILY 05/13/24 [History] Biotin 5,000 mcg PO DAILY 05/13/24 [History] Bisoprolol-Hctz 5-6.25 mg [Ziac 5-6.25 MG] 1 tab PO DAILY 05/13/24 [History] Magnesium 250 mg PO DAILY 05/13/24 [History] Follow up Appointment(s)/Referral(s): Blaise Liao MD [Primary Care Provider] - 1-2 days
== END 2024-05-15 12:26 | disposition home or self-care (01) ==
LOC: EC 09:23 → 6NMEDSUR 12:57
PROVIDERS: ADMIT Family Medicine; ATTEND Family Medicine
DX: R53.1 Weakness (principal); M54.2 Cervicalgia; I25.10 Atherosclerotic heart disease of native coronary artery without angina pectoris; I50.9 Heart failure, unspecified; M16.12 Unilateral primary osteoarthritis, left hip; I11.0 Hypertensive heart disease with heart failure; F03.90 Unspecified dementia, unspecified severity, without behavioral disturbance, psychotic disturbance, mood disturbance, and anxiety; W19.XXXA Unspecified fall, initial encounter
CPT/HCPCS: 96365; 99285; 36415; 93005; 97161; 97166; 80053; 80048; 82550; 84484; 85025 ×2; 85610; 85730; 81001; 80306; 72170; 73060; 71046; 72125; 70450; G0378 ×3; G0480; J2270; 80320

== ENCOUNTER 2024-07-09 17:30 | Observation (INO) | payer MEDICARE, OTHER ==
[2024-07-09] MEDS: hydrALAZINE HCL 20 MG/ML 1 ML VIAL IVP STA ×2 (18:27→20:05)
[2024-07-09 18:40] LABS: Basophils % (A) 1 %; Eosinophils # (A) 0.2 k/uL (0-0.7); Eosinophils % (A) 4 %; HGB 10.5 gm/dL (11.4-16.0); Lymphocytes # (A) 1.7 k/uL (1.0-4.8); Lymphocytes % (A) 31 %; MCH 30.5 pg (25.0-35.0); MCHC 32.9 g/dL (31.0-37.0); MCV 92.9 fL (80.0-100.0); Mean Platelet Volume 8.2; Monocytes # (A) 0.4 k/uL (0-1.0); Monocytes % (A) 7 %; Neutrophils % (A) 55 %; Platelet Count 189 k/uL (150-450); RBC 3.44 m/uL (3.80-5.40); RDW 13.6 % (11.5-15.5); WBC 5.5 k/uL (3.8-10.6)
[2024-07-09 18:56] LABS: ALT 13 U/L (4-34); African American GFR (CKD) 45 (>60 ml/min/1.73 sqM); Albumin 4.5 g/dL (3.5-5.0); Anion Gap 6 mmol/L; Blood Urea Nitrogen 37 mg/dL (7-17); Calcium 9.4 mg/dL (8.4-10.2); Carbon Dioxide 27 mmol/L (22-30); Chloride 101 mmol/L (98-107); Glucose 86 mg/dL (74-99); Non-African American GFR(CKD) 39 (>60 ml/min/1.73 sqM); Sodium 134 mmol/L (137-145); Total Bilirubin 0.8 mg/dL (0.2-1.3); Total Protein 7.6 g/dL (6.3-8.2)
[2024-07-09 19:00] LABS: AST 36 U/L (14-36); Alkaline Phosphatase 44 U/L (38-126); Potassium 4.7 mmol/L (3.5-5.1)
[2024-07-09 19:04] LABS: NT-Pro-B-Type Natriuretic Pept 3610 pg/mL
--- NOTE | 2024-07-09 20:33 | US ---
EXAMINATION TYPE: US venous doppler duplex LE RT DATE OF EXAM: 07/09/2024 5:51 PM COMPARISON: 2018 US CLINICAL INDICATION: Female, 84 years old with history of swelling; Patient states swelling in leg. n o hx dvt. not on thinners SIDE PERFORMED: Right TECHNIQUE: The lower extremity deep venous system is examined utilizing real time linear array sonog ozzy with graded compression, doppler sonography and color-flow sonography. VESSELS IMAGED: Common Femoral Vein Deep Femoral Vein Greater Saphenous Vein * Femoral Vein Popliteal Vein Small Saphenous Vein * Proximal Calf Veins (* superficial vessels) Right Leg: Appears negative for dvt as best seen. There is a 3.4 x 0.6 x 2.0cm anechoic area seen within the popliteal fossa. This can be compatible wi th a popliteal cyst. IMPRESSION: 1. Right lower extremity ultrasound negative for deep venous thrombosis. 2. Right Popliteal cyst
--- NOTE | 2024-07-09 20:41 | XR ---
EXAMINATION TYPE: XR chest 2V DATE OF EXAM: 07/09/2024 COMPARISON: 05/13/2024 INDICATION: Short of breath TECHNIQUE: Single frontal view of the chest is obtained. FINDINGS: The heart size is somewhat prominent. The pulmonary vasculature is normal. The lungs are clear. Scoliosis is present IMPRESSION: 1. Cardiomegaly. 2. Scoliosis
--- NOTE | 2024-07-09 21:07 | ED ---
Extremity Problem HPI - General Chief complaint: Extremity Problem,Nontraumatic Stated complaint: HTN Time Seen by Provider: 07/09/24 17:39 Source: family Mode of arrival: ambulatory Limitations: no limitations - History of Present Illness Initial comments: 54-year-old female brought in by her son with chief complaint of lower extremity swelling. Patient has bilateral lower extremity swelling but the right leg is significantly worse than the left. He is also concerned that her blood pressure is quite elevated. He reports that his brother has been making food for her that is high in sodium. Patient does admit to some occasional chest pain. He reports that the patient has also appeared a little winded recently. No cough congestion or sore throat. No fevers. No headache or dizziness. No nausea vomiting or abdominal pain. - Related Data Home Medications Medication Instructions Recorded Confirmed Acetaminophen Tab [Tylenol] 500 mg PO DAILY 05/13/24 05/13/24 Biotin 5,000 mcg PO DAILY 05/13/24 05/13/24 Bisoprolol-Hctz 5-6.25 mg [Ziac 1 tab PO DAILY 05/13/24 05/13/24 5-6.25 MG] Magnesium 250 mg PO DAILY 05/13/24 05/13/24 Allergies Allergy/AdvReac Type Severity Reaction Status Date / Time Penicillins AdvReac Unknown Verified 07/09/24 17:36 Review of Systems ROS Statement: Those systems with pertinent positive or pertinent negative responses have been documented in the HPI. ROS Other: All systems not noted in ROS Statement are negative. Past Medical History Past Medical History: Coronary Artery Disease (CAD), Chest Pain / Angina, Heart Failure, COPD, CVA/TIA, GERD/Reflux, Hyperlipidemia, Hypertension, Pneumonia Additional Past Medical History / Comment(s): GOUT History of Any Multi-Drug Resistant Organisms: None Reported Past Surgical History: Back Surgery, No Surgical Hx Reported Additional Past Surgical History / Comment(s): breast biopsy Past Anesthesia/Blood Transfusion Reactions: No Reported Reaction Past Psychological History: No Psychological Hx Reported Smoking Status: Unknown if ever smoked Past Alcohol Use History: None Reported Past Drug Use History: None Reported General Exam Limitations: no limitations General appearance: alert, in no apparent distress Head exam: Present: atraumatic, normocephalic Eye exam: Present: normal appearance, EOMI Neck exam: Present: normal inspection. Absent: meningismus Respiratory exam: Present: normal lung sounds bilaterally. Absent: respiratory distress, wheezes, rales, rhonchi, stridor Cardiovascular Exam: Present: regular rate, normal rhythm, normal heart sounds. Absent: systolic murmur, diastolic murmur, rubs, gallop, clicks Extremities exam: Present: pedal edema Neurological exam: Present: alert, oriented X3 Psychiatric exam: Present: normal affect, normal mood Skin exam: Present: warm, dry Course Vital Signs 07/09/24 07/09/24 07/09/24 17:34 18:05 18:14 Temperature 97.5 F L Pulse Rate 52 L 53 L Pulse Rate [ 53 L Pulse Oximetery ] Respiratory 18 16 Rate Blood Pressure 215/77 196/80 O2 Sat by Pulse 100 99 Oximetry 07/09/24 07/09/24 07/09/24 18:57 20:06 20:22 Temperature Pulse Rate 61 54 L 61 Pulse Rate [ Pulse Oximetery ] Respiratory 16 18 18 Rate Blood Pressure 190/78 202/99 185/76 O2 Sat by Pulse 98 98 97 Oximetry 07/09/24 07/09/24 07/09/24 21:00 21:58 22:00 Temperature Pulse Rate 51 L 84 54 L Pulse Rate [ Pulse Oximetery ] Respiratory 18 18 18 Rate Blood Pressure 167/62 140/75 157/65 O2 Sat by Pulse 99 97 99 Oximetry 07/09/24 23:00 Temperature Pulse Rate 52 L Pulse Rate [ Pulse Oximetery ] Respiratory 18 Rate Blood Pressure 162/65 O2 Sat by Pulse 99 Oximetry Medical Decision Making - Medical Decision Making Was pt. sent in by a medical professional or institution (, PA, [employer], urgent care, hospital, or fpc...) When possible be specific @ -No Did you speak to anyone other than the patient for history (EMS, parent, family, police, friend...)? What history was obtained from this source @ -History supplemented by her son Did you review nursing and triage notes (agree or disagree)? Why? @ -I reviewed and agree with nursing and triage notes Were old charts reviewed (outside hosp., previous admission, EMS record, old EKG, old radiological studies, urgent care reports/EKG's, fpc records)? Report findings @ -Reviewed previous EKG Differential Diagnosis (chest pain, altered mental status, abdominal pain women, abdominal pain men, vaginal bleeding, weakness, fever, dyspnea, syncope, headache, dizziness, GI bleed, back pain, seizure, CVA, palpatations, mental health, musculoskeletal)? @ -MDM Differential Chest Pain: Stable Angina, Unstable Angina, STEMI, NSTEMI Aortic Dissection, Pneumothorax, Musculoskeletal, Esophageal Spasm GERD, Cholecystitis, Pancreatitis, Zoster This is not meant to be an all-inclusive list. EKG interpreted by me (3pts min.). @ -EKG shows sinus bradycardia with first-degree AV block. Ventricular rate 52. [place] interval 211. QRS 89. QT 475. QTc 456. No acute change from previous EKG. X-rays interpreted by me (1pt min.). @ -Chest x-ray shows cardiomegaly and scoliosis CT interpreted by me (1pt min.). @ -None done U/S interpreted by me (1pt. min.). @ -Ultrasound shows a right lower extremity ultrasound negative for DVT. Right popliteal cyst. What testing was considered but not performed or refused? (CT, X-rays, U/S, labs)? Why? @ -None What meds were considered but not given or refused? Why? @ -None Did you discuss the management of the patient with other professionals (farida cortez i.e. , PA, [employer], lab, RT, psych nurse, licensed social worker, hot plate press operator, teacher, chief informatics officer, shoe parts caser)? Give summary @ -Dr. Liao accepts admission Was smoking cessation discussed for >3mins.? @ -No Was critical care preformed (if so, how long)? @ -No Were there social determinants of health that impacted care today? How? (Homelessness, low income, unemployed, alcoholism, drug addiction, transportation, low edu. Level, literacy, decrease access to med. care, shelter, rehab)? @ -No Was there de-escalation of care discussed even if they declined (Discuss DNR or withdrawal of care, Hospice)? DNR status @ -No What co-morbidities impacted this encounter? (DM, HTN, Smoking, COPD, CAD, C ancer, CVA, ARF, Chemo, Hep., AIDS, mental health diagnosis, sleep apnea, morbid obesity)? @ -None Was patient admitted / discharged? Hospital course, mention meds given and route, prescriptions, significant lab abnormalities, going to OR and other pertinent info. @ -84-year-old female presenting with chief complaint of lower extremity swelling. While obtaining the history she does admit to some occasional chest pain. EKG shows sinus bradycardia with no obvious change from previous. BUN 37 creatinine 1.25, consistent with patient's baseline. Negative troponin. BNP 3610 however the chest x-ray shows no evidence of effusion. Ultrasound is negative for DVT. Patient is hypertensive and required 2 doses of hydralazine. Given chest pain we will admit to trend the patient's troponins. Patient and her son are agreeable with this plan. I discussed this case with my attending Dr. Lai Undiagnosed new problem with uncertain prognosis? @ -No Drug Therapy requiring intensive monitoring for toxicity (Heparin, Nitro, Insulin, Cardizem)? @ -No Were any procedures done? @ -No Diagnosis/symptom? @ -Chest pain Acute, or Chronic, or Acute on Chronic? @ -Acute Uncomplicated (without systemic symptoms) or Complicated (systemic symptoms)? @ -Complicated Side effects of treatment? @ -No Exacerbation, Progression, or Severe Exacerbation? @ -No Poses a threat to life or bodily function? How? (Chest pain, [place], CA, pneumonia, PE, COPD, DKA, ARF, appy, cholecystitis, CVA, Diverticulitis, Homicidal, Suicidal, threat to staff... and all critical care pts) @ -yes - Lab Data Result diagrams: 07/09/24 18:20 07/09/24 18:20 Lab Results 07/09/24 07/09/24 07/09/24 Range/Units 18:20 18:20 18:20 WBC 5.5 (3.8-10.6) k/uL RBC 3.44 L (3.80-5.40) m/uL Hgb 10.5 L (11.4-16.0) gm/dL Hct 32.0 L (34.0-46.0) % MCV 92.9 (80.0-100.0) fL MCH 30.5 (25.0-35.0) pg MCHC 32.9 (31.0-37.0) g/dL RDW 13.6 (11.5-15.5) % Plt Count 189 (150-450) k/uL MPV 8.2 Neutrophils % 55 % Lymphocytes % 31 % Monocytes % 7 % Eosinophils % 4 % Basophils % 1 % Neutrophils # 3.0 (1.3-7.7) k/uL Lymphocytes # 1.7 (1.0-4.8) k/uL Monocytes # 0.4 (0-1.0) k/uL Eosinophils # 0.2 (0-0.7) k/uL Basophils # 0.0 (0-0.2) k/uL Sodium 134 L (137-145) mmol/L Potassium 4.7 (3.5-5.1) mmol/L Chloride 101 (98-107) mmol/L Carbon Dioxide 27 (22-30) mmol/L Anion Gap 6 mmol/L BUN 37 H (7-17) mg/dL Creatinine 1.25 H (0.52-1.04) mg/dL Est GFR (CKD-EPI)AfAm 45 (>60 ml/min/1.73 sqM) Est GFR (CKD-EPI)NonAf 39 (>60 ml/min/1.73 sqM) Glucose 86 (74-99) mg/dL Calcium 9.4 (8.4-10.2) mg/dL Total Bilirubin 0.8 (0.2-1.3) mg/dL AST 36 (14-36) U/L ALT 13 (4-34) U/L Alkaline Phosphatase 44 (38-126) U/L Troponin I <0.012 (0.000-0.034) ng/mL NT-Pro-B Natriuret Pep 3610 pg/mL Total Protein 7.6 (6.3-8.2) g/dL Albumin 4.5 (3.5-5.0) g/dL Disposition Clinical Impression: Chest pain Disposition: ADMITTED IP TO THIS HOSP Condition: Fair Time of Disposition: 21:17
[2024-07-09] MEDS ORDERED: NALOXONE 0.4 MG/ML 1 ML VIAL IV PRN (21:11)
[2024-07-10] MEDS: hydrALAZINE HCL 20 MG/ML 1 ML VIAL IVP STA ×2 (03:59→21:33)
[2024-07-10] MEDS: cloNIDine HCL 0.1 MG TAB PO STA (03:59)
--- NOTE | 2024-07-10 08:06 | P.HPIM ---
History of Present Illness H&P Date: 07/10/24 Chief Complaint: Lower extremity edema. Patient is an 84-year-old black female with known history of hypertension and increasing frailty. Her family and I have a very good relationship and she has her son to help her. She has been complaining of weakness and has fallen in the last several days. The son brought her in because of lower extremity edema and she complained of intermittent chest pain. No significant nausea or diaphoresis stated. Blood pressure is elevated. Understanding history of hypertensive urgency. The patient is able to answer questions appropriately and does not look in any type of respiratory distress. No voiding difficulty stated. Troponin is negative. Review of Systems Constitutional: Denies chills, Denies fever Eyes: denies blurred vision, denies pain Cardiovascular: Reports as per HPI, Reports leg edema Gastrointestinal: Denies abdominal pain, Denies diarrhea, Denies nausea, Denies vomiting Menstruation: Reports as per HPI Musculoskeletal: Denies myalgias Past Medical History Past Medical History: Coronary Artery Disease (CAD), Chest Pain / Angina, Heart Failure, COPD, CVA/TIA, GERD/Reflux, Hyperlipidemia, Hypertension, Pneumonia Additional Past Medical History / Comment(s): GOUT History of Any Multi-Drug Resistant Organisms: None Reported Past Surgical History: Back Surgery, No Surgical Hx Reported Additional Past Surgical History / Comment(s): breast biopsy Past Anesthesia/Blood Transfusion Reactions: No Reported Reaction Past Psychological History: No Psychological Hx Reported Smoking Status: Unknown if ever smoked Past Alcohol Use History: None Reported Past Drug Use History: None Reported Medications and Allergies Home Medications Medication Instructions Recorded Confirmed Type Acetaminophen Tab [Tylenol] 500 mg PO DAILY 05/13/24 05/13/24 History Biotin 5,000 mcg PO DAILY 05/13/24 05/13/24 History Bisoprolol-Hctz 5-6.25 mg [Ziac 1 tab PO DAILY 05/13/24 05/13/24 History 5-6.25 MG] Magnesium 250 mg PO DAILY 05/13/24 05/13/24 History Allergies Allergy/AdvReac Type Severity Reaction Status Date / Time Penicillins AdvReac Unknown Verified 07/09/24 17:36 Physical Exam Vitals: Vital Signs Temp Pulse Pulse Resp BP Pulse Ox 07/10/24 05:59 56 L 18 164/59 98 07/10/24 04:04 57 L 18 206/81 100 07/10/24 03:27 59 L 16 199/81 98 07/10/24 02:31 57 L 16 186/86 98 07/09/24 23:00 52 L 18 162/65 99 07/09/24 22:00 54 L 18 157/65 99 07/09/24 21:58 84 18 140/75 97 07/09/24 21:00 51 L 18 167/62 99 07/09/24 20:22 61 18 185/76 97 07/09/24 20:06 54 L 18 202/99 98 07/09/24 18:57 61 16 190/78 98 07/09/24 18:14 53 L 16 196/80 99 07/09/24 18:05 53 L 07/09/24 17:34 97.5 F L 52 L 18 215/77 100 Intake and Output 07/09/24 07/10/24 07/10/24 22:59 06:59 14:59 Other: Weight 63.503 kg - Constitutional General appearance: cooperative, no acute distress - EENT Eyes: EOMI - Neck Neck: no lymphadenopathy - Respiratory Respiratory: bilateral: diminished - Cardiovascular Rhythm: regular Heart sounds: normal: S1, S2 Abnormal Heart Sounds: no S3 Gallop - Gastrointestinal General gastrointestinal: soft, no tenderness - Integumentary Integumentary: normal turgor, no ulcer - Neurologic Neurologic: CNII-XII intact - Psychiatric Psychiatric: appropriate affect, intact judgment & insight Results CBC & Chem 7: 07/09/24 18:20 07/09/24 18:20 Labs: Abnormal Lab Results - Last 24 Hours (Table) 07/09/24 07/09/24 Range/Units 18:20 18:20 RBC 3.44 L (3.80-5.40) m/uL Hgb 10.5 L (11.4-16.0) gm/dL Hct 32.0 L (34.0-46.0) % Sodium 134 L (137-145) mmol/L BUN 37 H (7-17) mg/dL Creatinine 1.25 H (0.52-1.04) mg/dL Assessment and Plan (1) Chest pain Current Visit: Yes Status: Acute Code(s): R07.9 - CHEST PAIN, UNSPECIFIED SNOMED Code(s): 91530351 (2) Arthritis Current Visit: No Status: Acute Code(s): M19.90 - UNSPECIFIED OSTEOARTHRITIS, UNSPECIFIED SITE SNOMED Code(s): 7011339 (3) Fall Current Visit: No Status: Acute Code(s): W19.XXXA - UNSPECIFIED FALL, INITIAL ENCOUNTER SNOMED Code(s): 2078605 (4) Hypertension Current Visit: No Status: Acute Code(s): I10 - ESSENTIAL (PRIMARY) HYPERTENSION SNOMED Code(s): 71372439 Plan: Appreciate cardiology input. The patient is otherwise a full code. Echocardiogram has been ordered. Will continue to follow. Ancillary medications as necessary.
[2024-07-10] MEDS ORDERED: BISOPROLOL-HCTZ 5-6.25 MG 1 EACH TAB PO SCH (09:00)
--- NOTE | 2024-07-10 09:16 | P.CRDCN ---
History of Present Illness History of present illness: HISTORY OF PRESENT ILLNESS: This is a 84-year-old female with a past medical history significant for hypertension. Patient does not follow with a gallery or museum guide. We have been asked to see the patient in consultation for chest pain. Patient examined at the bedside in the emergency room. The patient is a poor historian. There is no family present to provide additional information. The patient states that she presented to the hospital after falling at home. She states she was unable to get up. She denies losing consciousness. She does report having chest pain on and off for the past 3 to 4 months. She reports lower extremity swelling but states this is chronic. She also endorses that her left leg is also more swollen than her right and that this is not new. Patient's blood pressure was elevated upon admission to the hospital with a reading of 215/77. Patient's blood pressure remains elevated this morning with a systolic in the 150s. At the time of examination she denies any chest pain or pressure. She denies any shortness of breath. She denies any dizziness or lightheadedness. DIAGNOSTICS: - EKG reveals sinus mechanism with T wave inversions in lead I, 2, V4V6, unchanged from previous EKG - Chest xray cardiomegaly and scoliosis - Laboratory data: WBC 5.5. Hemoglobin 10.5. Platelet count 189. Sodium 134. Potassium 4.7. BUN 37. Creatinine 1.25. Troponin negative x 3. proBNP 3610. - Current home cardiac medications include Lasix 10 mg daily and bi soprololhydrochlorothiazide 5-6.25 mg daily. REVIEW OF SYSTEMS: At the time of my exam: CONSTITUTIONAL: Denies fever or chills. HEENT: Denies blurred vision, vision changes, or eye pain. Denies hemoptysis CARDIOVASCULAR: Denies chest pain. Denies orthopnea. Denies PND. Denies palpitations RESPIRATORY: Denies shortness of breath. GASTROINTESTINAL: Denies abdominal pain. Denies nausea or vomiting. HEMATOLOGIC: Denies bleeding disorders. GENITOURINARY: Denies any blood in urine. SKIN: Denies pruitis. Denies rash. PHYSICAL EXAM: VITAL SIGNS: Reviewed. GENERAL: Well-developed in no acute distress. HEENT: Head is normocephalic. Pupils are equal, round. Sclerae anicteric. Mucous membranes of the mouth are moist. Neck supple. No JVD or thyromegaly LUNGS: Respirations even and unlabored. Lungs essentially clear to auscultation bilaterally. HEART: Regular rate and rhythm. S1 and S2 heard. ABDOMEN: Soft. Nondistended. Nontender. EXTREMITIES: Normal range of motion. No clubbing or cyanosis. Peripheral pulses intact. LLE swollen, patient states chronic. NEUROLOGIC: Awake and alert. Oriented x 1-2. ASSESSMENT: Status post mechanical fall Hypertensive urgency Chest pain, x 3 months, troponin negative x 3 PLAN: An acute coronary event has been ruled out Resume home dose of Lasix Discontinue bisoprololhydrochlorothiazide Begin losartan 50 mg daily Obtain orthostatic blood pressures Obtain 2D echo to assess cardiac structure and function Recommend outpatient stress testing Further recommendations pending patient course Nurse practitioner note has been reviewed by physician. Signing provider agrees with the documented findings, assessment, and plan of care documented by GEOGRAPHY PROFESSOR as a scribe. Past Medical History Past Medical History: Coronary Artery Disease (CAD), Chest Pain / Angina, Heart Failure, COPD, CVA/TIA, GERD/Reflux, Hyperlipidemia, Hypertension, Pneumonia Additional Past Medical History / Comment(s): GOUT History of Any Multi-Drug Resistant Organisms: None Reported Past Surgical History: Back Surgery, No Surgical Hx Reported Additional Past Surgical History / Comment(s): breast biopsy Past Anesthesia/Blood Transfusion Reactions: No Reported Reaction Past Psychological History: No Psychological Hx Reported Smoking Status: Unknown if ever smoked Past Alcohol Use History: None Reported Past Drug Use History: None Reported Medications and Allergies Home Medications Medication Instructions Recorded Confirmed Type Acetaminophen Tab [Tylenol] 500 mg PO DAILY 05/13/24 07/10/24 History Biotin 5,000 mcg PO DAILY 05/13/24 07/10/24 History Bisoprolol-Hctz 5-6.25 mg [Ziac 1 tab PO DAILY 05/13/24 07/10/24 History 5-6.25 MG] Magnesium 250 mg PO DAILY 05/13/24 07/10/24 History Furosemide [Lasix] 10 mg PO DAILY 07/10/24 07/10/24 History Allergies Allergy/AdvReac Type Severity Reaction Status Date / Time Penicillins Allergy Unknown Verified 07/10/24 08:04 Physical Exam Vitals: Vital Signs Temp Pulse Pulse Resp BP Pulse Ox 07/10/24 05:59 56 L 18 164/59 98 07/10/24 04:04 57 L 18 206/81 100 07/10/24 03:27 59 L 16 199/81 98 07/10/24 02:31 57 L 16 186/86 98 07/09/24 23:00 52 L 18 162/65 99 07/09/24 22:00 54 L 18 157/65 99 07/09/24 21:58 84 18 140/75 97 07/09/24 21:00 51 L 18 167/62 99 07/09/24 20:22 61 18 185/76 97 07/09/24 20:06 54 L 18 202/99 98 07/09/24 18:57 61 16 190/78 98 07/09/24 18:14 53 L 16 196/80 99 07/09/24 18:05 53 L 07/09/24 17:34 97.5 F L 52 L 18 215/77 100 Intake and Output 07/09/24 07/10/24 07/10/24 22:59 06:59 14:59 Other: Weight 63.503 kg Results 07/09/24 18:20 07/09/24 18:20 Cardiac Enzymes 07/09/24 07/09/24 07/09/24 Range/Units 18:20 18:20 22:16 AST 36 (14-36) U/L Troponin I <0.012 <0.012 (0.000-0.034) ng/mL 07/10/24 Range/Units 01:25 AST (14-36) U/L Troponin I <0.012 (0.000-0.034) ng/mL CBC 07/09/24 Range/Units 18:20 WBC 5.5 (3.8-10.6) k/uL RBC 3.44 L (3.80-5.40) m/uL Hgb 10.5 L (11.4-16.0) gm/dL Hct 32.0 L (34.0-46.0) % Plt Count 189 (150-450) k/uL Comprehensive Metabolic Panel 07/09/24 Range/Units 18:20 Sodium 134 L (137-145) mmol/L Potassium 4.7 (3.5-5.1) mmol/L Chloride 101 (98-107) mmol/L Carbon Dioxide 27 (22-30) mmol/L BUN 37 H (7-17) mg/dL Creatinine 1.25 H (0.52-1.04) mg/dL Glucose 86 (74-99) mg/dL Calcium 9.4 (8.4-10.2) mg/dL AST 36 (14-36) U/L ALT 13 (4-34) U/L Alkaline Phosphatase 44 (38-126) U/L Total Protein 7.6 (6.3-8.2) g/dL Albumin 4.5 (3.5-5.0) g/dL Current Medications Generic Name Dose Route Start Last Admin Trade Name Freq PRN Reason Stop Dose Admin Acetaminophen 650 mg 07/09/24 21:11 Acetaminophen Tab 325 Mg Tab PO Q6HR PRN Mild Pain or Fever > 100.5 Bisoprolol Fumarate 1 each 07/10/24 09:00 Bisoprolol-Hctz 5-6.25 Mg 1 Each Tab PO DAILY GARRICK Naloxone HCl 0.2 mg 07/09/24 21:11 Naloxone 0.4 Mg/Ml 1 Ml Vial IV Q2M PRN Opioid Reversal Intake and Output 07/09/24 07/10/24 07/10/24 22:59 06:59 14:59 Other: Weight 63.503 kg 07/09/24 18:20 07/09/24 18:20
[2024-07-10] MEDS: LOSARTAN 50 MG TAB PO SCH (10:13)
[2024-07-10] MEDS: FUROSEMIDE 10 MG TAB PO SCH (10:13)
[2024-07-10] MEDS ORDERED: hydrALAZINE HCL 10 MG TAB PO PRN (20:47)
[2024-07-10] MEDS: QUEtiapine 25 MG TAB PO STA (21:33)
[2024-07-11] MEDS ORDERED: ACETAMINOPHEN TAB 325 MG TAB ONE (01:30)
[2024-07-11] MEDS ORDERED: hydrALAZINE HCL 10 MG TAB ONE (01:30)
--- NOTE | 2024-07-11 08:28 | P.PN ---
Subjective Progress Note Date: 07/11/24 This is an 84-year-old female who presented to the emergency department with complaints of weakness and a fall in the last several days. Son is also concerned for lower extremity edema and patient also reported intermittent chest pain. Blood pressure has been elevated since admission. Cardiology is on c onsult and they have ordered an echo. Patient was given a one-time dose of IV hydralazine last night and it is ordered as needed for systolic blood pressure over 160. Patient is seen this morning lying in bed resting comfortably, however blood pressure continues to be elevated. Lower extremity edema has improved. Objective - Vital Signs Vital signs: Vital Signs Temp 97.8 F 07/11/24 07:00 Pulse 81 07/11/24 07:00 Resp 16 07/11/24 07:00 BP 193/75 07/11/24 07:00 Pulse Ox 87 L 07/11/24 07:00 FiO2 Intake & Output 07/10/24 07/11/24 07/11/24 18:59 06:59 18:59 Other: # Bowel Movements 0 - Constitutional General appearance: Present: cooperative, no acute distress - EENT Eyes: Present: PERRLA - Neck Neck: Present: normal ROM. Absent: lymphadenopathy, rigidity - Respiratory Respiratory: bilateral: CTA - Cardiovascular Rhythm: regular Heart sounds: normal: S1, S2 - Gastrointestinal General gastrointestinal: Present: soft. Absent: tenderness - Integumentary Integumentary: Present: normal, normal turgor - Musculoskeletal Musculoskeletal: Present: generalized weakness - Psychiatric Psychiatric: Present: A&O x's 3 - Labs CBC & Chem 7: 07/09/24 18:20 07/09/24 18:20 Assessment and Plan (1) Hypertension Current Visit: No Status: Acute Code(s): I10 - ESSENTIAL (PRIMARY) HYPERTENSION SNOMED Code(s): 45699561 (2) Chest pain Current Visit: Yes Status: Acute Code(s): R07.9 - CHEST PAIN, UNSPECIFIED SNOMED Code(s): 11545112 (3) Arthritis Current Visit: No Status: Acute Code(s): M19.90 - UNSPECIFIED OSTEOARTHRITIS, UNSPECIFIED SITE SNOMED Code(s): 2551333 (4) Fall Current Visit: No Status: Acute Code(s): W19.XXXA - UNSPECIFIED FALL, INITIAL ENCOUNTER SNOMED Code(s): 5680028 Plan: Check CMP in the morning. Appreciate cardiology's input regarding blood pressure management. Await echo results. Patient seen and evaluated by nurse practitioner, physician in agreement with plan
--- NOTE | 2024-07-11 10:44 | P.PN ---
Subjective HISTORY OF PRESENT ILLNESS: This is a 84-year-old female with a past medical history significant for hypertension. Patient does not follow with a four slide operator. We have been asked to see the patient in consultation for chest pain. Patient examined at the bedside in the emergency room. The patient is a poor historian. There is no family present to provide additional information. The patient states that she presented to the hospital after falling at home. She states she was unable to get up. She denies losing consciousness. She does report having chest pain on and off for the past 3 to 4 months. She reports lower extremity swelling but states this is chronic. She also endorses that her left leg is also more swollen than her right and that this is not new. Patient's blood pressure was elevated upon admission to the hospital with a reading of 215/77. Patient's blood pressure remains elevated this morning with a systolic in the 150s. At the time of examination she denies any chest pain or pressure. She denies any shortness of breath. She denies any dizziness or lightheadedness. DIAGNOSTICS: - EKG reveals sinus mechanism with T wave inversions in lead I, 2, V4V6, unchanged from previous EKG - Chest xray cardiomegaly and scoliosis - Laboratory data: WBC 5.5. Hemoglobin 10.5. Platelet count 189. Sodium 134. Potassium 4.7. BUN 37. Creatinine 1.25. Troponin negative x 3. proBNP 3610. - Current home cardiac medications include Lasix 10 mg daily and bisoprololhydrochlorothiazide 5-6.25 mg daily. July 11, 2024 Patient examined this morning the bedside. Patients granddaughter is at the bedside this morning. She currently denies chest pain or pressure. Denies shortness of breath. Blood pressure elevated this morning with a reading of 193/73. 2D echo pending. PHYSICAL EXAM: VITAL SIGNS: Reviewed. GENERAL: Well-developed in no acute distress. HEENT: Head is normocephalic. Pupils are equal, round. Sclerae anicteric. Mucous membranes of the mouth are moist. Neck supple. No JVD or thyromegaly LUNGS: Respirations even and unlabored. Lungs essentially clear to auscultation bilaterally. HEART: Regular rate and rhythm. S1 and S2 heard. ABDOMEN: Soft. Nondistended. Nontender. EXTREMITIES: Normal range of motion. No clubbing or cyanosis. Peripheral pulses intact. LLE swollen, patient states chronic. NEUROLOGIC: Awake and alert. Oriented x 1-2. ASSESSMENT: Status post mechanical fall Hypertensive urgency Chest pain, x 3 months, troponin negative x 3 PLAN: Awaiting 2D echo Continue to monitor blood pressure Discontinue PRN hydralazine as this makes it difficult to determine appropriate oral regimen Increase Losartan to 100mg daily Add Norvasc 5mg daily Recommend outpatient stress testing Stable for DC home today from a cardiac standpoint Further recommendations pending patient course Nurse practitioner note has been reviewed by physician. Signing provider agrees with the documented findings, assessment, and plan of care documented by FOREST PRODUCTS GATHERER as a scribe. Objective - Vital Signs Vital signs: Vital Signs Temp 97.8 F 07/11/24 07:00 Pulse 81 07/11/24 07:00 Resp 16 07/11/24 07:00 BP 193/75 07/11/24 07:00 Pulse Ox 87 L 07/11/24 07:00 FiO2 Intake & Output 07/10/24 07/11/24 07/11/24 18:59 06:59 18:59 Other: # Bowel Movements 0 - Labs CBC & Chem 7: 07/09/24 18:20 07/09/24 18:20
[2024-07-11] MEDS: amLODIPine 5 MG TAB PO SCH (11:59)
[2024-07-11] MEDS: LOSARTAN 50 MG TAB PO SCH (11:59)
--- NOTE | 2024-07-11 12:45 | CA ---
Transthoracic Echo Report Name: Kyra Borrero Age: 84 Gender: F : 1940 Exam Date: 07/11/2024 08:51 Exam Location: [facility] Ht (in): 60 Wt (lb): 140 Ordering Physician: Ale Darby Attending/Referring Phys: [id number], [employer] Community Case Manager Mayelin Hahn RDCS Procedure CPT: Indications: LV function, CP Cardiac Hx: Technical Quality: Fair Contrast 1: Total Dose (mL): Contrast 2: Total Dose (mL): MEASUREMENTS (Male / Female) Normal Values 2D ECHO LV Diastolic Diameter PLAX 4.5 cm 4.2 - 5.9 / 3.9 - 5.3 cm LV Systolic Diameter PLAX 1.8 cm IVS Diastolic Thickness 1.3 cm 0.6 - 1.0 / 0.6 - 0.9 cm LVPW Diastolic Thickness 1.2 cm 0.6 - 1.0 / 0.6 - 0.9 cm LV Relative Wall Thickness 0.6 RV Internal Dim ED PLAX 2.8 cm LA Systolic Diameter LX 5.0 cm 3.0 - 4.0 / 2.7 - 3.8 cm LV Diastolic Volume MOD BP 72.2 cm??? 67 - 155 / 56 - 104 cm??? LV Systolic Volume MOD BP 26.4 cm??? - 58 / 19 - 49 cm??? LV Ejection Fraction MOD BP 63.4 % >= 55 % LV Cardiac Index MOD BP 1629.3 cm???/min???m??? LV Diastolic Volume MOD 4C 79.5 cm??? LV Systolic Volume MOD 4C 21.5 cm??? LV Ejection Fraction MOD 4C 72.9 % LV Cardiac Index MOD 4C 2061.9 cm???/min???m??? LV Diastolic Length 4C 7.1 cm LV Systolic Length 4C 5.0 cm LV Diastolic Volume MOD 2C 65.0 cm??? LV Systolic Volume MOD 2C 26.5 cm??? LV Ejection Fraction MOD 2C 59.2 % LV Cardiac Index MOD 2C 1368.0 cm???/min???m??? LV Diastolic Length 2C 7.0 cm LV Systolic Length 2C 6.1 cm LA Volume 110.0 cm??? 18 - 58 / 22 - 52 cm??? LA Volume Index 66.3 cm???/m??? 16 - 28 cm???/m??? M-MODE Aortic Root Diameter MM 2.5 cm LA Systolic Diameter MM 4.9 cm LA Ao Ratio MM 2.0 AV Cusp Separation MM 1.8 cm DOPPLER AV Peak Velocity 219.2 cm/s AV Peak Gradient 19.2 mmHg AV Mean Velocity 150.4 cm/s AV Mean Gradient 10.0 mmHg AV Velocity Time Integral 62.4 cm MV Area PHT 1.8 cm??? Mitral E Point Velocity 80.5 cm/s Mitral A Point Velocity 128.6 cm/s Mitral E to A Ratio 0.6 MV Deceleration Time 411.1 ms TR Peak Velocity 331.9 cm/s TR Peak Gradient 44.1 mmHg FINDINGS Left Ventricle Left ventricular ejection fraction is estimated at 55-60 %. Moderately increased septal wall thickness. Mildly increased posterior wall thickness. Left ventricular cavity size normal. No obvious regional wall motion abnormalities. Right Ventricle Mild right ventricular dilatation. Mild pulmonary hypertension. Right Atrium Mild right atrial dilatation. Left Atrium Severely increased left atrial diameter. Severely increased left atrial volume. Mildly increased left atrial area. Mitral Valve Structurally normal mitral valve. Mild mitral regurgitation. No mitral stenosis. Aortic Valve Trileaflet aortic valve. No aortic regurgitation. Diffuse thickening (sclerosis) of the aortic valve cusps without reduced excursion. Tricuspid Valve Structurally normal tricuspid valve. Mild tricuspid regurgitation. Pulmonic Valve Structurally normal pulmonic valve. Mild pulmonic regurgitation. Pericardium Small pericardial effusion. Pericardial effusion located anteriorly. Aorta Normal size aortic root and proximal ascending aorta. CONCLUSIONS Left ventricular ejection fraction 55-60% Mildly increased left ventricular wall thickness with moderate asymmetric septal hypertrophy RVSP 44 Mild mitral regurgitation Small pericardial effusion without tamponade physiology Previewed by: Dr. Jose Alfredo Lundy DO (Electronically Signed) Final Date: 11 July 2024 12:44
[2024-07-11] MEDS: ACETAMINOPHEN TAB 325 MG TAB PO PRN (17:29)
[2024-07-11] MEDS ORDERED: hydrALAZINE HCL 20 MG/ML 1 ML VIAL ONE (18:05)
[2024-07-11] MEDS: hydrALAZINE HCL 20 MG/ML 1 ML VIAL IVP ONE (18:12)
[2024-07-12 03:04] VITALS: RESP 16; TEMP 98.1
--- NOTE | 2024-07-12 08:10 | P.DS ---
Providers Date of admission: 07/09/24 21:05 Expected date of discharge: 07/12/24 Attending physician: Blaise Liao Consults: 07/09/24 21:11 Consult Physician Urgent Consulting Provider: [facility] Consult Reason/Comments: chest pain Do you want consulting provider notified?: Yes, Notify in am Primary care physician: Blaise Liao - Discharge Diagnosis(es) (1) Chest pain Current Visit: Yes Status: Acute (2) Arthritis Current Visit: No Status: Acute (3) Fall Current Visit: No Status: Acute (4) Hypertension Current Visit: No Status: Acute Hospital Course: The patient was admitted essentially for edema and weakness. Congestive heart failure was diagnosed with natruretic peptide. The patient was appropriately adjusted on his per medication but started having hypertensive urgency. Again, medications were titrated and she was placed on Norvasc with losartan and tolerated this quite well. Blood pressure systolically is still elevated but significantly improved in the last 48 hours. Echocardiogram shows good ejection fraction and she will be discharged if appropriate with cardiology. She seems to be tolerating diet with minimal assistance outside of using a walker. Mild confusion and some time stated but she follows directions appropriately Patient Condition at Discharge: Fair Plan - Discharge Summary New Discharge Prescriptions: New Losartan [Cozaar] 100 mg PO DAILY #30 tab amLODIPine [Norvasc] 5 mg PO DAILY #30 tab Continue Biotin 5,000 mcg PO DAILY Acetaminophen Tab [Tylenol] 500 mg PO DAILY Magnesium 250 mg PO DAILY Furosemide [Lasix] 10 mg PO DAILY Discontinued Bisoprolol-Hctz 5-6.25 mg [Ziac 5-6.25 MG] 1 tab PO DAILY Discharge Medication List Acetaminophen Tab [Tylenol] 500 mg PO DAILY 05/13/24 [History] Biotin 5,000 mcg PO DAILY 05/13/24 [History] Magnesium 250 mg PO DAILY 05/13/24 [History] Furosemide [Lasix] 10 mg PO DAILY 07/10/24 [History] Losartan [Cozaar] 100 mg PO DAILY #30 tab 07/12/24 [Rx] amLODIPine [Norvasc] 5 mg PO DAILY #30 tab 07/12/24 [Rx] Follow up Appointment(s)/Referral(s): [facility], [NON-STAFF] - 1 Week Blaise Liao MD [Primary Care Provider] - 1 Week
[2024-07-12 09:11] LABS: ALT 12 U/L (8-44); AST 28 U/L (13-35); Albumin/Globulin Ratio 1.48 Ratio (1.60-3.17); Alkaline Phosphatase 50 U/L (41-126); BUN/Creat Ratio 14.75 Ratio (12.00-20.00); Blood Urea Nitrogen 23.6 mg/dL (9.0-27.0); Calcium 9.4 mg/dL (8.7-10.3); Carbon Dioxide 26.7 mmol/L (21.6-31.8); Chloride 106 mmol/L (96-109); Globulin 2.7 g/dL (1.6-3.3); Glucose 94 mg/dL (70-110); Potassium 4.3 mmol/L (3.5-5.5); Sodium 149 mmol/L (135-145); Total Bilirubin 0.5 mg/dL (0.3-1.2); Total Protein 6.7 g/dL (6.2-8.2)
[2024-07-12 10:30] VITALS: BP 183/67; PULSE 65
--- NOTE | 2024-07-12 12:18 | P.PN ---
Subjective HISTORY OF PRESENT ILLNESS: This is a 84-year-old female with a past medical history significant for hypertension. Patient does not follow with a catalog librarian. We have been asked to see the patient in consultation for chest pain. Patient examined at the bedside in the emergency room. The patient is a poor historian. There is no family present to provide additional information. The patient states that she presented to the hospital after falling at home. She states she was unable to get up. She denies losing consciousness. She does report having chest pain on and off for the past 3 to 4 months. She reports lower extremity swelling but states this is chronic. She also endorses that her left leg is also more swollen than her right and that this is not new. Patient's blood pressure was elevated upon admission to the hospital with a reading of 215/77. Patient's blood pressure remains elevated this morning with a systolic in the 150s. At the time of examination she denies any chest pain or pressure. She denies any shortness of breath. She denies any dizziness or lightheadedness. DIAGNOSTICS: - EKG reveals sinus mechanism with T wave inversions in lead I, 2, V4V6, unchanged from previous EKG - Chest xray cardiomegaly and scoliosis - Laboratory data: WBC 5.5. Hemoglobin 10.5. Platelet count 189. Sodium 134. Potassium 4.7. BUN 37. Creatinine 1.25. Troponin negative x 3. proBNP 3610. - Current home cardiac medications include Lasix 10 mg daily and bisoprololhydrochlorothiazide 5-6.25 mg daily. July 11, 2024 Patient examined this morning the bedside. Patients granddaughter is at the bedside this morning. She currently denies chest pain or pressure. Denies shortness of breath. Blood pressure elevated this morning with a reading of 193/73. 2D echo pending. 07/12/2024 Patient examined this morning the bedside. Patient denies chest pain or pressure. She denies shortness of breath. Blood pressure at 2 AM 162/72. Echocardiogram completed revealing ejection fraction 55 to 60%, mild MR, small pericardial effusion without tamponade physiology. PHYSICAL EXAM: VITAL SIGNS: Reviewed. GENERAL: Well-developed in no acute distress. HEENT: Head is normocephalic. Pupils are equal, round. Sclerae anicteric. Mucous membranes of the mouth are moist. Neck supple. No JVD or thyromegaly LUNGS: Respirations even and unlabored. Lungs essentially clear to auscultation bilaterally. HEART: Regular rate and rhythm. S1 and S2 heard. ABDOMEN: Soft. Nondistended. Nontender. EXTREMITIES: Normal range of motion. No clubbing or cyanosis. Peripheral pulses intact. LLE swollen, patient states chronic. NEUROLOGIC: Awake and alert. Oriented x 1-2. ASSESSMENT: Status post mechanical fall Hypertensive urgency Chest pain, x 3 months, troponin negative x 3 PLAN: Continue current cardiac medications Increase Norvasc to 10mg daily Patient encouraged to monitor her blood pressure on an outpatient basis. Rec ommend patient get a BP cuff post discharge to monitor her BP at home. Stable for DC home today from a cardiac standpoint Further recommendations pending patient course Nurse practitioner note has been reviewed by physician. Signing provider agrees with the documented findings, assessment, and plan of care documented by PAEDIATRICIAN as a scribe. Objective - Vital Signs Vital signs: Vital Signs Temp 98.1 F 07/12/24 02:00 Pulse 62 07/12/24 02:00 Resp 16 07/12/24 02:00 BP 162/72 07/12/24 02:00 Pulse Ox 98 07/12/24 02:00 FiO2 Intake & Output 07/11/24 07/12/24 07/12/24 18:59 06:59 18:59 Intake Total 118 Balance 118 Intake: Oral 118 Other: # Voids 3 1 # Bowel Movements 0 - Labs CBC & Chem 7: 07/09/24 18:20 07/12/24 05:36 Labs: Abnormal Lab Results - Last 24 Hours (Table) 07/12/24 Range/Units 05:36 Sodium 149 H (135-145) mmol/L Anion Gap 16.30 H (4.00-12.00) mmol/L Creatinine 1.6 H (0.6-1.5) mg/dL Est GFR (CKD-EPI) 31 L (>=60) Albumin/Globulin Ratio 1.48 L (1.60-3.17) Ratio
== END 2024-07-12 13:42 | disposition home or self-care (01) ==
LOC: EC 17:30 → 6NMEDSUR 21:05 → EEVIPCON 21:05 → 6NMEDSUR 21:47
PROVIDERS: ADMIT Family Medicine; ATTEND Family Medicine
DX: R07.89 Other chest pain (principal); I16.0 Hypertensive urgency; I11.0 Hypertensive heart disease with heart failure; I50.9 Heart failure, unspecified; I44.0 Atrioventricular block, first degree; I34.0 Nonrheumatic mitral (valve) insufficiency; R00.1 Bradycardia, unspecified; M41.9 Scoliosis, unspecified; M71.21 Synovial cyst of popliteal space [Baker], right knee; R41.0 Disorientation, unspecified; M19.90 Unspecified osteoarthritis, unspecified site; Z79.899 Other long term (current) drug therapy; Z88.0 Allergy status to penicillin; W19.XXXA Unspecified fall, initial encounter; Y92.009 Unspecified place in unspecified non-institutional (private) residence as the place of occurrence of the external cause
CPT/HCPCS: 36415; 71046; 80053; 83880; 84484; 85025; 93005; 93306; 96374; 96376; 99285

== ENCOUNTER 2024-07-18 09:13 | Emergency (ER) | payer MEDICARE, OTHER ==
[2024-07-18 09:20] VITALS: TEMP 97.6
--- NOTE | 2024-07-18 10:19 | ED ---
General Adult HPI - General Chief complaint: Chest Pain Stated complaint: chest pain Time Seen by Provider: 07/18/24 09:22 Source: patient, RN notes reviewed, old records reviewed Mode of arrival: wheelchair Limitations: no limitations - History of Present Illness Initial comments: 84-year-old female presenting for evaluation of chest pain. Patient has a difficult time characterizing this chest pain stating that has been present for the past 24 hours. Central chest knot-like sensation. No diaphoresis. No vomiting. Patient was seen for chest pain and admitted 1 week ago without definitive diagnosis. Patient also reports left leg swelling which is worsening. No dyspnea. No fever. No cough - Related Data Home Medications Medication Instructions Recorded Confirmed Acetaminophen Tab [Tylenol] 500 mg PO DAILY 05/13/24 07/10/24 Biotin 5,000 mcg PO DAILY 05/13/24 07/10/24 Magnesium 250 mg PO DAILY 05/13/24 07/10/24 Furosemide [Lasix] 10 mg PO DAILY 07/10/24 07/10/24 Previous Rx's Medication Instructions Recorded Losartan [Cozaar] 100 mg PO DAILY #30 tab 07/12/24 amLODIPine [Norvasc] 10 mg PO DAILY #30 tablet 07/12/24 Allergies Allergy/AdvReac Type Severity Reaction Status Date / Time Penicillins Allergy Unknown Verified 07/18/24 09:20 Review of Systems ROS Statement: Those systems with pertinent positive or pertinent negative responses have been documented in the HPI. ROS Other: All systems not noted in ROS Statement are negative. Past Medical History Past Medical History: Coronary Artery Disease (CAD), Chest Pain / Angina, Heart Failure, COPD, CVA/TIA, GERD/Reflux, Hyperlipidemia, Hypertension, Pneumonia Additional Past Medical History / Comment(s): GOUT History of Any Multi-Drug Resistant Organisms: None Reported Past Surgical History: Back Surgery, No Surgical Hx Reported Additional Past Surgical History / Comment(s): breast biopsy Past Anesthesia/Blood Transfusion Reactions: No Reported Reaction Past Psychological History: No Psychological Hx Reported Smoking Status: Unknown if ever smoked Past Alcohol Use History: None Reported Past Drug Use History: None Reported General Exam Limitations: no limitations General appearance: alert, in no apparent distress Head exam: Present: atraumatic, normocephalic Eye exam: Present: normal appearance, PERRL ENT exam: Present: normal exam Neck exam: Present: normal inspection. Absent: tenderness, meningismus Respiratory exam: Present: normal lung sounds bilaterally. Absent: respiratory distress, wheezes, rales Cardiovascular Exam: Present: regular rate, normal rhythm GI/Abdominal exam: Present: soft. Absent: distended, tenderness Extremities exam: Present: calf tenderness (Left leg swelling) Neurological exam: Present: alert, oriented X3 Psychiatric exam: Present: normal affect, normal mood Course Vital Signs 07/18/24 07/18/24 09:18 10:20 Temperature 97.6 F Pulse Rate 71 66 Pulse Rate [ 72 Stock Unloader ] Respiratory 16 18 Rate Blood Pressure 182/76 172/81 O2 Sat by Pulse 96 98 Oximetry Medical Decision Making - Medical Decision Making Was pt. sent in by a medical professional or institution (, [facility]ENE, JUMPBASTING ARMHOLE BASTER, urgent care, hospital, or jail...) When possible be specific @ -No Did you speak to anyone other than the patient for history (EMS, parent, family, police, friend...)? What history was obtained from this source @ -No Did you review nursing and triage notes (agree or disagree)? Why? @ -I reviewed and agree with nursing and triage notes Were old charts reviewed (outside hosp., previous admission, EMS record, old EKG, old radiological studies, urgent care reports/EKG's, jail records)? Report findings @ -No old charts were reviewed Differential Chest Pain: Stable Angina, Unstable Angina, STEMI, NSTEMI Aortic Dissection, Pneumothorax, Musculoskeletal, Esophageal Spasm GERD, Cholecystitis, Pancreatitis, Zoster, this is not meant to be an all-inclusive list. EKG interpreted by me (3pts min.). @ -Sinus rhythm rate of 64, MN interval 185, QRS duration 81, QTc [address] segment elevation. X-rays interpreted by me (1pt min.). @ Chest x-ray stable from prior no acute findings CT interpreted by me (1pt min.). @ -None done U/S interpreted by me (1pt. min.). @ -[Ultrasound negative for DVT of the left lower extremity What testing was considered but not performed or refused? (CT, X-rays, U/S, labs)? Why? @ -None What meds were considered but not given or refused? Why? @ -None Did you discuss the management of the patient with other professionals (professionals i.e. Dr., PA, JUMPBASTING ARMHOLE BASTER, lab, RT, psych nurse, manager social services, cutting torch operator, teacher, building drafting officer, special education case manager)? Give summary @ -Case discussed with Dr. Liao who is the patient's primary care provider, okay with discharge at this time Was smoking cessation discussed for >3mins.? @ -No Was critical care preformed (if so, how long)? @ -No Were there social determinants of health that impacted care today? How? (Homelessness, low income, unemployed, alcoholism, drug addiction, transportation, low edu. Level, literacy, decrease access to med. care, halfway, re hab)? @ -No Was there de-escalation of care discussed even if they declined (Discuss DNR or withdrawal of care, Hospice)? DNR status @ -No What co-morbidities impacted this encounter? (DM, HTN, Smoking, COPD, CAD, Cancer, CVA, ARF, Chemo, Hep., AIDS, mental health diagnosis, sleep apnea, morbid obesity)? @ -[Scoliosis, coronary artery disease, and edema Was patient admitted / discharged? Hospiurse, mention meds given and route, prescriptions, significant lab abnormalities, going to OR and other pertinent info. @ 84-year-old female presenting with complaint of chest pain. History is limited the patient does not appear in any distress. EKG is sinus without ST segment elevation. Chest x-ray is stable from prior. She has chronic anemia, chronic kidney disease. Troponin is again negative. Patient was seen by cardiology 1 week ago had serial cardiac enzymes that were negative with the same complaint. Myself and primary care Dr. Liao felt that patient is stable for discharge at this time Undiagnosed new problem with uncertain prognosis? @ -No Drug Therapy requiring intensive monitoring for toxicity (Heparin, Nitro, Insulin, Cardizem)? @ -No Were any procedures done? @ -No Diagnosis/symptom? @ -Chest pain Acute, or Chronic, or Acute on Chronic? @ -[Acute Uncomplicated (without systemic symptoms) or Complicated (systemic symptoms)? @ -Default Side effects of treatment? @ -No Exacerbation, Progression, or Severe Exacerbation? @ -No Poses a threat to life or bodily function? How? (Chest pain, USA, PR, pneumonia, PE, COPD, DKA, ARF, appy, cholecystitis, CVA, Diverticulitis, Homicidal, Suicidal, threat to staff... and all critical care pts) @ -[Yes, ACS - Lab Data Result diagrams: 07/18/24 10:14 07/18/24 10:14 Lab Results 07/18/24 07/18/24 07/18/24 Range/Units 10:14 10:14 10:14 WBC 4.4 (3.8-10.6) k/uL RBC 3.32 L (3.80-5.40) m/uL Hgb 10.0 L (11.4-16.0) gm/dL Hct 30.4 L (34.0-46.0) % MCV 91.6 (80.0-100.0) fL MCH 30.1 (25.0-35.0) pg MCHC 32.9 (31.0-37.0) g/dL RDW 13.3 (11.5-15.5) % Plt Count 213 (150-450) k/uL MPV 8.3 Neutrophils % 58 % Lymphocytes % 24 % Monocytes % 10 % Eosinophils % 4 % Basophils % 1 % Neutrophils # 2.5 (1.3-7.7) k/uL Lymphocytes # 1.1 (1.0-4.8) k/uL Monocytes # 0.4 (0-1.0) k/uL Eosinophils # 0.2 (0-0.7) k/uL Basophils # 0.0 (0-0.2) k/uL PT 10.5 (10.0-12.5) sec INR 0.9 (<1.2) APTT 24.2 (22.0-30.0) sec Sodium 127 L (137-145) mmol/L Potassium 4.1 (3.5-5.1) mmol/L Chloride 100 (98-107) mmol/L Carbon Dioxide 28 (22-30) mmol/L Anion Gap -1 mmol/L BUN 43 H (7-17) mg/dL Creatinine 1.70 H (0.52-1.04) mg/dL Est GFR (CKD-EPI)AfAm 31 (>60 ml/min/1.73 sqM) Est GFR (CKD-EPI)NonAf 27 (>60 ml/min/1.73 sqM) Glucose 96 (74-99) mg/dL Calcium 9.4 (8.4-10.2) mg/dL Magnesium 2.3 (1.6-2.3) mg/dL Total Bilirubin 0.6 (0.2-1.3) mg/dL AST 38 H (14-36) U/L ALT 15 (4-34) U/L Alkaline Phosphatase 59 (38-126) U/L Troponin I (0.000-0.034) ng/mL Total Protein 7.0 (6.3-8.2) g/dL Albumin 4.2 (3.5-5.0) g/dL 07/18/24 Range/Units 10:14 WBC (3.8-10.6) k/uL RBC (3.80-5.40) m/uL Hgb (11.4-16.0) gm/dL Hct (34.0-46.0) % MCV (80.0-100.0) fL MCH (25.0-35.0) pg MCHC (31.0-37.0) g/dL RDW (11.5-15.5) % Plt Count (150-450) k/uL MPV Neutrophils % % Lymphocytes % % Monocytes % % Eosinophils % % Basophils % % Neutrophils # (1.3-7.7) k/uL Lymphocytes # (1.0-4.8) k/uL Monocytes # (0-1.0) k/uL Eosinophils # (0-0.7) k/uL Basophils # (0-0.2) k/uL PT (10.0-12.5) sec INR (<1.2) APTT (22.0-30.0) sec Sodium (137-145) mmol/L Potassium (3.5-5.1) mmol/L Chloride (98-107) mmol/L Carbon Dioxide (22-30) mmol/L Anion Gap mmol/L BUN (7-17) mg/dL Creatinine (0.52-1.04) mg/dL Est GFR (CKD-EPI)AfAm (>60 ml/min/1.73 sqM) Est GFR (CKD-EPI)NonAf (>60 ml/min/1.73 sqM) Glucose (74-99) mg/dL Calcium (8.4-10.2) mg/dL Magnesium (1.6-2.3) mg/dL Total Bilirubin (0.2-1.3) mg/dL AST (14-36) U/L ALT (4-34) U/L Alkaline Phosphatase (38-126) U/L Troponin I <0.012 (0.000-0.034) ng/mL Total Protein (6.3-8.2) g/dL Albumin (3.5-5.0) g/dL Disposition Clinical Impression: Chest pain Disposition: HOME SELF-CARE Condition: Fair Instructions (If sedation given, give patient instructions): Chest Pain (ED) Is patient prescribed a controlled substance at d/c from ED?: No Referrals: Blaise Liao MD [Primary Care Provider] - 1-2 days Time of Disposition: 12:27
[2024-07-18 11:04] LABS: Basophils % (A) 1 %; Eosinophils # (A) 0.2 k/uL (0-0.7); Eosinophils % (A) 4 %; HCT 30.4 % (34.0-46.0); Lymphocytes # (A) 1.1 k/uL (1.0-4.8); Lymphocytes % (A) 24 %; MCH 30.1 pg (25.0-35.0); MCHC 32.9 g/dL (31.0-37.0); MCV 91.6 fL (80.0-100.0); Mean Platelet Volume 8.3; Monocytes # (A) 0.4 k/uL (0-1.0); Monocytes % (A) 10 %; Neutrophils # (A) 2.5 k/uL (1.3-7.7); Neutrophils % (A) 58 %; Platelet Count 213 k/uL (150-450); RBC 3.32 m/uL (3.80-5.40); RDW 13.3 % (11.5-15.5); WBC 4.4 k/uL (3.8-10.6)
--- NOTE | 2024-07-18 11:08 | XR ---
EXAMINATION TYPE: XR chest 2V DATE OF EXAM: 07/18/2024 COMPARISON: 07/09/2024 TECHNIQUE: PA and lateral views submitted. HISTORY: Chest pain FINDINGS: Exam limited by reduced inspiration. Heart is enlarged and there is ectasia and a suspected aneurysma l dilation of the thoracic aorta. Degenerative changes of the spine. No evidence of overt failure, pn eumothorax, pleural effusion or sizable consolidation. Osteopenia, and arthropathy of the shoulders. IMPRESSION: 1. 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
[2024-07-18 11:17] LABS: ALT 15 U/L (4-34); AST 38 U/L (14-36); African American GFR (CKD) 31 (>60 ml/min/1.73 sqM); Albumin 4.2 g/dL (3.5-5.0); Alkaline Phosphatase 59 U/L (38-126); Anion Gap -1 mmol/L; Blood Urea Nitrogen 43 mg/dL (7-17); Calcium 9.4 mg/dL (8.4-10.2); Carbon Dioxide 28 mmol/L (22-30); Chloride 100 mmol/L (98-107); Glucose 96 mg/dL (74-99); Magnesium 2.3 mg/dL (1.6-2.3); Non-African American GFR(CKD) 27 (>60 ml/min/1.73 sqM); Potassium 4.1 mmol/L (3.5-5.1); Sodium 127 mmol/L (137-145); Total Bilirubin 0.6 mg/dL (0.2-1.3)
[2024-07-18 11:26] LABS: INR 0.9 (<1.2); Partial Thromboplastin Time 24.2 sec (22.0-30.0); Prothrombin Time 10.5 sec (10.0-12.5)
--- NOTE | 2024-07-18 11:32 | US ---
EXAMINATION TYPE: US venous doppler duplex LE LT DATE OF EXAM: 07/18/2024 11:28 AM COMPARISON: 07/09/2024 CLINICAL INDICATION: Female, 84 years old with history of swelling; Left leg swelling SIDE PERFORMED: Left TECHNIQUE: The lower extremity deep venous system is examined utilizing real time linear array sonog ozzy with graded compression, doppler sonography and color-flow sonography. VESSELS IMAGED: Common Femoral Vein Deep Femoral Vein Greater Saphenous Vein * Femoral Vein Popliteal Vein Small Saphenous Vein * Proximal Calf Veins (* superficial vessels) Left Leg: Negative for DVT subcutaneous soft tissue edema. IMPRESSION: Grayscale, color doppler, spectral doppler imaging performed of the deep veins of the lo wer extremities. There is normal flow, compressibility, vascular waveforms.
[2024-07-18 13:09] VITALS: BP 168/71; PULSE 81; RESP 16
== END 2024-07-18 13:09 | disposition home or self-care (01) ==
LOC: EC 09:13
CPT/HCPCS: 36415; 71046; 80053; 83735; 84484; 85025; 85610; 85730; 93005; 99285

== ENCOUNTER 2024-08-01 19:46 | Emergency (ER) | payer MEDICARE, OTHER ==
[2024-08-01 19:51] VITALS: TEMP 97.4
--- NOTE | 2024-08-01 19:56 | ED ---
Extremity Problem HPI - General Chief complaint: Extremity Problem,Nontraumatic Stated complaint: randy leg swelling Time Seen by Provider: 08/01/24 19:56 Source: patient, RN notes reviewed Mode of arrival: ambulatory Limitations: no limitations - History of Present Illness Initial comments: 84 old female presents emergency department accompanied by her niece for chief complaint of bilateral lower extremity edema. It is reported that patient's edema has been worsening over the past few days and the left lower extremity is more swollen than the right. Patient has been evaluated emergency department multiple times for the same condition. She denies history of congestive heart failure. Currently patient is on 10 mg of Lasix daily and states that she has been compliant with this medication. She is denying symptoms of shortness of breath, difficulty breathing, chest pain, heart palpitations, dizziness, lightheadedness. Denies paroxysmal nocturnal dyspnea. - Related Data Home Medications Medication Instructions Recorded Confirmed Acetaminophen Tab [Tylenol] 500 mg PO DAILY 05/13/24 07/10/24 Biotin 5,000 mcg PO DAILY 05/13/24 07/10/24 Magnesium 250 mg PO DAILY 05/13/24 07/10/24 Furosemide [Lasix] 10 mg PO DAILY 07/10/24 07/10/24 Previous Rx's Medication Instructions Recorded Losartan [Cozaar] 100 mg PO DAILY #30 tab 07/12/24 amLODIPine [Norvasc] 10 mg PO DAILY #30 tablet 07/12/24 Allergies Allergy/AdvReac Type Severity Reaction Status Date / Time Penicillins Allergy Unknown Verified 08/01/24 19:50 Review of Systems ROS Statement: Those systems with pertinent positive or pertinent negative responses have been documented in the HPI. ROS Other: All systems not noted in ROS Statement are negative. Past Medical History Past Medical History: Coronary Artery Disease (CAD), Chest Pain / Angina, Heart Failure, COPD, CVA/TIA, GERD/Reflux, Hyperlipidemia, Hypertension, Pneumonia Additional Past Medical History / Comment(s): GOUT History of Any Multi-Drug Resistant Organisms: None Reported Past Surgical History: Back Surgery, No Surgical Hx Reported Additional Past Surgical History / Comment(s): breast biopsy Past Anesthesia/Blood Transfusion Reactions: No Reported Reaction Past Psychological History: No Psychological Hx Reported Smoking Status: Unknown if ever smoked Past Alcohol Use History: None Reported Past Drug Use History: None Reported General Exam Limitations: no limitations General appearance: alert, in no apparent distress Head exam: Present: atraumatic, normocephalic, normal inspection Eye exam: Present: normal appearance, PERRL, EOMI. Absent: scleral icterus, conjunctival injection, periorbital swelling ENT exam: Present: normal exam, mucous membranes moist Neck exam: Present: normal inspection. Absent: tenderness, meningismus, lymphadenopathy Respiratory exam: Present: normal lung sounds bilaterally. Absent: respiratory distress, wheezes, rales, rhonchi, stridor Cardiovascular Exam: Present: regular rate, normal rhythm, normal heart sounds. Absent: systolic murmur, diastolic murmur, rubs, gallop, clicks GI/Abdominal exam: Present: soft, normal bowel sounds. Absent: distended, tenderness, guarding, rebound, rigid Extremities exam: Present: normal inspection, full ROM, pedal edema, other (bilateral LE pitting edema, worse edema on the left) Back exam: Present: normal inspection Skin exam: Present: warm, dry, intact, normal color. Absent: rash Course Vital Signs 08/01/24 19:47 Temperature 97.4 F L Pulse Rate 73 Respiratory 15 Rate Blood Pressure 161/66 O2 Sat by Pulse 97 Oximetry Medical Decision Making - Medical Decision Making Was pt. sent in by a medical professional or institution (, GENE, PARTS COORDINATOR, urgent care, hospital, or [place] [facility] facility...) When possible be specific @ -No Did you speak to anyone other than the patient for history (EMS, parent, family, police, friend...)? What history was obtained from this source @ -Spoke to the patient's niece at bedside who states that she takes 10 mg of Lasix daily. Did you review nursing and triage notes (agree or disagree)? Why? @ -I reviewed and agree with nursing and triage notes Were old charts reviewed (outside hosp., previous admission, EMS record, old EKG, old radiological studies, urgent care reports/EKG's, [place] [facility] records)? Report findings @ -Reviewed the patient's previous ultrasound report of the left lower extremity that was negative for DVTcompleted on 07/18/2024 Differential Diagnosis (chest pain, altered mental status, abdominal pain women, abdominal pain men, vaginal bleeding, weakness, fever, dyspnea, syncope, headache, dizziness, GI bleed, back pain, seizure, CVA, palpatations, mental health, musculoskeletal)? @ -venous insufficiency, electrolyte abnormality, DVT, this list is not all inclusive EKG interpreted by me (3pts min.). @ -completed at 2021 sinus rhythm with a ventricular to 75, parable 189, QTc 409. No acute signs of ischemia. X-rays interpreted by me (1pt min.). @ -None done CT interpreted by me (1pt min.). @ -None done U/S interpreted by me (1pt. min.). @ -None done What testing was considered but not performed or refused? (CT, X-rays, U/S, labs)? Why? @ -Ultrasound left lower extremity considered but deferred at this time. Patient had a recent duplex ultrasound of the left lower extremity that was negative for DVT. There is minimal clinical concern for a blood clot at this time. Patient and family are in agreement with deferring ultrasound repeat What meds were considered but not given or refused? Why? @ -None Did you discuss the management of the patient with other professionals (prof terry i.e. , PA, PARTS COORDINATOR, lab, RT, psych nurse, social security benefits interviewer, grounds keeper, teacher, promotion officer, correctional case manager)? Give summary @ -No Was smoking cessation discussed for >3mins.? @ -No Was critical care preformed (if so, how long)? @ -No Were there social determinants of health that impacted care today? How? (Homelessness, low income, unemployed, alcoholism, drug addiction, transportation, low edu. Level, literacy, decrease access to med. care, long term, rehab)? @ -No Was there de-escalation of care discussed even if they declined (Discuss DNR or withdrawal of care, Hospice)? DNR status @ -No What co-morbidities impacted this encounter? (DM, HTN, Smoking, COPD, CAD, Cancer, CVA, ARF, Chemo, Hep., AIDS, mental health diagnosis, sleep apnea, morbid obesity)? @ -None Was patient admitted / discharged? Hospital course, mention meds given and route, prescriptions, significant lab abnormalities, going to OR and other pertinent info. @ -Discharge. 84-year-old female with lower extremity edema. Examination patient noted to have bilateral 2+ pitting edema with the left lower extremity more edematous than the right. Pedal pulses are intact. Patient has full sensation. EKG reveals sinus rhythm and vitals are stable. She is not exhibiting any symptoms of respiratory distress. Pulmonary examination benign. CBC unremarkable, CMP reveals mild hyponatremia of 133 elevated BUN 27 and creatinine 1.86 which appears chronic, mild hypermagnesemia of 2.5, BNP not elevated at 653. Patient is provided with IM dose of Lasix 40 mg and is instructed to increase her home dose from 10 mg to 20 mg daily for 1 week. Recommend that she follow-up with her primary care provider for repeat CMP to monitor electrolytes. All questions answered at bedside and strict return prior discussed with the patient she is verbalized understanding. Discussed with Dr. Crawford Undiagnosed new problem with uncertain prognosis? @ -No Drug Therapy requiring intensive monitoring for toxicity (Heparin, Nitro, Insulin, Cardizem)? @ -No Were any procedures done? @ -No Diagnosis/symptom? @ -Bilateral lower extremity edema Acute, or Chronic, or Acute on Chronic? @ -acute Uncomplicated (without systemic symptoms) or Complicated (systemic symptoms)? @ -uncomplicated Side effects of treatment? @ -No Exacerbation, Progression, or Severe Exacerbation? @ -No Poses a threat to life or bodily function? How? (Chest pain, USA, NM, pneumonia, PE, COPD, DKA, ARF, appy, cholecystitis, CVA, Diverticulitis, Homicidal, Suicidal, threat to staff... and all critical care pts) @ -No - Lab Data Result diagrams: 08/01/24 20:35 08/01/24 20:35 Lab Results 08/01/24 08/01/24 Range/Units 20:35 20:35 WBC 5.1 (3.8-10.6) k/uL RBC 3.51 L (3.80-5.40) m/uL Hgb 10.4 L (11.4-16.0) gm/dL Hct 32.5 L (34.0-46.0) % MCV 92.7 (80.0-100.0) fL MCH 29.5 (25.0-35.0) pg MCHC 31.9 (31.0-37.0) g/dL RDW 13.1 (11.5-15.5) % Plt Count 235 (150-450) k/uL MPV 7.1 Neutrophils % 56 % Lymphocytes % 25 % Monocytes % 8 % Eosinophils % 6 % Basophils % 1 % Neutrophils # 2.9 (1.3-7.7) k/uL Lymphocytes # 1.3 (1.0-4.8) k/uL Monocytes # 0.4 (0-1.0) k/uL Eosinophils # 0.3 (0-0.7) k/uL Basophils # 0.0 (0-0.2) k/uL Sodium 133 L (137-145) mmol/L Potassium 4.9 (3.5-5.1) mmol/L Chloride 98 (98-107) mmol/L Carbon Dioxide 28 (22-30) mmol/L Anion Gap 7 mmol/L BUN 27 H (7-17) mg/dL Creatinine 1.86 H (0.52-1.04) mg/dL Est GFR (CKD-EPI)AfAm 28 (>60 ml/min/1.73 sqM) Est GFR (CKD-EPI)NonAf 24 (>60 ml/min/1.73 sqM) Glucose 99 (74-99) mg/dL Calcium 9.3 (8.4-10.2) mg/dL Magnesium 2.5 H (1.6-2.3) mg/dL Total Bilirubin 0.4 (0.2-1.3) mg/dL AST 33 (14-36) U/L ALT 14 (4-34) U/L Alkaline Phosphatase 64 (38-126) U/L NT-Pro-B Natriuret Pep 653 pg/mL Total Protein 7.2 (6.3-8.2) g/dL Albumin 4.1 (3.5-5.0) g/dL Disposition Clinical Impression: Venous insufficiency, Lower extremity edema Disposition: HOME SELF-CARE Condition: Good Instructions (If sedation given, give patient instructions): Edema (ED) Additional Instructions: Return to the emergency department for any new or worsening symptoms. Recommend that you increase your daily dose of Lasix to 20 mg daily and follow-up with your primary care provider in 1 week for reevaluation of electrolytes. Continue to elevate legs while not ambulating and use compression stockings Is patient prescribed a controlled substance at d/c from ED?: No Referrals: Blaise Liao MD [Primary Care Provider] - 1-2 days Time of Disposition: 22:33
[2024-08-01 20:47] LABS: Basophils % (A) 1 %; Eosinophils # (A) 0.3 k/uL (0-0.7); Eosinophils % (A) 6 %; HCT 32.5 % (34.0-46.0); HGB 10.4 gm/dL (11.4-16.0); Lymphocytes # (A) 1.3 k/uL (1.0-4.8); Lymphocytes % (A) 25 %; MCH 29.5 pg (25.0-35.0); MCHC 31.9 g/dL (31.0-37.0); MCV 92.7 fL (80.0-100.0); Mean Platelet Volume 7.1; Monocytes # (A) 0.4 k/uL (0-1.0); Monocytes % (A) 8 %; Neutrophils # (A) 2.9 k/uL (1.3-7.7); Neutrophils % (A) 56 %; Platelet Count 235 k/uL (150-450); RBC 3.51 m/uL (3.80-5.40); RDW 13.1 % (11.5-15.5); WBC 5.1 k/uL (3.8-10.6)
[2024-08-01] MEDS: ACETAMINOPHEN TAB 500 MG TAB PO STA (21:09)
[2024-08-01 22:12] LABS: ALT 14 U/L (4-34); AST 33 U/L (14-36); African American GFR (CKD) 28 (>60 ml/min/1.73 sqM); Albumin 4.1 g/dL (3.5-5.0); Alkaline Phosphatase 64 U/L (38-126); Anion Gap 7 mmol/L; Blood Urea Nitrogen 27 mg/dL (7-17); Calcium 9.3 mg/dL (8.4-10.2); Carbon Dioxide 28 mmol/L (22-30); Chloride 98 mmol/L (98-107); Glucose 99 mg/dL (74-99); Magnesium 2.5 mg/dL (1.6-2.3); Non-African American GFR(CKD) 24 (>60 ml/min/1.73 sqM); Potassium 4.9 mmol/L (3.5-5.1); Sodium 133 mmol/L (137-145); Total Bilirubin 0.4 mg/dL (0.2-1.3); Total Protein 7.2 g/dL (6.3-8.2)
[2024-08-01 22:20] LABS: NT-Pro-B-Type Natriuretic Pept 653 pg/mL
[2024-08-01] MEDS: FUROSEMIDE 10 MG/ML 2 ML VIAL IM ONE (22:26)
[2024-08-01 22:56] VITALS: BP 140/89; PULSE 80; RESP 18
== END 2024-08-01 22:56 | disposition home or self-care (01) ==
LOC: EC 19:46
CPT/HCPCS: 36415; 80053; 83735; 83880; 85025; 93005; 96372; 99284